=== PATIENT | male | born 1945 | race Caucasian/White ===

== ENCOUNTER 2017-11-09 19:10 | Inpatient (IN) | payer MEDICARE, OTHER ==
[~2017-11-09] VITALS: Ht 193 cm; Wt 82.5 kg
[~2017-11-09 19:10] MED LIST: AEC81 PO; ALEN5TAB PO; AMIO200T44 PO; APIX5TAB PO; ASCO500T9 PO; ATOR40TA71 PO; CALC-916 PO; FERR-82 PO; FEXO180T94 PO; METO100T14 PO; METO2.5T2 PO; METR500T PO; MONT10TA21 PO; MULT-1203 PO; ROPI0.255 PO; SERT100T12 PO; TIOT18CA3 IH
[2017-11-09 19:40] LABS: BASOPHILS % (AUTO) 0.7 % (0.0-5.0); EOSINOPHILS % (AUTO) 0.8 % (0.0-8.0); HEMATOCRIT 42.9 % (42-54); LYMPHOCYTES % (AUTO) 14.4 % (21.0-51.0); MEAN CORPUSCULAR HEMOGLOBIN 31.5 pg (27.0-33.0); MEAN CORPUSCULAR HGB CONC 33.6 g/dL (32.0-36.0); MEAN CORPUSCULAR VOLUME 93.6 fL (79-99); MONOCYTES % (AUTO) 9.4 % (3.0-13.0); NEUTROPHILS % (AUTO) 74.7 % (40.0-77.0); PLATELET COUNT (AUTO) 260 K/uL (130-400); RED BLOOD CELL COUNT(AUTO) 4.59 MIL/uL (4.50-6.20); RED CELL DISTRIBUTION WIDTH 14.8 % (11.0-15.5); WHITE BLOOD COUNT (AUTO) 9.9 K/uL (4.8-10.8)
[2017-11-09 19:55] LABS: CREATININE 1.5 mg/dL (0.5-1.5)
[2017-11-09 19:59] LABS: ALBUMIN 3.3 g/dL (3.5-5.0); BILIRUBIN,TOTAL 0.8 mg/dL (0.2-1.0); TOTAL PROTEIN, SERUM 7.5 g/dL (6.0-8.3)
[2017-11-09 20:05] LABS: APPEARANCE,URINE Cloudy (CLEAR); BILIRUBIN,URINE Negative (NEGATIVE); COLOR,URINE Yellow (YELLOW); GLUCOSE, URINE (UA) Negative (NEGATIVE); KETONES,URINE Negative (NEGATIVE); LEUKOCYTE ESTERASE ,URINE Trace (NEGATIVE); NITRATE,URINE Negative (NEGATIVE); OCCULT BLOOD,URINE Negative (NEGATIVE); PROTEIN,URINE Negative (NEGATIVE)
[2017-11-09 20:15] LABS: RBC,URINE None Seen /HPF (0-1)
[2017-11-09 20:16] LABS: AMORPHOUS SEDIMENT,UR Few /LPF (None Seen); BACTERIA,URINE Few /HPF (None Seen); MUCUS,URINE Few LPF (None Seen); SQUAMOUS EPITHELIAL CELL,UR None Seen /HPF (0-2); WBC,URINE 0-1 /HPF (0-1)
[2017-11-09 20:52] LABS: ABG BASE EXCESS 1.1 mmol/L (-2.0-3.0); ABG HCO3 24.5 mmol/L (21.0-28.0); ABG OXYGEN SATURATION 96.3 % (95.0-99.0); ABG PCO2 35 mmHg (35-48)
[2017-11-10] MEDS ORDERED: HYDRALAZINE HCL 20 MG/ML VIAL IV PRN
[2017-11-10 05:45] LABS: THYROID STIMULATING HORMONE 7.06 uIU/mL (0.36-3.74)
[2017-11-10] MEDS: FAMOTIDINE 20MG TAB 20 MG TAB PO SCH (09:00)
[2017-11-10] MEDS ORDERED: ENOXAPARIN SODIUM 30 MG/0.3 ML SQ SCH (09:00)
[2017-11-10] MEDS ORDERED: ENOXAPARIN SODIUM 30 MG/0.3 ML SQ ONE (11:33)
[2017-11-10] MEDS ORDERED: FAMOTIDINE 20MG TAB 20 MG TAB ONE (11:33)
[2017-11-10 22:05] VITALS: BP 146/70
[2017-11-10] MEDS ORDERED: SODIUM CHLORIDE 0.9% 1000ML 1,000 ML IV ONE (22:30)
[2017-11-10] MEDS ORDERED: SODIUM CHLORIDE 0.9% 1000ML 1,000 ML IV SCH (23:45)
[2017-11-10] MEDS ORDERED: HALOPERIDOL LACTATE 5 MG/ML VIAL IV SCH (23:45)
[2017-11-10] MEDS ORDERED: PHARMACY COMMUNICATION MISC SCH (23:45)
[2017-11-11 03:38] VITALS: BP 137/91
[2017-11-11 07:00] VITALS: BP_SYST 120; BP_SYST 131; BP_SYST 134; BP_DIAS 76; BP_DIAS 85; BP_DIAS 91
[2017-11-11] MEDS: SPIRIVA 18MCG IH SCH (09:00)
[2017-11-11] MEDS ORDERED: AMIODARONE HCL 200 MG TABLET PO SCH (09:00)
[2017-11-11] MEDS ORDERED: METOLAZONE 2.5 MG TABLET PO SCH (09:00)
[2017-11-11] MEDS: ASPIRIN 81 MG EC TAB PO SCH (10:56)
[2017-11-11] MEDS: APIXABAN 5 MG TABLET PO SCH ×2 (10:56→21:05)
[2017-11-11] MEDS: FAMOTIDINE 20MG TAB 20 MG TAB PO SCH (11:43)
[2017-11-11] MEDS ORDERED: PRAZ1CAP5 PO (13:30)
[2017-11-11] MEDS ORDERED: POTA20TA12 PO (13:30)
[2017-11-11] MEDS ORDERED: DULO60CA63 PO (13:30)
[2017-11-11] MEDS ORDERED: FURO40SO4 PO (13:30)
[2017-11-11 15:23] VITALS: BP 136/87
[2017-11-11 19:20] VITALS: BP 128/83
[2017-11-11] MEDS: PINDOLOL 5 MG TAB PO SCH (21:05)
[2017-11-11] MEDS: MONTELUKAST SODIUM 10 MG TAB PO SCH (21:05)
[2017-11-11] MEDS: ATORVASTATIN CALCIUM 40 MG TABLET PO SCH (21:06)
[2017-11-12] VITALS (7 sets, daily range): BP systolic 104–147; BP diastolic 66–88
[2017-11-12 04:42] LABS: BASOPHILS % (AUTO) 0.7 % (0.0-5.0); EOSINOPHILS % (AUTO) 0.8 % (0.0-8.0); HEMATOCRIT 42.5 % (42-54); LYMPHOCYTES % (AUTO) 18.4 % (21.0-51.0); MEAN CORPUSCULAR HEMOGLOBIN 31.9 pg (27.0-33.0); MEAN CORPUSCULAR HGB CONC 34.1 g/dL (32.0-36.0); MEAN CORPUSCULAR VOLUME 93.5 fL (79-99); MONOCYTES % (AUTO) 12.5 % (3.0-13.0); NEUTROPHILS % (AUTO) 67.6 % (40.0-77.0); NUCLEATED RED BLOOD CELLS 0.1 % (0.0-0.19); PLATELET COUNT (AUTO) 248 K/uL (130-400); RED BLOOD CELL COUNT(AUTO) 4.54 MIL/uL (4.50-6.20); RED CELL DISTRIBUTION WIDTH 14.4 % (11.0-15.5); WHITE BLOOD COUNT (AUTO) 10.6 K/uL (4.8-10.8)
[2017-11-12 04:52] LABS: CREATININE 1.3 mg/dL (0.5-1.5)
[2017-11-12] MEDS: ALENDRONATE SODIUM 5 MG PO SCH (07:00)
[2017-11-12] MEDS: MULTIVITAMIN TABLET PO SCH (09:00)
[2017-11-12] MEDS: FAMOTIDINE 20MG TAB 20 MG TAB PO SCH (09:00)
[2017-11-12] MEDS: ASCORBIC ACID 500 MG TAB PO SCH (09:00)
[2017-11-12] MEDS: APIXABAN 5 MG TABLET PO SCH ×2 (09:02→20:28)
[2017-11-12] MEDS: CALCIUM CARBONATE 500 MG TABLET PO SCH (09:02)
[2017-11-12] MEDS: PINDOLOL 5 MG TAB PO SCH ×2 (09:02→20:29)
[2017-11-12] MEDS: ASPIRIN 81 MG EC TAB PO SCH (09:02)
[2017-11-12] MEDS ORDERED: ALPRAZOLAM 0.5 MG TABLET PO ONE ×2 (14:00→16:30)
[2017-11-12] MEDS ORDERED: ACETAMINOPHEN 325 MG TAB PO PRN (15:45)
[2017-11-12] MEDS: MONTELUKAST SODIUM 10 MG TAB PO SCH (20:28)
[2017-11-12] MEDS: ALPRAZOLAM 0.5 MG TABLET PO SCH (20:28)
[2017-11-12] MEDS: ATORVASTATIN CALCIUM 40 MG TABLET PO SCH (20:28)
[2017-11-12] MEDS: SPIRIVA 18MCG IH SCH (20:30)
[2017-11-13 03:45] VITALS: BP 122/81
[2017-11-13 04:41] LABS: BASOPHILS % (AUTO) 0.6 % (0.0-5.0); EOSINOPHILS % (AUTO) 0.6 % (0.0-8.0); HEMATOCRIT 47.4 % (42-54); LYMPHOCYTES % (AUTO) 18.4 % (21.0-51.0); MEAN CORPUSCULAR HEMOGLOBIN 31.7 pg (27.0-33.0); MEAN CORPUSCULAR HGB CONC 33.9 g/dL (32.0-36.0); MEAN CORPUSCULAR VOLUME 93.4 fL (79-99); MONOCYTES % (AUTO) 12.9 % (3.0-13.0); NEUTROPHILS % (AUTO) 67.5 % (40.0-77.0); PLATELET COUNT (AUTO) 248 K/uL (130-400); RED BLOOD CELL COUNT(AUTO) 5.08 MIL/uL (4.50-6.20); RED CELL DISTRIBUTION WIDTH 14.7 % (11.0-15.5); WHITE BLOOD COUNT (AUTO) 11.4 K/uL (4.8-10.8)
[2017-11-13 04:54] LABS: CREATININE 1.6 mg/dL (0.5-1.5)
[2017-11-13] MEDS: ALENDRONATE SODIUM 5 MG PO SCH (07:00)
[2017-11-13 08:09] VITALS: BP 128/83
[2017-11-13] MEDS: ALPRAZOLAM 0.5 MG TABLET PO SCH (09:00)
[2017-11-13] MEDS: FAMOTIDINE 20MG TAB 20 MG TAB PO SCH (09:00)
[2017-11-13] MEDS: MULTIVITAMIN TABLET PO SCH (09:05)
[2017-11-13] MEDS: AMIODARONE HCL 200 MG TABLET PO SCH (09:06)
[2017-11-13] MEDS: APIXABAN 5 MG TABLET PO SCH ×2 (09:06→21:04)
[2017-11-13] MEDS: PINDOLOL 5 MG TAB PO SCH ×2 (09:06→21:04)
[2017-11-13] MEDS: ASPIRIN 81 MG EC TAB PO SCH (09:06)
[2017-11-13] MEDS: ASCORBIC ACID 500 MG TAB PO SCH (09:06)
[2017-11-13] MEDS: CALCIUM CARBONATE 500 MG TABLET PO SCH (09:07)
[2017-11-13] MEDS: SPIRIVA 18MCG IH SCH (09:19)
[2017-11-13 11:00] VITALS: BP 119/87
[2017-11-13] MEDS ORDERED: ONDANSETRON HCL 4 MG/2 ML VIAL IVP PRN (13:00)
[2017-11-13 18:29] VITALS: BP 110/75
[2017-11-13] MEDS: IPRATROPIUM/ALBUTEROL SULFATE 3 ML SOLUTION IH SCH ×2 (18:33→23:15)
[2017-11-13 19:50] VITALS: BP 105/76
[2017-11-13] MEDS: ATORVASTATIN CALCIUM 40 MG TABLET PO SCH (21:04)
[2017-11-13] MEDS: MONTELUKAST SODIUM 10 MG TAB PO SCH (21:04)
[2017-11-13 23:50] VITALS: BP 102/72
[2017-11-14 03:18] VITALS: BP 110/74
[2017-11-14 04:56] LABS: BASOPHILS % (AUTO) 0.3 % (0.0-5.0); EOSINOPHILS % (AUTO) 0.4 % (0.0-8.0); LYMPHOCYTES % (AUTO) 12.3 % (21.0-51.0); MEAN CORPUSCULAR HEMOGLOBIN 32.2 pg (27.0-33.0); MEAN CORPUSCULAR HGB CONC 34.4 g/dL (32.0-36.0); MEAN CORPUSCULAR VOLUME 93.6 fL (79-99); MONOCYTES % (AUTO) 8.9 % (3.0-13.0); NEUTROPHILS % (AUTO) 78.1 % (40.0-77.0); PLATELET COUNT (AUTO) 247 K/uL (130-400); RED BLOOD CELL COUNT(AUTO) 4.49 MIL/uL (4.50-6.20); RED CELL DISTRIBUTION WIDTH 14.8 % (11.0-15.5); WHITE BLOOD COUNT (AUTO) 13.5 K/uL (4.8-10.8)
[2017-11-14 05:08] LABS: CREATININE 1.7 mg/dL (0.5-1.5); POTASSIUM 3.6 mmol/L (3.5-5.1)
[2017-11-14] MEDS: IPRATROPIUM/ALBUTEROL SULFATE 3 ML SOLUTION IH SCH ×3 (06:09→18:32)
[2017-11-14] MEDS: ALENDRONATE SODIUM 5 MG PO SCH (07:00)
[2017-11-14 07:29] VITALS: BP 100/63
[2017-11-14] MEDS: SPIRIVA 18MCG IH SCH (09:00)
[2017-11-14] MEDS: PINDOLOL 5 MG TAB PO SCH ×2 (09:00→20:57)
[2017-11-14] MEDS: APIXABAN 5 MG TABLET PO SCH ×2 (09:18→20:57)
[2017-11-14] MEDS: AMIODARONE HCL 200 MG TABLET PO SCH (09:18)
[2017-11-14] MEDS: MULTIVITAMIN TABLET PO SCH (09:18)
[2017-11-14] MEDS: ASCORBIC ACID 500 MG TAB PO SCH (09:18)
[2017-11-14] MEDS: CALCIUM CARBONATE 500 MG TABLET PO SCH (09:18)
[2017-11-14] MEDS: MEMANTINE HCL 5 MG TABLET PO SCH (09:19)
[2017-11-14] MEDS: ASPIRIN 81 MG EC TAB PO SCH (09:19)
[2017-11-14] MEDS: FAMOTIDINE 20MG TAB 20 MG TAB PO SCH (09:20)
[2017-11-14 11:55] VITALS: BP 110/75
[2017-11-14 15:19] VITALS: BP 98/57
[2017-11-14 19:43] VITALS: BP 103/68
[2017-11-14] MEDS: ATORVASTATIN CALCIUM 40 MG TABLET PO SCH (20:57)
[2017-11-14] MEDS: MONTELUKAST SODIUM 10 MG TAB PO SCH (20:57)
[2017-11-14 22:52] LABS: APPEARANCE,URINE Clear (CLEAR); BILIRUBIN,URINE Negative (NEGATIVE); COLOR,URINE Yellow (YELLOW); GLUCOSE, URINE (UA) Negative (NEGATIVE); KETONES,URINE Negative (NEGATIVE); LEUKOCYTE ESTERASE ,URINE Negative (NEGATIVE); NITRATE,URINE Negative (NEGATIVE); OCCULT BLOOD,URINE Negative (NEGATIVE); PROTEIN,URINE Negative (NEGATIVE)
[2017-11-15] VITALS: BP 118/72
[2017-11-15] MEDS: IPRATROPIUM/ALBUTEROL SULFATE 3 ML SOLUTION IH SCH ×3 (00:47→11:44)
[2017-11-15 04:00] VITALS: BP 114/84
[2017-11-15 05:00] LABS: BASOPHILS % (AUTO) 0.3 % (0.0-5.0); EOSINOPHILS % (AUTO) 0.8 % (0.0-8.0); HEMATOCRIT 41.3 % (42-54); LYMPHOCYTES % (AUTO) 16.4 % (21.0-51.0); MEAN CORPUSCULAR HEMOGLOBIN 32.1 pg (27.0-33.0); MEAN CORPUSCULAR HGB CONC 34.3 g/dL (32.0-36.0); MEAN CORPUSCULAR VOLUME 93.7 fL (79-99); MONOCYTES % (AUTO) 11.9 % (3.0-13.0); NEUTROPHILS % (AUTO) 70.6 % (40.0-77.0); PLATELET COUNT (AUTO) 207 K/uL (130-400); RED BLOOD CELL COUNT(AUTO) 4.41 MIL/uL (4.50-6.20); RED CELL DISTRIBUTION WIDTH 14.4 % (11.0-15.5); WHITE BLOOD COUNT (AUTO) 9.3 K/uL (4.8-10.8)
[2017-11-15 05:20] LABS: ALBUMIN 3.2 g/dL (3.5-5.0); BILIRUBIN,TOTAL 0.9 mg/dL (0.2-1.0); CREATININE 1.6 mg/dL (0.5-1.5); MAGNESIUM 2.1 mg/dL (1.80-2.40); PHOSPHORUS 3.5 mg/dL (2.5-4.9); POTASSIUM 3.7 mmol/L (3.5-5.1); TOTAL PROTEIN, SERUM 7.1 g/dL (6.0-8.3); URIC ACID 5.4 mg/dL (2.6-7.2)
[2017-11-15] MEDS: ALENDRONATE SODIUM 5 MG PO SCH (07:00)
[2017-11-15 08:00] VITALS: BP 108/69
[2017-11-15] MEDS: CALCIUM CARBONATE 500 MG TABLET PO SCH (08:25)
[2017-11-15] MEDS: ASPIRIN 81 MG EC TAB PO SCH (08:25)
[2017-11-15] MEDS: ASCORBIC ACID 500 MG TAB PO SCH (08:25)
[2017-11-15] MEDS: PINDOLOL 5 MG TAB PO SCH (08:25)
[2017-11-15] MEDS: MEMANTINE HCL 5 MG TABLET PO SCH (08:25)
[2017-11-15] MEDS: AMIODARONE HCL 200 MG TABLET PO SCH (08:25)
[2017-11-15] MEDS: APIXABAN 5 MG TABLET PO SCH (08:25)
[2017-11-15] MEDS: MULTIVITAMIN TABLET PO SCH (08:25)
[2017-11-15] MEDS: SPIRIVA 18MCG IH SCH (08:27)
[2017-11-15] MEDS ORDERED: FOLIC ACID/VITAMIN B COMP W-C 1 MG CAPSULE PO SCH (09:00)
[2017-11-15 11:53] VITALS: BP 124/81
== END 2017-11-15 17:30 | DRG 683 ==
LOC: EDH 19:10 → EDHIP 22:31 → OBSVTOIN 22:31 → 3CH 11-10 21:35
PROVIDERS: ADMIT Internal Medicine Nephrology; ATTEND Internal Medicine Nephrology
PROC: 5A09357 Assistance with Respiratory Ventilation, Less than 24 Consecutive Hours, Continuous Positive Airway Pressure (ICD-10-PCS; principal; 2017-11-13)
DX: N17.9 Acute kidney failure, unspecified (principal); F05 Delirium due to known physiological condition; E11.22 Type 2 diabetes mellitus with diabetic chronic kidney disease; I42.0 Dilated cardiomyopathy; I95.1 Orthostatic hypotension; I48.91 Unspecified atrial fibrillation; J84.10 Pulmonary fibrosis, unspecified; N28.1 Cyst of kidney, acquired; D64.9 Anemia, unspecified; J44.9 Chronic obstructive pulmonary disease, unspecified; E66.9 Obesity, unspecified; E78.5 Hyperlipidemia, unspecified; F03.90 Unspecified dementia, unspecified severity, without behavioral disturbance, psychotic disturbance, mood disturbance, and anxiety; F41.9 Anxiety disorder, unspecified; G47.33 Obstructive sleep apnea (adult) (pediatric); I12.9 Hypertensive chronic kidney disease with stage 1 through stage 4 chronic kidney disease, or unspecified chronic kidney disease; N18.9 Chronic kidney disease, unspecified; I25.10 Atherosclerotic heart disease of native coronary artery without angina pectoris; L92.9 Granulomatous disorder of the skin and subcutaneous tissue, unspecified; M19.90 Unspecified osteoarthritis, unspecified site; R79.1 Abnormal coagulation profile; Z79.01 Long term (current) use of anticoagulants; Z86.73 Personal history of transient ischemic attack (TIA), and cerebral infarction without residual deficits; Z86.79 Personal history of other diseases of the circulatory system; Z95.0 Presence of cardiac pacemaker; Z68.22 Body mass index [BMI] 22.0-22.9, adult
CPT/HCPCS: 36415; 36600; 70450; 71045; 71250; 76770; 80048; 80053; 80061; 81001; 81003; 82150; 82803; 83605; 83690; 83735; 83880; 83935; 84100; 84300; 84443; 84484; 84550; 85025; 85378; 87804; 93005; 94640; 94664; 97039; 99291; J0360; J1630; J1650; J7030

== ENCOUNTER 2018-07-04 22:25 | Observation (INO) | payer OTHER ==
[~2018-07-04] VITALS: Ht 180.3 cm; Wt 95.5 kg
[~2018-07-04 22:25] MED LIST changes: -AMIO200T44 PO; +DULO60CA63 PO; -FERR-82 PO; +FURO40SO4 PO; -METO100T14 PO; -METO2.5T2 PO; +POTA20TA12 PO; +PRAZ1CAP5 PO; -ROPI0.255 PO; -SERT100T12 PO
[2018-07-04 22:53] LABS: BASOPHILS % (AUTO) 0.7 % (0.0-5.0); HEMATOCRIT 40.1 % (42-54); LYMPHOCYTES % (AUTO) 12.2 % (21.0-51.0); MEAN CORPUSCULAR HEMOGLOBIN 29.8 pg (27.0-33.0); MEAN CORPUSCULAR HGB CONC 32.9 g/dL (32.0-36.0); MEAN CORPUSCULAR VOLUME 90.4 fL (79-99); MONOCYTES % (AUTO) 10.3 % (3.0-13.0); NEUTROPHILS % (AUTO) 75.8 % (40.0-77.0); PLATELET COUNT (AUTO) 174 K/uL (130-400); RED BLOOD CELL COUNT(AUTO) 4.43 MIL/uL (4.50-6.20); RED CELL DISTRIBUTION WIDTH 15.3 % (11.0-15.5); WHITE BLOOD COUNT (AUTO) 9.5 K/uL (4.8-10.8)
[2018-07-04 23:12] LABS: CREATININE 1.9 mg/dL (0.5-1.5); POTASSIUM 4.1 mmol/L (3.5-5.1)
[2018-07-04 23:17] LABS: ALBUMIN 3.4 g/dL (3.5-5.0); BILIRUBIN,TOTAL 0.5 mg/dL (0.2-1.0); TOTAL PROTEIN, SERUM 7.4 g/dL (6.0-8.3)
[2018-07-04 23:30] LABS: APPEARANCE,URINE CLEAR (CLEAR); BILIRUBIN,URINE Negative (NEGATIVE); COLOR,URINE Yellow (YELLOW); GLUCOSE, URINE (UA) Negative (NEGATIVE); KETONES,URINE Trace mg/dL (NEGATIVE); LEUKOCYTE ESTERASE ,URINE Negative (NEGATIVE); NITRATE,URINE Negative (NEGATIVE); OCCULT BLOOD,URINE Negative (NEGATIVE); PROTEIN,URINE Negative (NEGATIVE)
[2018-07-05] MEDS ORDERED: MORPHINE SULFATE 5 MG/ML VIAL IV PRN (01:45)
[2018-07-05] MEDS ORDERED: ONDANSETRON HCL 4 MG/2 ML VIAL IVP PRN (01:45)
--- NOTE | 2018-07-05 02:31 | NUR ---
REPORT RECEIVED FROM FADI HERBERT
--- NOTE | 2018-07-05 03:00 | NUR ---
PT ARRIVED TO UNIT. NO DISTRESS NOTED. STABLE.
[2018-07-05 04:00] VITALS: BP 149/105
--- NOTE | 2018-07-05 04:00 | NUR ---
PT ASSESSMENT- AAOX3. AT TIMES FORGETFUL ACCORDING TO REPORT. PERRLA. DISCOLORATION NOTED TO LEFT UPPER EYE, AND RIGHT LOWER EYE AREA. STATES OCCURRED POST FALL. HAS BROKEN FRONT TOOTH FROM PREVIOUS FALL. DISCOLORATIONS TO UPPER EXTREMITIES, SKIN TEAR TO LEFT ELBOW DUE TO FALL. ACTIVE BOWEL SOUNDS. LAST BM 07/04. STATES OCCASIONAL CONSTIPATION. LUNG SOUNDS. CLEAR TO UPPER LOBES. NO PAIN STATES AT THIS TIME. NO SOB. ROOM AIR. ABLE TO AMBULATE WITH MINIMAL ASSIST. NO EDEMA NOTED. HARD OF HEARING TO RIGHT EAR. MEDICATION LIST GIVEN TO NURSE. MEDICATIONS AT HOME.
[2018-07-05] MEDS ORDERED: LISI40TA4 PO (04:38)
[2018-07-05] MEDS ORDERED: AMIO200T5 PO (04:38)
[2018-07-05] MEDS ORDERED: LEVO25TA4 PO (04:38)
[2018-07-05] MEDS ORDERED: LEVO50TA6 PO (04:38)
[2018-07-05] MEDS ORDERED: MONT10TA21 PO (04:38)
[2018-07-05] MEDS ORDERED: MELA5TAB14 PO (04:38)
[2018-07-05] MEDS ORDERED: PIND10TA2 PO ×2 (04:38→11:38)
[2018-07-05] MEDS ORDERED: TORS5TAB12 PO (04:38)
[2018-07-05] MEDS ORDERED: PHARMACY COMMUNICATION MISC SCH (05:45)
[2018-07-05 07:38] VITALS: BP 135/76
[2018-07-05] MEDS ORDERED: AMIODARONE HCL 200 MG TABLET PO SCH (09:00)
[2018-07-05] MEDS ORDERED: PANTOPRAZOLE SODIUM 40 MG TABLET.DR PO SCH (09:00)
[2018-07-05] MEDS ORDERED: TORSEMIDE 20 MG TAB PO SCH (09:00)
[2018-07-05] MEDS ORDERED: PINDOLOL 5 MG TAB PO SCH (09:00)
[2018-07-05] MEDS ORDERED: KETOROLAC TROMETHAMINE 30MG/ML IV SCH (09:30)
[2018-07-05 09:54] LABS: CREATINE KINASE, TOTAL 132 U/L (21-232); MYOGLOBIN 128 ng/mL (10-92); TROPONIN I < 0.04 ng/mL (0.00-0.06)
[2018-07-05] MEDS ORDERED: PRAZ1CAP5 PO (11:38)
[2018-07-05] MEDS ORDERED: LEVO25TA54 PO (11:38)
[2018-07-05] MEDS ORDERED: ATOR40TA69 PO (11:38)
[2018-07-05] MEDS ORDERED: ASCO500C18 PO (11:38)
[2018-07-05] MEDS ORDERED: LEVO50 PO (11:38)
[2018-07-05] MEDS ORDERED: MIDO5TAB PO (11:38)
[2018-07-05] MEDS ORDERED: BUDE10.22 IH (11:38)
[2018-07-05 11:57] VITALS: BP 143/77
[2018-07-05] MEDS ORDERED: MONTELUKAST SODIUM 10 MG TAB PO SCH (21:00)
[2018-07-05] MEDS ORDERED: LISINOPRIL 40 MG TABLET PO SCH (21:00)
[2018-07-05] MEDS ORDERED: **HM** MELATONIN 10MG PO SCH (21:00)
[2018-07-06] MEDS ORDERED: LEVOTHYROXINE 50 MCG TABLET PO SCH (09:00)
[2018-07-07] MEDS ORDERED: LEVOTHYROXINE 25 MCG TABLET PO SCH (09:00)
== END 2018-07-05 12:38 | disposition home or self-care (01) ==
LOC: EDH 22:25 → INTOOBSV 07-05 01:21 → EDHIP 07-05 01:21 → 2AH 07-05 02:31
PROVIDERS: ADMIT Hospitalist; ATTEND Hospitalist
DX: R07.89 Other chest pain (principal); I11.0 Hypertensive heart disease with heart failure; I50.9 Heart failure, unspecified; E78.5 Hyperlipidemia, unspecified; G47.33 Obstructive sleep apnea (adult) (pediatric); I42.9 Cardiomyopathy, unspecified; I48.91 Unspecified atrial fibrillation; I95.1 Orthostatic hypotension; J44.9 Chronic obstructive pulmonary disease, unspecified; Z82.0 Family history of epilepsy and other diseases of the nervous system; Z82.49 Family history of ischemic heart disease and other diseases of the circulatory system; Z82.5 Family history of asthma and other chronic lower respiratory diseases; Z83.3 Family history of diabetes mellitus; Z86.73 Personal history of transient ischemic attack (TIA), and cerebral infarction without residual deficits; Z86.79 Personal history of other diseases of the circulatory system; Z91.81 History of falling; Z95.0 Presence of cardiac pacemaker; Z79.01 Long term (current) use of anticoagulants
CPT/HCPCS: 36415 ×2; 70450; 71046; 80053; 81003; 82550 ×2; 83874; 83880; 84484 ×2; 85025; 93005; 96374; 99284; G0378 ×11; J1885

== ENCOUNTER 2018-07-15 09:30 | Outpatient (CLI) | payer MEDICARE ==
[~2018-07-15 09:30] MED LIST changes: -ALEN5TAB PO; +AMIO200T5 PO; +ASCO500C18 PO; -ASCO500T9 PO; +ATOR40TA69 PO; -ATOR40TA71 PO; +BUDE10.22 IH; -FURO40SO4 PO; +LEVO25TA54 PO; +LEVO50 PO; +MELA5TAB14 PO; -METR500T PO; +MIDO5TAB PO; +TORS5TAB12 PO
[2018-07-15 13:08] VITALS: BP 110/72
== END 2018-08-26 14:14 | disposition home or self-care (01) ==
LOC: WHH 09:30
PROVIDERS: ATTEND Podiatrist Foot & Ankle Surgery
DX: L89.892 Pressure ulcer of other site, stage 2 (principal); I73.9 Peripheral vascular disease, unspecified; B35.1 Tinea unguium; J44.9 Chronic obstructive pulmonary disease, unspecified; I10 Essential (primary) hypertension; E78.5 Hyperlipidemia, unspecified; I48.91 Unspecified atrial fibrillation; G47.33 Obstructive sleep apnea (adult) (pediatric); G62.9 Polyneuropathy, unspecified; Z95.0 Presence of cardiac pacemaker; Z86.73 Personal history of transient ischemic attack (TIA), and cerebral infarction without residual deficits
CPT/HCPCS: 11042; 11721; A4450; A6207

== ENCOUNTER → 2018-07-29 | Outpatient (CLI) | payer MEDICARE ==
[2018-07-29 15:22] VITALS: BP 129/82
== END | disposition home or self-care (01) ==
LOC: WHH 09:15
PROVIDERS: ATTEND Podiatrist Foot & Ankle Surgery
DX: L89.892 Pressure ulcer of other site, stage 2 (principal); I11.0 Hypertensive heart disease with heart failure; I50.9 Heart failure, unspecified; I48.91 Unspecified atrial fibrillation; I73.9 Peripheral vascular disease, unspecified; G62.9 Polyneuropathy, unspecified; G47.30 Sleep apnea, unspecified; E78.5 Hyperlipidemia, unspecified; J44.9 Chronic obstructive pulmonary disease, unspecified; Z86.79 Personal history of other diseases of the circulatory system; Z79.01 Long term (current) use of anticoagulants; Z95.0 Presence of cardiac pacemaker
CPT/HCPCS: 97597; A6207

== ENCOUNTER → 2018-08-12 | Outpatient (CLI) | payer MEDICARE ==
[2018-08-12 13:18] VITALS: BP 127/82
== END | disposition home or self-care (01) ==
LOC: WHH 09:30
PROVIDERS: ATTEND Podiatrist Foot & Ankle Surgery
DX: L89.892 Pressure ulcer of other site, stage 2 (principal); I11.0 Hypertensive heart disease with heart failure; I50.9 Heart failure, unspecified; I48.91 Unspecified atrial fibrillation; I73.9 Peripheral vascular disease, unspecified; J44.9 Chronic obstructive pulmonary disease, unspecified; E78.5 Hyperlipidemia, unspecified; G47.33 Obstructive sleep apnea (adult) (pediatric); G62.9 Polyneuropathy, unspecified; Z95.0 Presence of cardiac pacemaker; Z79.01 Long term (current) use of anticoagulants; Z86.73 Personal history of transient ischemic attack (TIA), and cerebral infarction without residual deficits
CPT/HCPCS: G0463

== ENCOUNTER → 2018-08-26 | Outpatient (CLI) | payer MEDICARE ==
[2018-08-26 13:06] VITALS: BP 124/81
== END | disposition home or self-care (01) ==
LOC: WHH 09:15
PROVIDERS: ATTEND Podiatrist Foot & Ankle Surgery
DX: L89.892 Pressure ulcer of other site, stage 2 (principal); I11.0 Hypertensive heart disease with heart failure; I50.9 Heart failure, unspecified; I48.91 Unspecified atrial fibrillation; I73.9 Peripheral vascular disease, unspecified; J44.9 Chronic obstructive pulmonary disease, unspecified; E78.5 Hyperlipidemia, unspecified; G62.9 Polyneuropathy, unspecified; G47.33 Obstructive sleep apnea (adult) (pediatric); Z99.2 Dependence on renal dialysis; Z79.01 Long term (current) use of anticoagulants; Z86.73 Personal history of transient ischemic attack (TIA), and cerebral infarction without residual deficits
CPT/HCPCS: 97597

== ENCOUNTER 2019-03-09 16:57 | Emergency (ER) | payer MEDICARE ==
[~2019-03-09 16:57] MED LIST changes: -DULO60CA63 PO; +DULO60CA64 PO
[2019-03-09 17:18] LABS: BASOPHILS % (AUTO) 0.7 % (0.0-5.0); EOSINOPHILS % (AUTO) 0.9 % (0.0-8.0); HEMATOCRIT 42.5 % (42-54); LYMPHOCYTES % (AUTO) 13.7 % (21.0-51.0); MEAN CORPUSCULAR HEMOGLOBIN 30.5 pg (27.0-33.0); MEAN CORPUSCULAR HGB CONC 33.8 g/dL (32.0-36.0); MEAN CORPUSCULAR VOLUME 90.2 fL (79-99); MONOCYTES % (AUTO) 13.2 % (3.0-13.0); NEUTROPHILS % (AUTO) 71.5 % (40.0-77.0); NUCLEATED RED BLOOD CELLS 0.1 % (0.0-0.19); PLATELET COUNT (AUTO) 178 K/uL (130-400); RED BLOOD CELL COUNT(AUTO) 4.71 MIL/uL (4.50-6.20); RED CELL DISTRIBUTION WIDTH 15.6 % (11.0-15.5)
[2019-03-09 17:35] LABS: PARTIAL THROMBOPLASTIN TIME 30.2 SEC (26.3-35.5)
[2019-03-09 17:45] LABS: INR 1.09 (0.85-1.15); PROTHROMBIN TIME 11.4 SEC (9.6-11.6)
== END 2019-03-09 18:32 | disposition home or self-care (01) ==
LOC: EDH 16:57
DX: S51.012A Laceration without foreign body of left elbow, initial encounter (principal); S00.12XA Contusion of left eyelid and periocular area, initial encounter; J45.909 Unspecified asthma, uncomplicated; E78.5 Hyperlipidemia, unspecified; I11.0 Hypertensive heart disease with heart failure; I50.9 Heart failure, unspecified; Z95.810 Presence of automatic (implantable) cardiac defibrillator; W18.39XA Other fall on same level, initial encounter; Y93.01 Activity, walking, marching and hiking; Y92.89 Other specified places as the place of occurrence of the external cause; Y99.8 Other external cause status
CPT/HCPCS: 36415; 70450; 72125; 85025; 85610; 85730; 99291

== ENCOUNTER → 2019-03-16 | Outpatient (CLI) | payer MEDICARE ==
[~2019-03-16] MED LIST changes: -MIDO5TAB PO; +MIDO5TAB4 PO
== END | disposition home or self-care (01) ==
LOC: SHCH 14:32
PROVIDERS: ATTEND Internal Medicine Cardiovascular Disease
DX: I08.3 Combined rheumatic disorders of mitral, aortic and tricuspid valves (principal)
CPT/HCPCS: 93306

== ENCOUNTER → 2022-03-21 | Outpatient (CLI) | payer MEDICARE ==
[~2022-03-21] MED LIST changes: -AMIO200T5 PO; +AMIO200T68 PO; +POTA-192 PO; -POTA20TA12 PO
[2022-03-21 12:26] LABS: BASOPHILS % (AUTO) 0.7 % (0.0-5.0); EOSINOPHILS % (AUTO) 1.7 % (0.0-8.0); HEMATOCRIT 42.7 % (42-54); LYMPHOCYTES % (AUTO) 19.2 % (21.0-51.0); MEAN CORPUSCULAR HEMOGLOBIN 29.8 pg (27.0-33.0); MEAN CORPUSCULAR HGB CONC 32.1 g/dL (32.0-36.0); MONOCYTES % (AUTO) 12.6 % (3.0-13.0); NEUTROPHILS % (AUTO) 65.6 % (40.0-77.0); PLATELET COUNT (AUTO) 181 K/uL (130-400); RED BLOOD CELL COUNT(AUTO) 4.59 MIL/uL (4.50-6.20); RED CELL DISTRIBUTION WIDTH 14.9 % (11.0-15.5); WHITE BLOOD COUNT (AUTO) 5.7 K/uL (4.8-10.8)
[2022-03-21 13:01] LABS: B-TYPE NATRIURETIC PEPTIDE 76 pg/mL (0-100)
[2022-03-21 13:15] LABS: ALBUMIN 3.5 g/dL (3.5-5.0); CREATININE 1.3 mg/dL (0.5-1.5); MAGNESIUM 2.2 mg/dL (1.80-2.40); POTASSIUM 4.6 mmol/L (3.5-5.1); THYROID STIMULATING HORMONE 2.82 uIU/mL (0.36-3.74)
== END | disposition home or self-care (01) ==
LOC: LAB 11:32
PROVIDERS: ATTEND Internal Medicine Cardiovascular Disease
DX: I42.0 Dilated cardiomyopathy (principal); I47.2 Ventricular tachycardia; I10 Essential (primary) hypertension; E78.5 Hyperlipidemia, unspecified
CPT/HCPCS: 36415; 80053; 83735; 83880; 84436; 84443; 84479; 85025

== ENCOUNTER 2022-04-15 14:14 | Emergency (ER) | payer MEDICARE, OTHER ==
[~2022-04-15] VITALS: Ht 180.3 cm; Wt 117.9 kg
[2022-04-15 14:39] LABS: BASOPHILS % (AUTO) 0.4 % (0.0-5.0); EOSINOPHILS % (AUTO) 0.8 % (0.0-8.0); HEMATOCRIT 41.3 % (42-54); LYMPHOCYTES % (AUTO) 9.6 % (21.0-51.0); MEAN CORPUSCULAR HEMOGLOBIN 30.3 pg (27.0-33.0); MEAN CORPUSCULAR HGB CONC 32.7 g/dL (32.0-36.0); MEAN CORPUSCULAR VOLUME 92.6 fL (79-99); MONOCYTES % (AUTO) 7.6 % (3.0-13.0); NEUTROPHILS % (AUTO) 80.9 % (40.0-77.0); PLATELET COUNT (AUTO) 176 K/uL (130-400); RED BLOOD CELL COUNT(AUTO) 4.46 MIL/uL (4.50-6.20); WHITE BLOOD COUNT (AUTO) 9.4 K/uL (4.8-10.8)
[2022-04-15 14:49] LABS: CREATININE 1.2 mg/dL (0.5-1.5); POTASSIUM 4.4 mmol/L (3.5-5.1)
[2022-04-15 14:50] LABS: INR 1.07 (0.85-1.15); PROTHROMBIN TIME 11.6 SEC (9.6-11.6)
[2022-04-15 14:51] LABS: PARTIAL THROMBOPLASTIN TIME 29.6 SEC (26.3-35.5)
[2022-04-15 14:56] LABS: ALBUMIN 3.4 g/dL (3.5-5.0)
[2022-04-15 15:24] LABS: APPEARANCE,URINE CLEAR (CLEAR); BILIRUBIN,URINE NEGATIVE (NEGATIVE); COLOR,URINE LIGHT-YELLOW (YELLOW); GLUCOSE, URINE (UA) NEGATIVE (NEGATIVE); KETONES,URINE NEGATIVE (NEGATIVE); LEUKOCYTE ESTERASE ,URINE NEGATIVE Leu/uL (NEGATIVE); NITRATE,URINE NEGATIVE (NEGATIVE); OCCULT BLOOD,URINE NEGATIVE (NEGATIVE); PROTEIN,URINE NEGATIVE (NEGATIVE); UROBILINOGEN,URINE 0.2 mg/dL (0.2-1.0)
[2022-04-15 15:31] LABS: BACTERIA,URINE RARE /HPF (None Seen); HYALINE CASTS, URINE 0-1 /LPF (0-1 /LPF); RBC,URINE 0-1 /HPF (0-1)
[2022-04-15] MEDS ORDERED: CYCL5TAB PO (17:44)
[2022-04-15 17:48] VITALS: BP 149/94
== END 2022-04-15 17:53 | disposition home or self-care (01) ==
LOC: EDH 14:14
DX: M54.6 Pain in thoracic spine (principal); I11.0 Hypertensive heart disease with heart failure; I50.9 Heart failure, unspecified; Z79.01 Long term (current) use of anticoagulants; Z79.51 Long term (current) use of inhaled steroids; Z79.82 Long term (current) use of aspirin; Z95.810 Presence of automatic (implantable) cardiac defibrillator; W01.0XXA Fall on same level from slipping, tripping and stumbling without subsequent striking against object, initial encounter; Y93.89 Activity, other specified; Y92.89 Other specified places as the place of occurrence of the external cause; Y99.8 Other external cause status
CPT/HCPCS: 36415; 70450; 71250; 72125; 74176; 80053; 81001; 83880; 84484; 85025; 85610; 85730; 93005

== ENCOUNTER 2022-04-26 11:25 | Emergency (ER) | payer OTHER ==
[~2022-04-26] VITALS: Ht 182.9 cm; Wt 103.4 kg
[~2022-04-26 11:25] MED LIST changes: +CYCL5TAB PO
[2022-04-26 11:57] VITALS: BP 146/87
[2022-04-26 12:15] LABS: BASOPHILS % (AUTO) 0.5 % (0.0-5.0); EOSINOPHILS % (AUTO) 0.9 % (0.0-8.0); HEMATOCRIT 42.3 % (42-54); MEAN CORPUSCULAR HEMOGLOBIN 29.7 pg (27.0-33.0); MEAN CORPUSCULAR HGB CONC 32.6 g/dL (32.0-36.0); MONOCYTES % (AUTO) 7.6 % (3.0-13.0); NEUTROPHILS % (AUTO) 77.4 % (40.0-77.0); PLATELET COUNT (AUTO) 189 K/uL (130-400); RED BLOOD CELL COUNT(AUTO) 4.65 MIL/uL (4.50-6.20); RED CELL DISTRIBUTION WIDTH 14.5 % (11.0-15.5); WHITE BLOOD COUNT (AUTO) 9.6 K/uL (4.8-10.8)
[2022-04-26 12:36] LABS: CREATININE 1.2 mg/dL (0.5-1.5); POTASSIUM 4.1 mmol/L (3.5-5.1)
[2022-04-26 12:45] LABS: ALBUMIN 3.3 g/dL (3.5-5.0); TOTAL PROTEIN, SERUM 7.1 g/dL (6.0-8.3)
[2022-04-26 13:08] LABS: APPEARANCE,URINE SL CLOUDY (CLEAR); BILIRUBIN,URINE NEGATIVE (NEGATIVE); COLOR,URINE YELLOW (YELLOW); GLUCOSE, URINE (UA) NEGATIVE (NEGATIVE); KETONES,URINE NEGATIVE (NEGATIVE); LEUKOCYTE ESTERASE ,URINE LARGE Leu/uL (NEGATIVE); NITRATE,URINE NEGATIVE (NEGATIVE); OCCULT BLOOD,URINE TRACE-INTACT (NEGATIVE); PROTEIN,URINE NEGATIVE (NEGATIVE); UROBILINOGEN,URINE 0.2 mg/dL (0.2-1.0)
[2022-04-26 13:41] LABS: BACTERIA,URINE Moderate /HPF (None Seen); RBC,URINE 0-1 /HPF (0-1)
[2022-04-26 13:42] LABS: SQUAMOUS EPITHELIAL CELL,UR 0-2 /HPF (0-2)
[2022-04-26] MEDS ORDERED: CEPH500B PO (14:35)
== END 2022-04-26 14:52 | disposition home or self-care (01) ==
LOC: EDH 11:25
DX: N39.0 Urinary tract infection, site not specified (principal); I11.0 Hypertensive heart disease with heart failure; I50.9 Heart failure, unspecified; Z98.890 Other specified postprocedural states; Z79.899 Other long term (current) drug therapy; Z79.01 Long term (current) use of anticoagulants; Z79.82 Long term (current) use of aspirin
CPT/HCPCS: 36415; 74176; 80053; 81001; 83690; 84484; 85025; 87088; 93005

== ENCOUNTER 2022-07-17 16:42 | Inpatient (IN) | payer OTHER ==
[~2022-07-17] VITALS: Ht 182.9 cm; Wt 99.3 kg
[~2022-07-17 16:42] MED LIST changes: +CARV3.12 PO; +CETI10TA57 PO; +PANT40TA54 PO
[2022-07-17 17:20] LABS: BASOPHILS % (AUTO) 0.3 % (0.0-5.0); EOSINOPHILS % (AUTO) 1.6 % (0.0-8.0); LYMPHOCYTES % (AUTO) 10.6 % (21.0-51.0); MEAN CORPUSCULAR HEMOGLOBIN 30.2 pg (27.0-33.0); MEAN CORPUSCULAR HGB CONC 32.4 g/dL (32.0-36.0); MEAN CORPUSCULAR VOLUME 93.2 fL (79-99); MONOCYTES % (AUTO) 7.5 % (3.0-13.0); NEUTROPHILS % (AUTO) 79.5 % (40.0-77.0); PLATELET COUNT (AUTO) 168 K/uL (130-400); RED CELL DISTRIBUTION WIDTH 14.9 % (11.0-15.5); WHITE BLOOD COUNT (AUTO) 8.7 K/uL (4.8-10.8)
[2022-07-17 17:28] LABS: CREATININE 1.3 mg/dL (0.5-1.5); POTASSIUM 3.7 mmol/L (3.5-5.1)
[2022-07-17 17:30] LABS: INR 1.07 (0.85-1.15); PROTHROMBIN TIME 11.6 SEC (9.6-11.6)
[2022-07-17 17:32] LABS: ALBUMIN 3.2 g/dL (3.5-5.0); PARTIAL THROMBOPLASTIN TIME 27.6 SEC (26.3-35.5); TOTAL PROTEIN, SERUM 6.7 g/dL (6.0-8.3)
[2022-07-17] MEDS ORDERED: LUBI24CA9 PO (18:44)
[2022-07-17] MEDS ORDERED: DOCU100C33 PO (18:44)
[2022-07-17] MEDS ORDERED: MAGN400T53 PO (18:44)
[2022-07-17] MEDS ORDERED: DIPH25CA53 PO (18:44)
[2022-07-17] MEDS ORDERED: TEST75GE TD (18:44)
[2022-07-17] MEDS ORDERED: ACET-66 PO (18:44)
[2022-07-17] MEDS ORDERED: SENN8.6T32 PO (18:44)
[2022-07-17] MEDS ORDERED: MORPHINE 2 MG SYG IVP ONE (20:00)
[2022-07-17] MEDS ORDERED: ACETAMINOPHEN 325 MG TAB PO PRN ×2 (21:00)
[2022-07-17] MEDS ORDERED: MORPHINE 2 MG SYG IV PRN (21:00)
[2022-07-17] MEDS ORDERED: ONDANSETRON 4MG INJ IV PRN (21:00)
[2022-07-17] MEDS: HYDROMORPHONE 0.5 MG SYG (0.5MG/0.5ML) IV PRN (21:22)
[2022-07-17] MEDS: LACTATED RINGERS 1000ML 1,000 ML IV SCH (21:22)
[2022-07-17] MEDS ORDERED: POTASSIUM CHLORIDE 10% ELIXIR 20 MEQ/15 ML UDCUP PO PRN (22:30)
[2022-07-17] MEDS ORDERED: POTASSIUM CHLORIDE 20MEQ/100ML 100 ML IV PRN (22:30)
[2022-07-17] MEDS ORDERED: MAGNESIUM 2GM PREMIX 50ML 50 ML IV PRN (22:30)
[2022-07-17] MEDS ORDERED: LIDOCAINE HCL-MPF 1% 2ML VIAL IV PRN (22:30)
[2022-07-17] MEDS ORDERED: KCL 20 MEQ ERTAB PO PRN (22:30)
[2022-07-18] VITALS (7 sets, daily range): BP systolic 137–182; BP diastolic 70–92
[2022-07-18 04:37] LABS: BASOPHILS % (AUTO) 0.3 % (0.0-5.0); EOSINOPHILS % (AUTO) 0.3 % (0.0-8.0); HEMATOCRIT 37.6 % (42-54); LYMPHOCYTES % (AUTO) 8.2 % (21.0-51.0); MEAN CORPUSCULAR HEMOGLOBIN 30.5 pg (27.0-33.0); MEAN CORPUSCULAR HGB CONC 32.2 g/dL (32.0-36.0); MEAN CORPUSCULAR VOLUME 94.7 fL (79-99); MONOCYTES % (AUTO) 11.4 % (3.0-13.0); NEUTROPHILS % (AUTO) 79.5 % (40.0-77.0); PLATELET COUNT (AUTO) 149 K/uL (130-400); RED BLOOD CELL COUNT(AUTO) 3.97 MIL/uL (4.50-6.20); WHITE BLOOD COUNT (AUTO) 9.2 K/uL (4.8-10.8)
[2022-07-18 04:59] LABS: B-TYPE NATRIURETIC PEPTIDE 94 pg/mL (0-100)
[2022-07-18 05:13] LABS: CREATININE 1.1 mg/dL (0.5-1.5); PHOSPHORUS 3.8 mg/dL (2.5-4.9); POTASSIUM 3.7 mmol/L (3.5-5.1); THYROID STIMULATING HORMONE 1.76 uIU/mL (0.36-3.74)
[2022-07-18] MEDS: FAMOTIDINE 20MG VIAL IV SCH (08:07)
[2022-07-18] MEDS: HYDROMORPHONE 0.5 MG SYG (0.5MG/0.5ML) IV PRN ×2 (08:07→17:12)
[2022-07-18] MEDS ORDERED: ENOXAPARIN SODIUM 40 MG/0.4 ML SYRINGE SQ SCH (09:00)
[2022-07-18] MEDS ORDERED: CA 600MG+VIT D 400 UNIT TAB 1 TAB TABLET PO SCH (12:45)
[2022-07-18] MEDS ORDERED: CETIRIZINE HCL 5 MG TABLET PO PRN (13:00)
[2022-07-18] MEDS: DULOXETINE HCL 30 MG CAP PO SCH (13:43)
[2022-07-18] MEDS: MULTIVITAMIN TABLET PO SCH (13:43)
[2022-07-18] MEDS: LACTATED RINGERS 1000ML 1,000 ML IV SCH (17:00)
[2022-07-18] MEDS: MONTELUKAST SODIUM 10 MG TAB PO SCH (20:24)
[2022-07-18] MEDS: ATORVASTATIN 40 MG TABLET PO SCH (20:24)
[2022-07-18] MEDS: DOCUSATE SODIUM 100 MG CAP PO SCH (20:24)
[2022-07-18] MEDS: CARVEDILOL 3.125 MG TABLET PO SCH (20:25)
[2022-07-18] MEDS: PRAZOSIN HCL 2 MG PO SCH (20:26)
[2022-07-19] VITALS (24 sets, daily range): BP systolic 114–150; BP diastolic 64–88
[2022-07-19] MEDS: HYDROMORPHONE 0.5 MG SYG (0.5MG/0.5ML) IV PRN ×2 (01:29→10:52)
[2022-07-19 01:50] LABS: APPEARANCE,URINE CLOUDY (CLEAR); BILIRUBIN,URINE NEGATIVE (NEGATIVE); COLOR,URINE YELLOW (YELLOW); GLUCOSE, URINE (UA) NEGATIVE (NEGATIVE); KETONES,URINE NEGATIVE (NEGATIVE); LEUKOCYTE ESTERASE ,URINE NEGATIVE Leu/uL (NEGATIVE); NITRATE,URINE NEGATIVE (NEGATIVE); OCCULT BLOOD,URINE NEGATIVE (NEGATIVE); PROTEIN,URINE 20 mg/dL (NEGATIVE)
[2022-07-19 02:11] LABS: MUCUS,URINE RARE LPF (None Seen); SQUAMOUS EPITHELIAL CELL,UR RARE /HPF (0-2); WBC,URINE 0-1 /HPF (0-1)
[2022-07-19] MEDS ORDERED: LEVOTHYROXINE 50 MCG TABLET ONE (05:25)
[2022-07-19 05:43] LABS: HEMATOCRIT 38.1 % (42-54); MEAN CORPUSCULAR HEMOGLOBIN 29.9 pg (27.0-33.0); MEAN CORPUSCULAR VOLUME 93.4 fL (79-99); RED BLOOD CELL COUNT(AUTO) 4.08 MIL/uL (4.50-6.20); RED CELL DISTRIBUTION WIDTH 15.1 % (11.0-15.5); WHITE BLOOD COUNT (AUTO) 11.2 K/uL (4.8-10.8)
[2022-07-19 06:02] LABS: POTASSIUM 3.6 mmol/L (3.5-5.1)
[2022-07-19] MEDS: LEVOTHYROXINE 50 MCG TABLET PO SCH (06:15)
[2022-07-19] MEDS: DOCUSATE SODIUM 100 MG CAP PO SCH ×2 (08:20→21:00)
[2022-07-19] MEDS: FAMOTIDINE 20MG VIAL IV SCH (10:01)
[2022-07-19] MEDS: DULOXETINE HCL 30 MG CAP PO SCH (10:02)
[2022-07-19] MEDS: AMIODARONE 200 MG TABLET PO SCH (10:02)
[2022-07-19] MEDS: TORSEMIDE 20 MG TAB PO SCH (10:02)
[2022-07-19] MEDS: MULTIVITAMIN TABLET PO SCH (10:02)
[2022-07-19] MEDS: CA 600MG+VIT D 400 UNIT TAB 1 TAB TABLET PO SCH (10:02)
[2022-07-19] MEDS: CARVEDILOL 3.125 MG TABLET PO SCH ×2 (10:03→21:00)
[2022-07-19] MEDS ORDERED: LIDOCAINE PF 100MG/5ML (2%) SYRINGE 5ML ONE (15:50)
[2022-07-19] MEDS ORDERED: ROCURONIUM 10MG/1ML SYR 10 MG/ML ML ONE ×2 (15:51→17:12)
[2022-07-19] MEDS ORDERED: PROPOFOL 10 MG/ML 20ML VIAL IV ONE (15:51)
[2022-07-19] MEDS ORDERED: FENTANYL CITRATE PF 50 MCG/1 ML 2ML VIAL ONE ×2 (15:52→17:02)
[2022-07-19] MEDS ORDERED: CEFAZOLIN SODIUM 2 GM VIAL IVPB ONE (16:20)
[2022-07-19] MEDS ORDERED: CEFAZOLIN SODIUM 1 GM VIAL ONE (16:40)
[2022-07-19] MEDS ORDERED: DEXAMETHASONE SOD PHOSPHATE 4 MG/ML 1ML VIAL ONE (16:54)
[2022-07-19] MEDS ORDERED: ONDANSETRON 4MG INJ ONE (16:54)
[2022-07-19] MEDS ORDERED: ROPIVACAINE 0.5% 5MG/ML 30ML IJ ONE (18:16)
[2022-07-19] MEDS ORDERED: GLYCOPYRROLATE 1 MG/5 ML SYRINGE ONE (18:18)
[2022-07-19] MEDS ORDERED: NEOSTIGMINE 5MG/5ML SYR IV ONE (18:18)
[2022-07-19] MEDS ORDERED: IPRATROPIUM/ALBUTEROL SULFATE 3 ML SOLUTION IH ONE (20:00)
[2022-07-19] MEDS: PRAZOSIN HCL 2 MG PO SCH (21:00)
[2022-07-19] MEDS: ATORVASTATIN 40 MG TABLET PO SCH (21:00)
[2022-07-19] MEDS: MONTELUKAST SODIUM 10 MG TAB PO SCH (21:00)
[2022-07-19] MEDS ORDERED: MORPHINE 4 MG SYG IVP PRN (22:30)
[2022-07-19] MEDS ORDERED: HYDROCODONE/ACETAMINOPHEN 5/325 MG TAB PO PRN (22:30)
[2022-07-19] MEDS: ALBUTEROL 0.083% 2.5 MG/3 ML INH IH SCH (23:40)
[2022-07-19] MEDS: IPRATROPIUM 0.5 MG/2.5 ML INH IH SCH (23:40)
[2022-07-20] VITALS (7 sets, daily range): BP systolic 121–146; BP diastolic 70–79
[2022-07-20 05:29] LABS: HEMATOCRIT 34.1 % (42-54); MEAN CORPUSCULAR HEMOGLOBIN 30.5 pg (27.0-33.0); MEAN CORPUSCULAR VOLUME 95.5 fL (79-99); RED BLOOD CELL COUNT(AUTO) 3.57 MIL/uL (4.50-6.20); RED CELL DISTRIBUTION WIDTH 14.8 % (11.0-15.5); WHITE BLOOD COUNT (AUTO) 13.4 K/uL (4.8-10.8)
[2022-07-20 05:40] LABS: CREATININE 1.1 mg/dL (0.5-1.5); POTASSIUM 4.2 mmol/L (3.5-5.1)
[2022-07-20] MEDS: LEVOTHYROXINE 50 MCG TABLET PO SCH (05:46)
[2022-07-20] MEDS: ALBUTEROL 0.083% 2.5 MG/3 ML INH IH SCH ×3 (06:28→23:03)
[2022-07-20] MEDS: IPRATROPIUM 0.5 MG/2.5 ML INH IH SCH ×4 (06:28→23:03)
[2022-07-20] MEDS: FAMOTIDINE 20MG VIAL IV SCH (08:50)
[2022-07-20] MEDS: AMIODARONE 200 MG TABLET PO SCH (08:50)
[2022-07-20] MEDS: CA 600MG+VIT D 400 UNIT TAB 1 TAB TABLET PO SCH (08:50)
[2022-07-20] MEDS: DOCUSATE SODIUM 100 MG CAP PO SCH ×2 (08:51→20:11)
[2022-07-20] MEDS: TORSEMIDE 20 MG TAB PO SCH (08:51)
[2022-07-20] MEDS: MULTIVITAMIN TABLET PO SCH (08:51)
[2022-07-20] MEDS: DULOXETINE HCL 30 MG CAP PO SCH (08:51)
[2022-07-20] MEDS: CARVEDILOL 3.125 MG TABLET PO SCH ×2 (08:51→20:09)
[2022-07-20] MEDS: PRAZOSIN HCL 2 MG PO SCH (20:02)
[2022-07-20] MEDS: ATORVASTATIN 40 MG TABLET PO SCH (20:09)
[2022-07-20] MEDS: APIXABAN 5 MG TABLET PO SCH (20:09)
[2022-07-20] MEDS: MONTELUKAST SODIUM 10 MG TAB PO SCH (20:10)
[2022-07-21] VITALS: BP 142/71
[2022-07-21 04:00] VITALS: BP 138/72
[2022-07-21 05:07] LABS: HEMATOCRIT 31.3 % (42-54); MEAN CORPUSCULAR HEMOGLOBIN 30.2 pg (27.0-33.0); MEAN CORPUSCULAR HGB CONC 32.6 g/dL (32.0-36.0); MEAN CORPUSCULAR VOLUME 92.6 fL (79-99); RED BLOOD CELL COUNT(AUTO) 3.38 MIL/uL (4.50-6.20); RED CELL DISTRIBUTION WIDTH 15.2 % (11.0-15.5); WHITE BLOOD COUNT (AUTO) 11.4 K/uL (4.8-10.8)
[2022-07-21 05:20] LABS: CREATININE 1.2 mg/dL (0.5-1.5); POTASSIUM 3.7 mmol/L (3.5-5.1)
[2022-07-21] MEDS: IPRATROPIUM 0.5 MG/2.5 ML INH IH SCH ×4 (06:29→23:26)
[2022-07-21] MEDS: ALBUTEROL 0.083% 2.5 MG/3 ML INH IH SCH ×4 (06:29→23:26)
[2022-07-21] MEDS: LEVOTHYROXINE 50 MCG TABLET PO SCH (07:56)
[2022-07-21 08:00] VITALS: BP 140/78
[2022-07-21] MEDS: AMIODARONE 200 MG TABLET PO SCH (08:40)
[2022-07-21] MEDS: FAMOTIDINE 20MG VIAL IV SCH (08:40)
[2022-07-21] MEDS: DOCUSATE SODIUM 100 MG CAP PO SCH ×3 (08:40→20:02)
[2022-07-21] MEDS: CARVEDILOL 3.125 MG TABLET PO SCH ×2 (08:40→19:58)
[2022-07-21] MEDS: APIXABAN 5 MG TABLET PO SCH ×2 (08:40→19:57)
[2022-07-21] MEDS: TORSEMIDE 20 MG TAB PO SCH (08:40)
[2022-07-21] MEDS: MULTIVITAMIN TABLET PO SCH (08:40)
[2022-07-21] MEDS: DULOXETINE HCL 30 MG CAP PO SCH (08:40)
[2022-07-21] MEDS: CA 600MG+VIT D 400 UNIT TAB 1 TAB TABLET PO SCH (08:41)
[2022-07-21 11:33] VITALS: BP 125/72
[2022-07-21 16:00] VITALS: BP 124/57
[2022-07-21] MEDS: PRAZOSIN HCL 2 MG PO SCH (19:45)
[2022-07-21] MEDS: ATORVASTATIN 40 MG TABLET PO SCH (19:57)
[2022-07-21] MEDS: MONTELUKAST SODIUM 10 MG TAB PO SCH (19:57)
[2022-07-21 20:00] VITALS: BP 129/64
[2022-07-22] VITALS: BP 124/67
[2022-07-22 04:00] VITALS: BP 120/58
[2022-07-22 05:13] LABS: HEMATOCRIT 29.1 % (42-54); MEAN CORPUSCULAR HEMOGLOBIN 30.2 pg (27.0-33.0); MEAN CORPUSCULAR VOLUME 94.5 fL (79-99); RED BLOOD CELL COUNT(AUTO) 3.08 MIL/uL (4.50-6.20); RED CELL DISTRIBUTION WIDTH 14.9 % (11.0-15.5); WHITE BLOOD COUNT (AUTO) 9.2 K/uL (4.8-10.8)
[2022-07-22 05:23] LABS: CREATININE 1.2 mg/dL (0.5-1.5); POTASSIUM 3.2 mmol/L (3.5-5.1)
[2022-07-22] MEDS: ALBUTEROL 0.083% 2.5 MG/3 ML INH IH SCH ×3 (06:46→17:36)
[2022-07-22] MEDS: IPRATROPIUM 0.5 MG/2.5 ML INH IH SCH ×3 (06:46→17:36)
[2022-07-22] MEDS: LEVOTHYROXINE 50 MCG TABLET PO SCH (07:45)
[2022-07-22 08:00] VITALS: BP 121/66
[2022-07-22] MEDS: TORSEMIDE 20 MG TAB PO SCH (09:00)
[2022-07-22] MEDS: DULOXETINE HCL 30 MG CAP PO SCH (09:00)
[2022-07-22] MEDS: APIXABAN 5 MG TABLET PO SCH ×2 (09:01→20:18)
[2022-07-22] MEDS: AMIODARONE 200 MG TABLET PO SCH (09:01)
[2022-07-22] MEDS: DOCUSATE SODIUM 100 MG CAP PO SCH ×2 (09:01→21:00)
[2022-07-22] MEDS: MULTIVITAMIN TABLET PO SCH (09:01)
[2022-07-22] MEDS: CA 600MG+VIT D 400 UNIT TAB 1 TAB TABLET PO SCH (09:02)
[2022-07-22] MEDS: CARVEDILOL 3.125 MG TABLET PO SCH ×2 (09:02→20:18)
[2022-07-22] MEDS: FAMOTIDINE 20MG VIAL IV SCH (09:02)
[2022-07-22 11:37] VITALS: BP 107/62
[2022-07-22 16:00] VITALS: BP 100/57
[2022-07-22] MEDS: MONTELUKAST SODIUM 10 MG TAB PO SCH (20:18)
[2022-07-22] MEDS: PRAZOSIN HCL 2 MG PO SCH (20:19)
[2022-07-22] MEDS: ATORVASTATIN 40 MG TABLET PO SCH (20:19)
[2022-07-22 20:34] VITALS: BP 110/60
[2022-07-23] VITALS (7 sets, daily range): BP systolic 112–139; BP diastolic 63–80
[2022-07-23] MEDS: IPRATROPIUM 0.5 MG/2.5 ML INH IH SCH ×4 (03:20→19:24)
[2022-07-23] MEDS: ALBUTEROL 0.083% 2.5 MG/3 ML INH IH SCH ×4 (03:20→19:24)
[2022-07-23] MEDS: LEVOTHYROXINE 50 MCG TABLET PO SCH (06:34)
[2022-07-23] MEDS: DULOXETINE HCL 30 MG CAP PO SCH (08:53)
[2022-07-23] MEDS: TORSEMIDE 20 MG TAB PO SCH (08:54)
[2022-07-23] MEDS: APIXABAN 5 MG TABLET PO SCH ×2 (08:54→20:48)
[2022-07-23] MEDS: MULTIVITAMIN TABLET PO SCH (08:54)
[2022-07-23] MEDS: AMIODARONE 200 MG TABLET PO SCH (08:54)
[2022-07-23] MEDS: DOCUSATE SODIUM 100 MG CAP PO SCH ×2 (08:54→20:51)
[2022-07-23] MEDS: CARVEDILOL 3.125 MG TABLET PO SCH ×2 (08:55→20:47)
[2022-07-23] MEDS: CA 600MG+VIT D 400 UNIT TAB 1 TAB TABLET PO SCH (08:56)
[2022-07-23] MEDS: FAMOTIDINE 20MG VIAL IV SCH (08:56)
[2022-07-23] MEDS: ATORVASTATIN 40 MG TABLET PO SCH (20:48)
[2022-07-23] MEDS: MONTELUKAST SODIUM 10 MG TAB PO SCH (20:48)
[2022-07-23] MEDS: PRAZOSIN HCL 2 MG PO SCH (20:49)
[2022-07-24] MEDS: IPRATROPIUM 0.5 MG/2.5 ML INH IH SCH ×3 (00:13→12:20)
[2022-07-24] MEDS: ALBUTEROL 0.083% 2.5 MG/3 ML INH IH SCH ×3 (00:13→12:20)
[2022-07-24 04:48] VITALS: BP 124/79
[2022-07-24 08:06] VITALS: BP 138/76
[2022-07-24] MEDS: TORSEMIDE 20 MG TAB PO SCH (08:32)
[2022-07-24] MEDS: DULOXETINE HCL 30 MG CAP PO SCH (08:32)
[2022-07-24] MEDS: AMIODARONE 200 MG TABLET PO SCH (08:32)
[2022-07-24] MEDS: CARVEDILOL 3.125 MG TABLET PO SCH (08:32)
[2022-07-24] MEDS: APIXABAN 5 MG TABLET PO SCH (08:33)
[2022-07-24] MEDS: DOCUSATE SODIUM 100 MG CAP PO SCH (08:33)
[2022-07-24] MEDS: FAMOTIDINE 20MG VIAL IV SCH (08:33)
[2022-07-24] MEDS: MULTIVITAMIN TABLET PO SCH (08:34)
[2022-07-24] MEDS: CA 600MG+VIT D 400 UNIT TAB 1 TAB TABLET PO SCH (08:34)
[2022-07-24 11:49] VITALS: BP 118/68
[2022-07-24 12:42] LABS: HEMATOCRIT 31.4 % (42-54); MEAN CORPUSCULAR HEMOGLOBIN 30.1 pg (27.0-33.0); MEAN CORPUSCULAR HGB CONC 32.5 g/dL (32.0-36.0); MEAN CORPUSCULAR VOLUME 92.6 fL (79-99); RED BLOOD CELL COUNT(AUTO) 3.39 MIL/uL (4.50-6.20); RED CELL DISTRIBUTION WIDTH 14.6 % (11.0-15.5); WHITE BLOOD COUNT (AUTO) 8.6 K/uL (4.8-10.8)
[2022-07-24 12:53] LABS: CREATININE 1.1 mg/dL (0.5-1.5); MAGNESIUM 2.1 mg/dL (1.80-2.40); POTASSIUM 3.5 mmol/L (3.5-5.1)
[2022-07-24 16:00] VITALS: BP 132/79
[2022-07-25] MEDS ORDERED: LEVOTHYROXINE 50 MCG TABLET PO SCH (06:30)
== END 2022-07-24 18:15 | DRG 522 ==
LOC: EDH 16:42 → EDHIP 18:21 → 4AH 23:22
PROVIDERS: ADMIT Hospitalist; ATTEND Hospitalist
PROC: 0SRR0JA Replacement of Right Hip Joint, Femoral Surface with Synthetic Substitute, Uncemented, Open Approach (ICD-10-PCS; principal; 2022-07-20)
DX: S72.001A Fracture of unspecified part of neck of right femur, initial encounter for closed fracture (principal); I42.9 Cardiomyopathy, unspecified; I50.22 Chronic systolic (congestive) heart failure; D68.69 Other thrombophilia; I48.0 Paroxysmal atrial fibrillation; J44.9 Chronic obstructive pulmonary disease, unspecified; I11.0 Hypertensive heart disease with heart failure; I25.10 Atherosclerotic heart disease of native coronary artery without angina pectoris; K59.00 Constipation, unspecified; E03.9 Hypothyroidism, unspecified; E78.00 Pure hypercholesterolemia, unspecified; W01.0XXA Fall on same level from slipping, tripping and stumbling without subsequent striking against object, initial encounter; Z20.822 Contact with and (suspected) exposure to COVID-19; Z51.5 Encounter for palliative care; Z79.51 Long term (current) use of inhaled steroids; Z79.82 Long term (current) use of aspirin; Z82.0 Family history of epilepsy and other diseases of the nervous system; Z82.3 Family history of stroke; Z79.01 Long term (current) use of anticoagulants; Z86.73 Personal history of transient ischemic attack (TIA), and cerebral infarction without residual deficits; Z82.49 Family history of ischemic heart disease and other diseases of the circulatory system; Z82.5 Family history of asthma and other chronic lower respiratory diseases; Z83.3 Family history of diabetes mellitus; Z86.74 Personal history of sudden cardiac arrest; Z87.19 Personal history of other diseases of the digestive system; Y93.89 Activity, other specified; Y92.89 Other specified places as the place of occurrence of the external cause
CPT/HCPCS: 36415; 71045; 72170; 73501; 73502; 80048; 80053; 81001; 83735; 83880; 84100; 84443; 85025; 85027; 85610; 85730; 86850; 86900; 86901; 87040; 87635; 94640; 94664; 96374; 96375; 97039; G0378; J0690; J1100; J1170; J2001; J2405; J2704; J2710; J2795; J3010; J3490; J7120

== ENCOUNTER → 2022-11-08 | Outpatient (CLI) | payer MEDICARE ==
[~2022-11-08] MED LIST changes: +ACET-66 PO; -AEC81 PO; -ASCO500C18 PO; -BUDE10.22 IH; -CYCL5TAB PO; +DOCU100C33 PO; -FEXO180T94 PO; -LEVO25TA54 PO; -MELA5TAB14 PO; -MIDO5TAB4 PO; +MONT-47 PO; -MONT10TA21 PO; -PANT40TA54 PO; -POTA-192 PO; -TIOT18CA3 IH
[2022-11-08 12:50] LABS: ALBUMIN 3.5 g/dL (3.5-5.0); CREATININE 1.2 mg/dL (0.5-1.5); MAGNESIUM 2.2 mg/dL (1.80-2.40); POTASSIUM 4.1 mmol/L (3.5-5.1); TOTAL PROTEIN, SERUM 7.3 g/dL (6.0-8.3)
== END | disposition home or self-care (01) ==
LOC: LAB 11:06
PROVIDERS: ATTEND Physician Assistant
DX: I10 Essential (primary) hypertension (principal)
CPT/HCPCS: 36415; 80053; 83735; 83880

== ENCOUNTER → 2022-11-26 | Outpatient (CLI) | payer OTHER ==
[~2022-11-26] MED LIST changes: +REGADENOSON 0.4 MG/5 ML PF SYG IVP ONE
== END | disposition home or self-care (01) ==
LOC: SHCH 08:12
PROVIDERS: ATTEND Internal Medicine Cardiovascular Disease
DX: I11.9 Hypertensive heart disease without heart failure (principal); I48.91 Unspecified atrial fibrillation; R06.02 Shortness of breath; I25.10 Atherosclerotic heart disease of native coronary artery without angina pectoris; Z79.01 Long term (current) use of anticoagulants; Z79.899 Other long term (current) drug therapy; Z95.810 Presence of automatic (implantable) cardiac defibrillator
CPT/HCPCS: 78452; 96374; 93017; J2785; A9500 ×2

== ENCOUNTER 2023-01-23 10:27 | Emergency (ER) | payer MEDICARE, OTHER ==
[~2023-01-23] VITALS: Ht 182.9 cm; Wt 98.9 kg
[~2023-01-23 10:27] MED LIST changes: -REGADENOSON 0.4 MG/5 ML PF SYG IVP ONE
[2023-01-23 11:28] VITALS: BP 129/63; PULSE 72; RESP 16
== END 2023-01-23 13:14 | disposition home or self-care (01) ==
LOC: EDH 10:27
DX: G89.29 Other chronic pain (principal); R51.9 Headache, unspecified; K02.9 Dental caries, unspecified; I50.9 Heart failure, unspecified; Z79.01 Long term (current) use of anticoagulants; Z79.890 Hormone replacement therapy
CPT/HCPCS: 99281

== ENCOUNTER → 2023-02-07 | Outpatient (CLI) | payer MEDICARE, OTHER ==
[2023-02-07 15:26] LABS: BASOPHILS # (AUTO) 0.04 K/uL (0.00-0.20); BASOPHILS % (AUTO) 0.6 % (0.0-5.0); EOSINOPHILS # (AUTO) 0.14 K/uL (0.00-0.70); EOSINOPHILS % (AUTO) 2.1 % (0.0-8.0); HEMATOCRIT 44.3 % (42-54); IMMATURE GRANULOCYTE ABSOLUTE 0.02 K/uL (0-1); LYMPHOCYTES # (AUTO) 1.1 K/uL (1.0-4.8); LYMPHOCYTES % (AUTO) 16.1 % (21.0-51.0); MEAN CORPUSCULAR HEMOGLOBIN 29.5 pg (27.0-33.0); MEAN CORPUSCULAR HGB CONC 31.2 g/dL (32.0-36.0); MEAN CORPUSCULAR VOLUME 94.7 fL (79-99); MONOCYTES # (AUTO) 0.9 K/uL (0.1-1.0); MONOCYTES % (AUTO) 12.8 % (3.0-13.0); NEUTROPHILS # (AUTO) 4.6 K/uL (1.8-7.7); NEUTROPHILS % (AUTO) 68.1 % (40.0-77.0); PLATELET COUNT (AUTO) 155 K/uL (130-400); RED BLOOD CELL COUNT(AUTO) 4.68 MIL/uL (4.50-6.20); RED CELL DISTRIBUTION WIDTH 16.6 % (11.0-15.5); WHITE BLOOD COUNT (AUTO) 6.8 K/uL (4.8-10.8)
[2023-02-07 15:49] LABS: CREATININE 1.3 mg/dL (0.5-1.5); MAGNESIUM 2.1 mg/dL (1.80-2.40); POTASSIUM 4.6 mmol/L (3.5-5.1); THYROID STIMULATING HORMONE 4.1 uIU/mL (0.36-3.74)
== END | disposition home or self-care (01) ==
LOC: LAB 13:25
PROVIDERS: ATTEND Internal Medicine Cardiovascular Disease
DX: I49.01 Ventricular fibrillation (principal); E78.5 Hyperlipidemia, unspecified; I10 Essential (primary) hypertension; I48.0 Paroxysmal atrial fibrillation; Z95.810 Presence of automatic (implantable) cardiac defibrillator; Z79.899 Other long term (current) drug therapy; Z79.82 Long term (current) use of aspirin; Z79.01 Long term (current) use of anticoagulants
CPT/HCPCS: 36415; 80048; 83735; 84443; 85025

== ENCOUNTER 2023-04-16 15:54 | Emergency (ER) | payer MEDICARE, OTHER ==
[~2023-04-16] VITALS: Ht 182.9 cm; Wt 93.4 kg
[~2023-04-16 15:54] MED LIST changes: +AMOX-426 PO; +ASPI-1443 PO; +FEXO-263 PO; +MAGN400T25 PO; +PANT40TA54 PO; +POTA-202 PO; +PRED20TA3 PO
[2023-04-16 16:35] VITALS: BP 112/73; PULSE 70; RESP 18; O2SAT 92
[2023-04-16 17:20] LABS: HEMATOCRIT 42.9 % (42-54); MEAN CORPUSCULAR HGB CONC 32.4 g/dL (32.0-36.0); MEAN CORPUSCULAR VOLUME 92.5 fL (79-99); RED BLOOD CELL COUNT(AUTO) 4.64 MIL/uL (4.50-6.20); RED CELL DISTRIBUTION WIDTH 15.9 % (11.0-15.5); WHITE BLOOD COUNT (AUTO) 12.7 K/uL (4.8-10.8)
[2023-04-16 17:34] LABS: CARBON DIOXIDE 29 mmol/L (21-32); CHLORIDE 103 mmol/L (101-111); CREATININE 1.5 mg/dL (0.5-1.5); GLOMERULAR FILTR. RATE CALC 47 mL/min (>90); GLUCOSE,RANDOM 116 mg/dL (70-105); POTASSIUM 4.2 mmol/L (3.5-5.1); SODIUM SERUM 136 mmol/L (136-145); UREA NITROGEN, BLOOD 36 mg/dL (7-18)
[2023-04-16 17:47] LABS: ALCOHOL, BLOOD < 3 mg/dL (0-10); THYROID STIMULATING HORMONE 2.24 uIU/mL (0.36-3.74)
[2023-04-16] MEDS ORDERED: CEFTRIAXONE 2GM VIAL IVPB ONE (18:00)
[2023-04-16] MEDS ORDERED: AMOX-427 PO (18:03)
[2023-04-16] MEDS ORDERED: FLUT16H NASAL (18:03)
[2023-04-17] MEDS ORDERED: FLUT16H NASAL (08:46)
[2023-04-17] MEDS ORDERED: AMOX-427 PO (08:46)
== END 2023-04-16 19:05 | disposition home or self-care (01) ==
LOC: EDH 15:54
DX: E86.0 Dehydration (principal); E83.51 Hypocalcemia; J32.9 Chronic sinusitis, unspecified; I25.10 Atherosclerotic heart disease of native coronary artery without angina pectoris; Z79.01 Long term (current) use of anticoagulants; Z79.52 Long term (current) use of systemic steroids; Z79.82 Long term (current) use of aspirin; Z79.890 Hormone replacement therapy; Z79.899 Other long term (current) drug therapy; W18.39XA Other fall on same level, initial encounter; Y93.89 Activity, other specified; Y92.89 Other specified places as the place of occurrence of the external cause; Y99.8 Other external cause status
CPT/HCPCS: 99285; 70450; 96365; 71045; 84443; 83735; 84484; 80048; 85027; 36415; 72170; 72125; 70486; 93005; J0696

== ENCOUNTER 2024-06-02 08:38 | Inpatient (IN) | payer OTHER, MEDICARE ==
[~2024-06-02] VITALS: Ht 182.9 cm; Wt 91.9 kg
[~2024-06-02 08:38] MED LIST changes: -AMOX-426 PO; +ATOR20TA65 PO; -CARV3.12 PO; -CETI10TA57 PO; +CILO100T3 PO; -DOCU100C33 PO; +DULO30CA52 PO; -DULO60CA64 PO; +DUONEB IH; +EMPAGLIFLOZIN PO; +LEVO50TA4 PO; +METO-408 PO; +MONT-39 PO; -POTA-202 PO; -PRED20TA3 PO; +SPIR25TA6 PO; +TEST1.25 TD; -TORS5TAB12 PO; +[UNRECOGNIZED DRUG - CODE] MC
[2024-06-02 09:00] LABS: BASOPHILS # (AUTO) 0.02 K/uL (0.00-0.20); BASOPHILS % (AUTO) 0.2 % (0.0-5.0); IMMATURE GRANULOCYTE ABSOLUTE 0.05 K/uL (0-1); LYMPHOCYTES # (AUTO) 1.1 K/uL (1.0-4.8); LYMPHOCYTES % (AUTO) 8.7 % (21.0-51.0); MEAN CORPUSCULAR HEMOGLOBIN 31.2 pg (27.0-33.0); MEAN CORPUSCULAR HGB CONC 32.4 g/dL (32.0-36.0); MEAN CORPUSCULAR VOLUME 96.3 fL (79-99); MONOCYTES # (AUTO) 1.1 K/uL (0.1-1.0); MONOCYTES % (AUTO) 9.1 % (3.0-13.0); NEUTROPHILS # (AUTO) 10.1 K/uL (1.8-7.7); NEUTROPHILS % (AUTO) 81.6 % (40.0-77.0); PLATELET COUNT (AUTO) 149 K/uL (130-400); RED BLOOD CELL COUNT(AUTO) 4.36 MIL/uL (4.50-6.20); RED CELL DISTRIBUTION WIDTH 14.4 % (11.0-15.5); WHITE BLOOD COUNT (AUTO) 12.4 K/uL (4.8-10.8)
[2024-06-02] MEDS ORDERED: VANCOMYCIN KIT 1 GM/250 ML IV.KIT IV ONE (09:00)
--- NOTE | 2024-06-02 09:18 | ERN ---
General Chief Complaint: Mechanical Fall Stated Complaint: WOUND TO LEFT FOOT, FALL Time Seen by MD: 08:44 Source: patient, family History of Present Illness Initial Comments PATIENT IS A AN 78-YEAR-OLD MALE COMING IN TO BE EVALUATED FOR RIGHT GREAT TOE PAIN. PER PATIENT HE NOTICED THE LESION IN HIS RIGHT GREAT TOE WHICH STARTED EXTENDING UP THE FOOT. HE ALSO NOTICED STREAKING ON A RIGHT LOWER EXTREMITY WHICH HAS A REASON WHY HE CAME IN TO BE EVALUATED. HE DOES HAVE A HISTORY OF NEUROPATHY UNKNOWN REASON. HE WAS NOT A DIABETIC. Allergies: Coded Allergies: No Known Drug Allergies (Unverified Allergy, Unknown, 01/14/14) Home Meds Active Scripts Levothyroxine Sodium (Synthroid 50 Mcg Tab) 50 Mcg Tablet, 50 MCG PO SYN for 30 Days, #30 TAB Prov:WILLIAM CESAR NP 05/03/24 Cilostazol (Cilostazol) 100 Mg Tablet, 100 MG PO DAILY for 30 Days, #30 TAB Prov:WILLIAM CESAR NP 05/03/24 Reported Medications Povidone-Iodine (Povidone Iodine) 100 % Powder, 1 GM MC AD, APPL 04/25/24 [Duoneb] No Conflict Check, 1 UNIT IH Q6HPRN 04/25/24 Spironolactone (Spironolactone) 25 Mg Tablet, 1 TAB PO DAILY for 30 Days, #30 TAB 0 Refills 04/25/24 Metoprolol Succinate (Metoprolol Succinate) 25 Mg Tab.er.24h, 1 TAB PO DAILY for 30 Days, #30 TAB 0 Refills 04/25/24 Montelukast Sodium (Montelukast Sodium) 10 Mg Tablet, 1 TAB PO HS for 30 Days, #30 TAB 0 Refills 04/25/24 Atorvastatin Calcium (Atorvastatin Calcium) 20 Mg Tablet, 1 TAB PO HS for 30 Days, #30 TAB 0 Refills 04/25/24 Duloxetine HCl (Duloxetine HCl) 30 Mg Capsule.dr, 1 CAP PO DAILY for 30 Days, #3 0 CAP 0 Refills 04/25/24 Testosterone (Androgel) 20.25 Mg/1.25 Gram (1.62 %) Gel.packet, 1.25 GM TD AD 04/25/24 [Empaglifozin] No Conflict Check, 12.5 MG PO DAILY 04/25/24 Amiodarone HCl (Amiodarone HCl) 200 Mg Tablet, 1 TAB PO DAILY for 30 Days, #30 TAB 0 Refills 04/25/24 Aspirin (Aspirin EC) 81 Mg Tablet.dr, 81 MG PO DAILY, TAB 04/06/23 Pantoprazole Sodium (Pantoprazole Sodium) 40 Mg Tablet.dr, 40 MG PO DAILY, TAB 04/06/23 Fexofenadine HCl (Fexofenadine HCl) 180 Mg Tablet, 180 MG PO DAILY, TAB 04/06/23 Magnesium Oxide (Mag-Oxide) 400 Mg (241.3 Mg Magnesium) Tablet, 400 MG PO DAILY, TAB 04/06/23 Acetaminophen (Tylenol) 500 Mg Tab, 500 MG PO Q6HPRN PRN for PAIN LEVEL 1 TO 5, TAB 07/17/22 Levothyroxine Sodium (Levothroid/Synthroid) 50 Mcg Tab, 50 MCG PO DAILY, TAB 07/05/18 Prazosin HCl (Prazosin HCl) 1 Mg Capsule, 2 MG PO HS, CAP 07/05/18 Atorvastatin Calcium (LIPITOR) 40 Mg Tablet, 20 MG PO HS, TAB 07/05/18 Montelukast Sodium (Singulair) 10 Mg Tablet, 10 MG PO HS, TAB 07/05/18 Multivitamin (Multi Vitamin Daily) 1 Each Tablet, 1 EACH PO DAILY, TAB 07/03/16 Calcium Carbonate (Calcium Carbonate 600 mg Tab) 600 Mg/Tab Tablet, 600 MG PO DAILY, TAB 03/12/16 Apixaban (Eliquis) 5 Mg Tablet, 5 MG PO BID, TAB 04/18/15 Past Medical History Past Medical History: CAD, Heart Disease, Other Medical History Other: DEFIB, ABLATION Past Surgical History: Other Surgical History Other: RT HIP, SINUS, RT SHOULDER, Family History Family History: Negative Social History Social History: Negative, Lives with family ROS Dictation CONSTITUTIONAL: NO CHILLS, NO FEVER, NO WEAKNESS, NO DIAPHORESIS, NO MALAISE. HEAD/FACE: NO SIGNS OF TRAUMA. EENT: NO EYE PAIN, NO BLURRED VISION, NO TEARING, NO DOUBLE VISION, NO EAR PAIN, NO EAR DISCHARGE, NO NOSE PAIN, NO NASAL CONGESTION, NO THROAT PAIN, NO THROAT SWELLING, NO MOUTH PAIN. RESPIRATORY: NO COUGH, NO ORTHOPNEA, NO SOB, NO STRIDOR, NO WHEEZING. CARDIOVASCULAR: NO CHEST PAIN, NO EDEMA, NO PALPITATIONS, NO SYNCOPE. GASTROINTESTINAL/ABDOMINAL: NO ABDOMINAL PAIN, NO CONSTIPATION, NO DIARRHEA, NO NAUSEA, NO VOMITING. GENITOURINARY: NO ABNORMAL DISCHARGE, NO DYSURIA, NO FREQUENT URINATION, NO HEMATURIA. NO COMPLAINTS OF PAIN IN THE GENITALS. MUSCULOSKELETAL: NO BACK PAIN, NO GOUT, NO JOINT PAIN, NO JOINT SWELLING, NO MUSCLE PAIN, NO MUSCLE STIFFNESS, NO NECK PAIN. INTEGUMENTARY: CHANGE IN COLOR, CHANGE IN HAIR/NAILS, NO DRYNESS, NO LESION, NO LUMPS, NO RASH. NEUROLOGICAL/PSYCH: NO ANXIETY, NOT DEPRESSED, NO EMOTIONAL PROBLEM, NO HEADACHE, NO NUMBNESS, NO PRE-EXISTING DEFICIT, NO HISTORY OF SEIZURES, NO TREMORS, NO WEAKNESS. HEMATOLOGIC/LYMPHATIC: NOT ANEMIC, NO HISTORY OF BLOOD CLOTS, NO APPARENT BLEEDING, NO BRUISING, GLANDS NOT SWOLLEN. ALL SYSTEMS NEGATIVE, EXCEPT NOTED. Physical Exam Physical Exam Dictation VITAL SIGNS: REVIEWED. GENERAL APPEARANCE: ALERT, ORIENTED X3, NO ACUTE DISTRESS, OBESE. HEAD AND FACE: NON-TRAUMATIC. EYES: PERRL, PINK CONJUNCTIVAS, EYELID NO TRAUMA, ANTERIOR CHAMBER CLEAR. EARS: PINNAS INTACT AND NO SIGNS OF TRAUMA OR ERYTHEMA. EAR CANALS CLEAR AND NO DISCHARGE. TMS NO ERYTHEMA. NOSE: NO DISCHARGE, NO BLEEDING. OROPHARYNX: MOUTH NORMAL, TEETH NO CARIES, TONGUE PINK. PHARYNX CLEAR, NO ERYTHEMA. TONSILS NO EXUDATES, NO ABSCESSES NOTED. MUCOUS MEMBRANE MOIST. NECK: SUPPLE, NON-TENDER, NO THYROMEGALY, NO MASSES, NO JVD, NO BRUITS. BREAST: DEFERRED. CHEST: NO TENDERNESS, NO CREPITUS, NO PARADOXICAL MOVEMENT, NO RETRACTIONS. LUNGS: CLEAR, WELL-VENTILATED, SYMMETRIC, NO RALES, NO WHEEZING, NO RHONCHI, NO STRIDOR, GOOD BREATH SOUNDS BILATERALLY. HEART: REGULAR RATE, REGULAR RHYTHM, NO MURMUR, NO GALLOPS. VASCULAR: NO PERIPHERAL EDEMA. ABDOMEN: SOFT, POSITIVE BOWEL SOUNDS, NONDISTENDED, NO GUARDING, NONTENDER, NO REBOUND, NO MASSES NO HEPATOMEGALY, NO SPLENOMEGALY, NO IQBAL'S SIGN, NO HERNIAS. RECTAL: DEFERRED. GENITAL: DEFERRED. NEUROLOGICAL: NORMAL SPEECH, GROSS MOTOR FUNCTION INTACT, GROSS SENSORY FUNCTION INTACT. MUSCULOSKELETAL: NECK NONTENDER, FULL RANGE OF MOTION, BACK NONTENDER, FULL RANGE OF MOTION. EXTREMITIES: NONTENDER, FULL RANGE OF MOTION. SKIN: COLOR ERYTHEMATOUS STREAKS RIGHT LOWER EXTREMITY, DRY, NO TURGOR, RASH, NO LACERATIONS, NO ABRASIONS, NO CONTUSIONS. LYMPHATICS: DEFERRED. Results Laboratory and Microbiology Lab and Micro Result Laboratory Tests Test 06/02/24 08:53 White Blood Count 12.4 K/uL (4.8-10.8) H Red Blood Count 4.36 MIL/uL (4.50-6.20) L Hemoglobin 13.6 g/dL (14.0-18.0) L Hematocrit 42.0 % (42-54) Mean Corpuscular Volume 96.3 fL (79-99) Mean Corpuscular Hemoglobin 31.2 pg (27.0-33.0) Mean Corpuscular Hemoglobin Concent 32.4 g/dL (32.0-36.0) Red Cell Distribution Width 14.4 % (11.0-15.5) Platelet Count 149 K/uL (130-400) Mean Platelet Volume 10.4 fL (7.5-10.5) Immature Granulocyte % (Auto) 0.4 % (0-1) Neutrophils (%) (Auto) 81.6 % (40.0-77.0) H Lymphocytes (%) (Auto) 8.7 % (21.0-51.0) L Monocytes (%) (Auto) 9.1 % (3.0-13.0) Eosinophils (%) (Auto) 0.0 % (0.0-8.0) Basophils (%) (Auto) 0.2 % (0.0-5.0) Neutrophils # (Auto) 10.1 K/uL (1.8-7.7) H Lymphocytes # (Auto) 1.1 K/uL (1.0-4.8) Monocytes # (Auto) 1.1 K/uL (0.1-1.0) H Eosinophils # (Auto) 0.00 K/uL (0.00-0.70) Basophils # (Auto) 0.02 K/uL (0.00-0.20) Absolute Immature Granulocyte (auto 0.05 K/uL (0-1) Nucleated Red Blood Cells 0.0 % (0.0-0.19) Erythrocyte Sedimentation Rate 28 MM/HR (0-20) H Sodium Level 141 mmol/L (136-145) Potassium Level 4.2 mmol/L (3.5-5.1) Chloride Level 106 mmol/L (101-111) Carbon Dioxide Level 26 mmol/L (21-32) Blood Urea Nitrogen 29 mg/dL (7-18) H Creatinine 1.4 mg/dL (0.5-1.3) H Glomerular Filtration Rate Calc 51 mL/min (>90) Random Glucose 122 mg/dL (70-105) H Total Calcium 8.4 mg/dL (8.5-10.1) L Labs Reviewed?: Yes EKG/XRAY/US/CT/MRI X-RAY Comment X-RAY RIGHT GREAT TOE-MILD PERIOSTEAL ELEVATION Ultrasound Comment ULTRASOUND VENOUS-NEGATIVE DVT MDM MDM: DIFFERENTIAL DIAGNOSIS: THROMBOPHLEBITIS OF THE RIGHT LEG, OSTEOMYELITIS, CELLULITIS, SEPSIS RATIONALE: TESTS CONSIDERED AND ORDERED SECONDARY TO SHARED DECISION MAKING INCLUDE: LABS, ECG AND RADIOLOGY PREVIOUS OUTSIDE RECORDS REVIEWED: OLD ER VISITS. RISK OF COMPLICATION AND/OR MORBIDITY OR MORTALITY OF PATIENT MANAGEMENT: NONE MEDICATIONS-PER MEDICATION RECONCILIATION NEED FOR HOSPITALIZATION: PATIENT DOES MEET CRITERIA FOR HOSPITALIZATION. NEED FOR EMERGENCY MAJOR/MINOR SURGERY: NO THERE ARE NO SOCIAL CONCERNS WITH THIS PATIENT. PRESCRIPTION DRUG MANAGEMENT PRESCRIPTIONS WILL INCLUDE SYMPTOMATIC CARE PATIENT'S PRIOR EXTERNAL MEDICAL RECORDS FROM OTHER ER VISITS WERE REVIEWED BY ME INDICATED. PRIOR TESTING AND RESULTS FROM PREVIOUS VISITS WERE REVIEWED. PRIOR TESTS WERE TAKEN INTO ACCOUNT WITH MEDICAL DECISION MAKING AND RESOURCE UTILIZATION, INDEPENDENT HISTORIAN/HISTORIANS WERE USED TO OBTAIN COMPLETE MEDICAL HISTORY. I INDEPENDENTLY INTERPRETED THE TEST THAT WERE PERFORMED, RESULTS WERE REVIEWED BY ME AND CONSIDERED FINDINGS ON RADIOLOGY IF ORDERED. MEDICAL MANAGEMENT AND EXAMINATION INTERPRETATION DISCUSSIONS WERE HAD BY ME WITH OTHER QUALIFIED HEALTHCARE PROFESSIONALS INDICATED FOR THE PATIENT'S CARE. PATIENT WILL BE ADMITTED UNDER THE CARE OF HOSPITALIST GROUP FOR ONGOING MANAGEMENT OF CELLULITIS, THROMBOPHLEBITIS, POSSIBLE OSTEOMYELITIS. ED Course Orders Procedure Category Date Status Time Cbc With Differential LAB 06/02/24 In Process 08:47 Basic Metabolic Panel LAB 06/02/24 Complete 08:47 Erythrocyte LAB 06/02/24 In Process Sedimentation Rate 08:47 Aerobic Culture SHANDRA 06/02/24 In Process 08:57 Anaerobic Culture SHANDRA 06/02/24 In Process 08:57 Vancomycin 1g/250ml PHA 06/02/24 Complete Kit (Vancomycin 1g/2 09:00 Vancomycin Protocol PHA 06/02/24 In Process (Vancomycin Protocol 09:00 Blood Cult SHANDRA 06/02/24 In Process 08:57 Zosyn 3.375gm+Ns 50ml PHA 06/02/24 Complete (Zosyn 3.375gm+Ns 09:00 Toe(S) 2+Vws Rt RAD 06/02/24 Resulted 08:57 Vancomycin 2gm/500 Ml PHA 06/02/24 In Process Bag (Vancomycin 2g 10:00 Us Venous Doppler US 06/02/24 Taken Unilateral 09:14 Vancomycin 1.25 PHA 06/03/24 In Process Gm/250 Ml Bag 10:00 Vancomycin Trough LAB 06/05/24 Verified 09:00 Current Medications Medications (Trade) Dose Ordered Sig/Kika Route PRN Reason Start Time Stop Time Status Last Admin Dose Admin Piperacillin Sod/ Tazobactam Sod (Zosyn 3.375gm+NS 50ml) 3.375 gm ONCE ONCE IV 06/02/24 09:00 06/02/24 09:06 DC 06/02/24 09:21 Vancomycin HCl 250 ml @ 125 mls/hr Q24H IV 06/03/24 10:00 06/13/24 09:59 Vancomycin HCl 500 ml @ 250 mls/hr ONCE ONCE IV 06/02/24 10:00 06/02/24 11:59 06/02/24 09:38 Vancomycin HCl (Vancomycin Protocol) 1 each AD IV 06/02/24 09:00 06/16/24 08:59 Vancomycin HCl (Vancomycin 1g/ 250ml Kit) 1 gm ONCE ONCE IV 06/02/24 09:00 06/02/24 09:07 DC Vital Signs Date Time Temp Pulse Resp B/P (MAP) Pulse Ox O2 Delivery O2 Flow Rate FiO2 06/02/24 08:55 98.1 82 16 128/68 96 Room Air* 0 21 06/02/24 08:40 98.1 82 16 126/68 96 Room Air 0 DX & DISP Disposition: Inpatient Decision to Admit Time: 10:12 Departure Impression: Primary Impression: Thrombophlebitis Additional Impressions: Sepsis, Osteomyelitis of great toe of right foot Condition: Stable Referrals: SILVANO BRAUN MD (PCP) BERRY GARCIA MD Jun 02, 2024 09:18
[2024-06-02] MEDS: ZOSYN 3.375GM +NS 50ML IV ONE (09:21)
[2024-06-02 09:23] LABS: CREATININE 1.4 mg/dL (0.5-1.3); POTASSIUM 4.2 mmol/L (3.5-5.1)
[2024-06-02] MEDS: VANCOMYCIN PROTOCOL PER PHARMACY IV SCH (09:38)
[2024-06-02] MEDS: VANCOMYCIN 2GM/500 ML BAG 500 ML IV ONE (09:38)
[2024-06-02 10:08] LABS: ERYTHROCYTE SEDIMENTATION RATE 28 MM/HR (0-20)
--- NOTE | 2024-06-02 10:10 | HMCIMG ---
TOE(S) 2+VWS RT REASON: RULE OUT OSTEO TECHNIQUE: 3 views were obtained. FINDINGS: There is no evidence of fracture or dislocation. There is no joint effusion. The soft tissues appear unremarkable. There is no evidence of a radiopaque foreign body. There are some degenerative changes in the tarsal metatarsal joints, moderate in degree. There is no evidence of osteomyelitis. IMPRESSION: 1. No evidence of osteomyelitis, no acute finding.
--- NOTE | 2024-06-02 10:19 | HMCIMG ---
US VENOUS DOPPLER UNILATERAL REASON: RL EXT COMPARISON: None Technique: Right venous doppler ultrasound was performed with spectral analysis and color flow imaging technique. FINDINGS: There is a normal appearance of the common femoral, deep femoral, the profunda femoris and popliteal veins. Proximal calf veins appear normal as well. There is normal response to compression and augmentation. There is no evidence of deep venous thrombosis. IMPRESSION: Normal right lower extremity venous Doppler ultrasound.
[2024-06-02 10:48] LABS: ALBUMIN 2.9 g/dL (3.5-5.0); BILIRUBIN,DIRECT 0.2 mg/dL (0.0-0.3); TOTAL PROTEIN, SERUM 6.7 g/dL (6.0-8.3)
[2024-06-02] MEDS ORDERED: MAGNESIUM 2GM PREMIX 50ML 50 ML IV SCH (11:00)
[2024-06-02] MEDS ORDERED: CALC1CAP22 PO (11:01)
[2024-06-02] MEDS ORDERED: TORS10TA18 PO (11:01)
[2024-06-02 11:02] LABS: INR 1.12 (0.85-1.15)
[2024-06-02 11:04] LABS: PARTIAL THROMBOPLASTIN TIME 33.6 SEC (26.3-35.5)
--- NOTE | 2024-06-02 11:24 | HP ---
[facility] HISTORY AND PHYSICAL Date of Service: Jun 02, 2024 Time of Service: 11:14 HISTORY OF PRESENT ILLNESS: Date of service: 06/02/2024, patient was seen in ER room 10 78-year-old male with underlying history of hypertension, hyperlipidemia, history of COPD, coronary artery disease, underlying history of cardiomyopathy w/LVEF 35-40% , who presented to the ER for further evaluation of redness and swelling involving the 1st toe of the right foot along with progressive erythema extending from the foot to the right leg. Daughter is present at bedside who assisted with further history, patient earlier in the morning had a fall where he landed on his hip. Denies syncopal episode or denies hitting his head or any head injuries. Patient states that he has been feeling weak and daughter noticed that right 1st toe was significantly red, swollen with concerns for blister. Patient denies any focal weakness of upper or lower extremities. Was recently hospitalized in [facility] and discharged on 05/03/2024 where he was found to have gangrene of the 2nd toe of the left foot and underwent amputation of the left 2nd toe by Dr. Christianson. Myesha ent states that he has been healing well from the surgery involving the left toe. His last fall was about 3-4 months ago in daughter denies any previous history of stroke or head injury previously. On presentation to the hospital, patient was noted to be afebrile with T-max of 98.1 F, heart rate of 82, blood pressure of 126/68. [place] [address], hemoglobin of 13.6, platelet count of 244661. CMP remarkable for sodium of 141, potassium 4.2, BUN of 29, creatinine of 1.4, lactic acid of 1.3, CRP of 88. X-ray of the toe showed no evidence of osteomyelitis. Patient underwent venous Doppler Doppler of the lower extremity which showed no evidence of DVT. Patient will be admitted for further management of developing complicated a scending cellulitis involving the right great toe progressing to the foot and right leg. Patient will receive broad-spectrum antibiotics with vanc and cefepime. Given underlying history of cardiomyopathy and CKD, we will be conservative with IV fluids and monitor volume status closely. Consultation with Podiatry and Infectious Disease will be requested. We will have Physical therapy evaluate this patient tomorrow. REVIEW OF SYSTEMS CONSTITUTIONAL: Fatigue, malaise, asthenia NEUROLOGICAL: Denies headache, amaurosis fugax, motor weakness, sensory deficit, vertigo/spinning sensation, gait abnormalities, or tremors. ENT: No hearing loss, otalgia, otorrhea, rhinitis, rhinorrhea, hoarseness, or sore throat. CARDIOVASCULAR: Denies any exertional angina, dyspnea on exertion, orthopnea, paroxysmal nocturnal dyspnea, palpitations, life-threatening arrhythmias, claudication. PULMONARY: Denies any shortness of breath, cough, phlegm/sputum, hemoptysis, pleuritic chest pain. SLEEP: Denies morning headaches, daytime somnolence or napping. Denies difficulty falling asleep, staying asleep, waking from sleep. Denies knowledge of snoring. GASTROINTESTINAL: Denies any type of dysphagia to either liquids or solids. Denies nausea, vomiting, pyrosis, early satiety, abdominal pain, diarrhea, constipation, or changes in stool consistency or caliber. Denies coffee-ground emesis, hematemesis, hematochezia, or melanotic stools. GENITOURINARY: Denies frequency, urgency, nocturia, hematuria or incontinence (Storage/Irritative symptoms.) Low urinary stream, straining to void, urinary i ntermittency or hesitancy, splitting of the voiding stream, terminal dribbling. ENDOCRINOLOGIC: Denies polyuria, polydipsia, polyphagia or heat/cold intolerances. HEMATOLOGIC: Denies thrombophilia/previous clots, or coagulopathy/bleeding disorders. ONCOLOGIC: Denies personal history of malignancy. DERMATOLOGIC: Redness of the 1st great toe with swelling and erythema and streaking involving the right foot and leg PSYCHIATRIC: Denies any suicidal or homicidal ideation. Denies hallucinations. PAST MEDICAL HISTORY: History of atrial fibrillation, COPD CKD stage IIIA, obstructive sleep apnea, PAD, history of chronic anticoagulation with Eliquis as outpatient PAST SURGICAL HISTORY: Recent history of amputation of the 2nd toe of the left foot on 04/2024 secondary to gangrene and osteomyelitis by Dr. Christianson, history of ICD placement, history of previous ablation PAST SOCIAL HISTORY: Currently denies active smoking or alcohol consumption, resides with and daughter at home, uses a walker to ambulate FAMILY HISTORY: Denies pertinent family history Allergies: Denies any known drug allergies Medications: Family will be bringing home medication list to be reconciled and updated, patient reports being on metoprolol, amiodarone, Eliquis Coded Allergies: No Known Drug Allergies (Unverified Allergy, Unknown, 01/14/14) PHYSICAL EXAM GENERAL APPEARANCE: The patient is awake, alert, and oriented, in no acute cardiopulmonary distress. NEUROLOGICAL: Cranial nerves II-XII grossly intact. Motor is 5/5 in bilateral upper and lower extremities proximal to distal. No sensory deficits. HEENT: Face is symmetric. Pupils are equal and reactive. Extraocular movements are intact. NECK: Supple. No JVD. No thyromegaly. No submental, submandibular, pre-/postauricular, occipital or supraclavicular lymphadenopathy. CHEST: Normal chest expansion. No Telemetry. LUNGS: Minimal crackles noted of bilateral lung bases CARDIOVASCULAR: Regular. S1 and S2 normal. No appreciable rubs, murmurs or gallops. ABDOMEN: Soft, nontender, and nondistended. There is no rebound, voluntary guarding, or rigidity. : Deferred. No King. EXTREMITIES: The great toe of the right foot is tender, swollen, with macera tion noted of the skin, erythema is involving the right foot and extending into the legs SKIN: No skin breakdown. Vital Sign (Last 24 Hours) 06/02/24 08:55 Temp 98.1 Pulse 82 Resp 16 B/P (MAP) 128/68 Pulse Ox 96 O2 Delivery Room Air* O2 Flow Rate 0 FiO2 21 LABS: Laboratory: Test 06/02/24 10:40 06/02/24 09:10 06/02/24 08:53 Range/Units Prothrombin Time 12.0 H 9.6-11.6 SEC Prothromb Time International Ratio 1.12 0.85-1.15 Activated Partial Thromboplast Time 33.6 26.3-35.5 SEC Lactic Acid Level 1.3 0.8-2.5 mmol/L Magnesium Level 2.20 1.80-2.40 mg/dL Total Bilirubin 1.0 0.2-1.0 mg/dL Direct Bilirubin 0.2 0.0-0.3 mg/dL Aspartate Amino Transf (AST/SGOT) 21 10-37 U/L Alanine Aminotransferase (ALT/SGPT) 16 12-78 U/L Alkaline Phosphatase 100 50-136 U/L C-Reactive Protein, Quantitative 87.70 H 0.5-3.0 mg/L Total Protein 6.7 6.0-8.3 g/dL Albumin 2.9 L 3.5-5.0 g/dL Procalcitonin 0.14 0.05-0.5 ng/mL White Blood Count 12.4 H 4.8-10.8 K/uL Red Blood Count 4.36 L 4.50-6.20 MIL/uL Hemoglobin 13.6 L 14.0-18.0 g/dL Hematocrit 42.0 42-54 % Mean Corpuscular Volume 96.3 79-99 fL Mean Corpuscular Hemoglobin 31.2 27.0-33.0 pg Mean Corpuscular Hemoglobin Concent 32.4 32.0-36.0 g/dL Red Cell Distribution Width 14.4 11.0-15.5 % Platelet Count 149 130-400 K/uL Mean Platelet Volume 10.4 7.5-10.5 fL Immature Granulocyte % (Auto) 0.4 0-1 % Neutrophils (%) (Auto) 81.6 H 40.0-77.0 % Lymphocytes (%) (Auto) 8.7 L 21.0-51.0 % Monocytes (%) (Auto) 9.1 3.0-13.0 % Eosinophils (%) (Auto) 0.0 0.0-8.0 % Basophils (%) (Auto) 0.2 0.0-5.0 % Neutrophils # (Auto) 10.1 H 1.8-7.7 K/uL Lymphocytes # (Auto) 1.1 1.0-4.8 K/uL Monocytes # (Auto) 1.1 H 0.1-1.0 K/uL Eosinophils # (Auto) 0.00 0.00-0.70 K/uL Basophils # (Auto) 0.02 0.00-0.20 K/uL Absolute Immature Granulocyte (auto 0.05 0-1 K/uL Nucleated Red Blood Cells 0.0 0.0-0.19 % White Cell Morphology Comment See comments Erythrocyte Sedimentation Rate 28 H 0-20 MM/HR Sodium Level 141 136-145 mmol/L Potassium Level 4.2 3.5-5.1 mmol/L Chloride Level 106 101-111 mmol/L Carbon Dioxide Level 26 21-32 mmol/L Blood Urea Nitrogen 29 H 7-18 mg/dL Creatinine 1.4 H 0.5-1.3 mg/dL Glomerular Filtration Rate Calc 51 >90 mL/min Random Glucose 122 H 70-105 mg/dL Total Calcium 8.4 L 8.5-10.1 mg/dL Current Medications Medications (Trade) Dose Ordered Sig/Kika Route PRN Reason Start Time Stop Time Status Last Admin Dose Admin Acetaminophen (TYLenol 325MG TAB) 650 mg Q6H PRN PO MILD PAIN (1-3) 06/02/24 10:30 07/02/24 10:29 Amiodarone HCl (pacERONE 200MG) 200 mg Q12H PO 06/02/24 11:00 07/02/24 10:59 Apixaban (EliquIS) 5 mg BID PO 06/02/24 21:00 07/02/24 20:59 Atorvastatin Calcium (LIPItor 20MG) 20 mg HS PO 06/02/24 21:00 07/02/24 20:59 Budesonide (Pulmicort 0.5 Mg/2ml) 0.5 mg Q12H IH 06/02/24 11:30 07/02/24 11:29 Cefepime HCl (MAXipime 2 gm vial) 2 gm DAILY IVPB 06/02/24 14:00 06/12/24 13:59 Duloxetine HCl (CymbALTA 30 mg CAP) 30 mg Q24H PO 06/02/24 11:00 07/02/24 10:59 Insulin Human Regular (humuLIN R 100 UNIT/ML 3ML) INSULIN SLIDING SCAL... ACHS SQ 06/02/24 11:30 07/02/24 11:29 Ipratropium [place] (AtrovENT UD) 0.5 mg Q6H PRN IH SHORTNESS OF BREATH 06/02/24 11:30 07/02/24 11:29 Magnesium Oxide (Mag-Ox) 400 mg DAILY PO 06/03/24 09:00 07/03/24 08:59 Magnesium Sulfate 50 ml @ 0 mls/hr PROTOCOL IV 06/02/24 11:00 07/02/24 10:59 Metoprolol Succinate (TopROL XL) 25 mg Q24H PO 06/02/24 11:00 07/02/24 10:59 Montelukast Sodium (SinguLAIR) 10 mg HS PO 06/02/24 21:00 07/02/24 20:59 Pantoprazole Sodium (PROTonix 40MG TAB) 40 mg DAILY PO 06/03/24 09:00 07/03/24 08:59 Pharmacy Profile Note (Pharmacy Communication) 1 each ONCE MISC 06/02/24 11:00 06/09/24 10:59 Spironolactone (Aldactone 25mg) 25 mg DAILY PO 06/03/24 09:00 07/03/24 08:59 Torsemide (Demadex) 10 mg DAILY PO 06/03/24 09:00 07/03/24 08:59 Vancomycin HCl 250 ml @ 125 mls/hr Q24H IV 06/03/24 10:00 06/13/24 09:59 Vancomycin HCl (Vancomycin Protocol) 1 each AD IV 06/02/24 09:00 06/16/24 08:59 DIAGNOSTICS / RADIOLOGY: SERVICE 0857 REASON: RULE OUT OSTEO ORDERING PHYSICIAN: BERRY GARCIA MD PROCEDURE: TOES RT - TOE(S) 2+VWS RT TOE(S) 2+VWS RT REASON: RULE OUT OSTEO TECHNIQUE: 3 views were obtained. FINDINGS: There is no evidence of fracture or dislocation. There is no joint effusion. The soft tissues appear unremarkable. There is no evidence of a radiopaque foreign body. There are some degenerative changes in the tarsal metatarsal joints, moderate in degree. There is no evidence of osteomyelitis. IMPRESSION: 1. No evidence of osteomyelitis, no acute finding. DICTATED BY: AARON WOODALL MD DATE: 06/02/24 1007 ELECTRONICALLY SIGNED BY: AARON WOODALL MD DATE: 06/02/24 1010 SERVICE 3 REASON: RL EXT ORDERING PHYSICIAN: BERRY GARCIA MD PROCEDURE: VENOUS UNI - US VENOUS DOPPLER UNILATERAL US VENOUS DOPPLER UNILATERAL REASON: RL EXT COMPARISON: None Technique: Right venous doppler ultrasound was performed with spectral analysis and color flow imaging technique. FINDINGS: There is a normal appearance of the common femoral, deep femoral, the profunda femoris and popliteal veins. Proximal calf veins appear normal as well. There is normal response to compression and augmentation. There is no evidence of deep venous thrombosis. IMPRESSION: Normal right lower extremity venous Doppler ultrasound. 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, 04/2024, POA Leukocytosis, POA Recent fall, POA Debility/frailty, POA History of anticoagulation with Eliquis as outpatient, POA Underlying history of atrial fibrillation, POA Underlying history of cardiomyopathy with LV EF of 35-40%, POA CKD stage IIIA, POA Hypertension, POA Hyperlipidemia, POA Octogenarian, POA PLAN: Patient will be admitted to medical-surgical floor under telemetry monitoring Patient will receive broad-spectrum antibiotics with IV vancomycin/cefepime, renally dosed Consultation with Podiatry and Infectious Disease will be requested, monitor closely for further progression of cellulitis, previous cultures from 2nd toe on last hospitalization showed Pseudomonas Follow up blood cultures, continue with local wound care of the great toe of the right foot per recommendations by Podiatry All home medications will be reconciled and updated, patient to continue with home dose of amiodarone, metoprolol succinate, Eliquis, spironolactone, torsemide We will have Physical therapy evaluate patient tomorrow, patient denies hitting his head or any head trauma, we will see if patient will benefit from home physical therapy versus rehab on discharge We will request consultation with case management Maintain K greater than four and magnesium greater than two Continue with rest of the home medications All labs will be repeated in the morning Date of service: 06/02/2024, Plan of care was discussed with patient and daughter at bedside, Gee Shanks MD Advanced Care Planning: Which of the following were discussed: Hospice care: Yes __ No _X_ Therapeutic options: Yes _X_ No __ Advance directives: Yes _X_ No __ Other discussions: Discussed with who?: Patient Voluntary nature of this service was explained to the patient? Yes _x_ No __ Amount of time spent: 20 minutes GEE SHANKS MD Jun 02, 2024 11:24
[2024-06-02] MEDS: PHARMACY COMMUNICATION MISC SCH (11:29)
[2024-06-02] MEDS ORDERED: BUDESONIDE 0.5 MG/2 ML INH IH SCH (11:30)
[2024-06-02] MEDS ORDERED: IpraTROPium 0.5 MG/2.5 ML INH IH PRN (11:30)
[2024-06-02] MEDS: INSULIN humuLIN R 100 UNIT/ML 3ML SQ SCH (11:30)
--- NOTE | 2024-06-02 11:43 | HMCIMG ---
CHEST 1VW REASON: r/o any significant infiltrates COMPARISON: 04/27/2024 FINDINGS: Single view of the chest was obtained. Lungs are clear. Heart size is normal. There is no pulmonary vascular congestion. Mediastinum and bony thorax appear unremarkable. There is a bipolar pacemaker in place. IMPRESSION: 1. No acute finding, no change.
[2024-06-02 11:51] VITALS: PULSE 84; RESP 18; O2SAT 98
[2024-06-02] MEDS: AMIOdarone 200 MG TABLET PO SCH (12:01)
[2024-06-02] MEDS: duloXETine HCL 30 MG CAP PO SCH (12:01)
[2024-06-02] MEDS: metOPROLol sucCINATE 25 MG TAB.SR.24H PO SCH (12:01)
[2024-06-02] MEDS: ceFEPime HCL 2 GM VIAL IVPB SCH (13:52)
[2024-06-02 19:22] VITALS: PULSE 80; RESP 18; O2SAT 96
[2024-06-02] MEDS: BUDESONIDE 0.5 MG/2 ML INH IH SCH (19:22)
[2024-06-02] MEDS: APIXaban 5 MG TABLET PO SCH (20:19)
[2024-06-02] MEDS: monteLUKAST sodIUM 10 MG TAB PO SCH (20:19)
[2024-06-02] MEDS: atorVAStatin 20 MG TABLET PO SCH (20:19)
[2024-06-02 20:35] VITALS: BP 130/76; PULSE 82; RESP 24; TEMP 98; O2SAT 95
[2024-06-02] MEDS: PRAZOSIN HCL 2 MG PO SCH (21:00)
[2024-06-03] VITALS (13 sets, daily range): BP systolic 112–137; BP diastolic 59–78; PULSE 80–85; RESP 18–22; TEMP 97.5–100.6; O2SAT 94–98
--- NOTE | 2024-06-03 00:24 | CONS ---
HISTORY OF PRESENT ILLNESS: The patient is 78 years old. He is not diabetic. He is status post second partial ray amputation on the left. He presented with an ulcer to the dorsal aspect of his interphalangeal joint of his right hallux with cellulitis, medial foot, medial ankle and medial leg. He has a history of neuropathy. He is not diabetic. He currently has no known drug allergies and is currently receiving IV vancomycin, IV cefepime. He has no complaints of pain. His medications were reviewed in the chart. He has coronary artery disease and heart disease. He has no peripheral vascular disease. He has a history of defibrillator placement and ablation surgery. He has had surgery for his right hip sinus and right shoulder. REVIEW OF SYSTEMS: CONSTITUTIONAL: No constitutional symptoms. HEENT: No problems with eyes, ears, nose or throat. CARDIOVASCULAR: Having no current chest pain. PSYCHIATRIC: Denies depression. MUSCULOSKELETAL: Bunions and hammertoes deformities. INTEGUMENT: He has a healed second toe amputation on the left. On the right, he has an ulcer that is 15 x 15 mm, 1 mm in depth to the dorsum of the interphalangeal joint of the right great toe. There is edema, erythema and cellulitis extending to the medial foot, medial ankle and medial leg. IMAGING STUDIES: X-rays of the right great toe, mild periosteal elevation. Venous ultrasound negative. PHYSICAL EXAMINATION: MUSCULOSKELETAL: Today shows he has palpable pedal pulses, he has absent protective sensation to his feet bilaterally. He has a well-healed second toe amputation on the left. On the right, he has an ulcer of 15 x 15 x 1 mm of the interphalangeal joint of the right great toe, 1-2 mm in depth. There is edema, erythema, cellulitis medial foot, medial ankle and medial leg on that right side. ASSESSMENT: Healed second toe amputation on the left ulcer with cellulitis to the right great toe. PLAN: I cultured the ulcer to the right great toe. I applied a dressing with Medihoney and Hydrofera Blue. We cannot get an MRI on this patient due to his pacemaker. We will continue with broad-spectrum antibiotic therapy currently, the IV vancomycin and the IV cefepime. Local wound care and offloading measures. TID: [id number] RECEIPT: [id number]
[2024-06-03 04:25] LABS: BASOPHILS # (AUTO) 0.01 K/uL (0.00-0.20); BASOPHILS % (AUTO) 0.1 % (0.0-5.0); EOSINOPHILS # (AUTO) 0.01 K/uL (0.00-0.70); EOSINOPHILS % (AUTO) 0.1 % (0.0-8.0); HEMATOCRIT 37.3 % (42-54); IMMATURE GRANULOCYTE ABSOLUTE 0.03 K/uL (0-1); LYMPHOCYTES # (AUTO) 0.5 K/uL (1.0-4.8); MEAN CORPUSCULAR HEMOGLOBIN 31.2 pg (27.0-33.0); MEAN CORPUSCULAR HGB CONC 32.4 g/dL (32.0-36.0); MEAN CORPUSCULAR VOLUME 96.1 fL (79-99); MONOCYTES # (AUTO) 0.9 K/uL (0.1-1.0); MONOCYTES % (AUTO) 10.5 % (3.0-13.0); NEUTROPHILS # (AUTO) 7.4 K/uL (1.8-7.7); PLATELET COUNT (AUTO) 146 K/uL (130-400); RED BLOOD CELL COUNT(AUTO) 3.88 MIL/uL (4.50-6.20); RED CELL DISTRIBUTION WIDTH 14.6 % (11.0-15.5)
[2024-06-03 05:08] LABS: ALBUMIN 2.5 g/dL (3.5-5.0); BILIRUBIN,TOTAL 0.8 mg/dL (0.2-1.0); CREATININE 1.3 mg/dL (0.5-1.3); POTASSIUM 3.7 mmol/L (3.5-5.1); TOTAL PROTEIN, SERUM 6.1 g/dL (6.0-8.3)
[2024-06-03] MEDS ORDERED: PoTASSium chloRIDE 20MEQ/100ML 100 ML IV PRN (06:00)
--- NOTE | 2024-06-03 07:36 | PN ---
SUBJECTIVE: The patient is 78 years old. He is diabetic. He is followed up for a second toe amputation on the left. He has developed a new ulcer to the right great toe. He is afebrile. White count is 9.0, H and H are 12 and 37. The patient is currently receiving IV vancomycin and IV cefepime. He has a wound culture that is pending. He has had previous evaluation of his circulation status and found to have no peripheral vascular disease. He has a history of pacemaker placement. He has had surgeries for his right hip and right shoulder and left second. toe amputation REVIEW OF SYSTEMS: CONSTITUTIONAL: No chills, no fevers, no night sweats, no nausea, vomiting, no diarrhea. HEENT: No problems with eyes, ears, nose or throat. CARDIOVASCULAR: No chest pain. RESPIRATORY: No shortness of breath. GENITOURINARY: No dysuria. MUSCULOSKELETAL: Bunions and hammertoes. INTEGUMENT: His surgical site is healed to the left second toe. On the right, he has an ulcer 15 x 15 x 1-2 mm of dorsum of the interphalangeal joint of the right great toe. He has edema, erythema and cellulitis, medial foot and medial ankle and medial leg. DIAGNOSTIC DATA: X-rays of his right foot show periosteal elevation. Venous ultrasound negative. OBJECTIVE: On examination today, he has palpable pedal pulses, absent protective sensation to his feet bilaterally. Well-healed second toe amputation on the left. On the right, he has an ulcer 15 x 15 x 1 mm interphalangeal joint dorsally of the right great toe. It is 1-2 mm in depth. He has edema, erythema and cellulitis, medial foot, medial ankle and medial leg. ASSESSMENT: A healed second toe amputation on the left, now with ulcer with cellulitis to the right great toe. PLAN: We will wait for the results of the culture of the right great toe wound. Continue with the IV vancomycin and the IV cefepime. Continue with Medihoney and Hydrofera Blue dressings. I cannot get an MRI on the patient due to his pacemaker. We will continue to follow the patient closely while in-house. TID: [id number] RECEIPT: [id number]
[2024-06-03] MEDS: VITAMIN D3 PO SCH (09:00)
[2024-06-03] MEDS: CALCIUM CARBONATE PO SCH (09:00)
[2024-06-03] MEDS: Fexofenadine HCl 180 MG PO SCH (09:00)
[2024-06-03] MEDS: acetaMINOPHEN 325 MG TAB PO PRN (10:51)
[2024-06-03] MEDS: PANTOPrazole 40 MG TAB DR PO SCH (10:51)
[2024-06-03] MEDS: MAGNESIUM OXIDE 400 MG TABLET PO SCH (10:51)
[2024-06-03] MEDS: ASPIRIN 81 MG EC TAB PO SCH (10:51)
[2024-06-03] MEDS: SPIRONOLACTONE 25 MG TAB PO SCH (10:51)
[2024-06-03] MEDS: TORSEMIDE 20 MG TAB PO SCH (10:52)
[2024-06-03] MEDS: MULTIVITAMIN WITH MINERALS TABLET PO SCH (10:52)
[2024-06-03] MEDS: VANCOMYCIN 1.25 GM/250 ML BAG 250 ML IV SCH (10:52)
[2024-06-03] MEDS: PoTASSium chl 10% ELIXIR 20MEQ 20 MEQ/15 ML UDCUP PO PRN (10:58)
[2024-06-03 11:40] LABS: INFLUENZA TYPE A Negative For Type A (NEGATIVE); INFLUENZA TYPE B Negative For Type B (NEGATIVE)
--- NOTE | 2024-06-03 14:25 | PN ---
[facility] PROGRESS NOTE Date of Service: Jun 03, 2024 Time of Service: 14:[address] Farmer SUBJECTIVE: [ 06/02 78-year-old male with underlying history of hypertension, hyperlipidemia, history of COPD, coronary artery disease, underlying history of cardiomyopathy w/LVEF 35-40% , who presented to the ER for further evaluation of redness and swelling involving the 1st toe of the right foot along with progressive erythema extending from the foot to the right leg. Daughter is present at bedside who assisted with further history, patient earlier in the morning had a fall where he landed on his hip. Denies syncopal episode or denies hitting his head or any head injuries. Patient states that he has been feeling weak and daughter noticed that right 1st toe was significantly red, swollen with concerns for blister. Patient denies any focal weakness of upper or lower extremities. Was recently hospitalized in [facility] and discharged on 05/03/2024 where he was found to have gangrene of the 2nd toe of the left foot and underwent amputation of the left 2nd toe by Dr. Christianson. Patient states that he has been healing well from the surgery involving the left toe. His last fall was about 3-4 months ago in daughter denies any previous history of stroke or head injury previously. On presentation to the hospital, patient was noted to be afebrile with T-max of 98.1 F, heart rate of 82, blood pressure of 126/68. [place] [address], hemoglobin of 13.6, platelet count of 406304. CMP remarkable for sodium of 141, potassium 4.2, BUN of 29, creatinine of 1.4, lactic acid of 1.3, CRP of 88. X-ray of the toe showed no evidence of osteomyelitis. Patient underwent venous Doppler Doppler of the lower extremity which showed no evidence of DVT. Patient will be admitted for further management of developing complicated ascending cellulitis involving the right great toe progressing to the foot and right leg. Patient will receive broad-spectrum antibiotics with vanc and cefepime. Given underlying history of cardiomyopathy and CKD, we will be conservative with IV fluids and monitor volume status closely. Consultation with Podiatry and Infectious Disease will be requested. We will have Physical therapy evaluate this patient tomorrow. 06/03 patient was seen by nurse practitioner and physician during rounding in room 406 comfortably lying in the bed. Toe x-ray showed no evidence of osteomyelitis. Per Dr. Christianson we will wait for the results of culture of the right great toe wound. We will continue IV antibiotics vancomycin and cefepime. Medihoney and Hydrofera blue dressings to be applied. MRI is unable to be performed due to patient has a pacemaker. We are pending further recommendation/evaluation by ID. We will continue to monitor patient in the meantime. A.m. labs. PT work with the patient and is recommending sniff. Per patient he would like to go to [facility]. Case management consulted] REVIEW OF SYSTEMS CONSTITUTIONAL: Fatigue, malaise, asthenia NEUROLOGICAL: Denies headache, amaurosis fugax, motor weakness, sensory deficit, vertigo/spinning sensation, gait abnormalities, or tremors. ENT: No hearing loss, otalgia, otorrhea, rhinitis, rhinorrhea, hoarseness, or sore throat. CARDIOVASCULAR: Denies any exertional angina, dyspnea on exertion, orthopnea, paroxysmal nocturnal dyspnea, palpitations, life-threatening arrhythmias, claudication. PULMONARY: Denies any shortness of breath, cough, phlegm/sputum, hemoptysis, pleuritic chest pain. SLEEP: Denies morning headaches, daytime somnolence or napping. Denies difficulty falling asleep, staying asleep, waking from sleep. Denies knowledge of snoring. GASTROINTESTINAL: Denies any type of dysphagia to either liquids or solids. Denies nausea, vomiting, pyrosis, early satiety, abdominal pain, diarrhea, constipation, or changes in stool consistency or caliber. Denies coffee-ground emesis, hematemesis, hematochezia, or melanotic stools. GENITOURINARY: Denies frequency, urgency, nocturia, hematuria or incontinence (Storage/Irritative symptoms.) Low urinary stream, straining to void, urinary intermittency or hesitancy, splitting of the voiding stream, terminal dribbling. ENDOCRINOLOGIC: Denies polyuria, polydipsia, polyphagia or heat/cold intolerances. HEMATOLOGIC: Denies thrombophilia/previous clots, or coagulopathy/bleeding disorders. ONCOLOGIC: Denies personal history of malignancy. DERMATOLOGIC: Redness of the 1st great toe with swelling and erythema and streaking involving the right foot and leg PSYCHIATRIC: Denies any suicidal or homicidal ideation. Denies hallucinations. PHYSICAL EXAM GENERAL APPEARANCE: The patient is awake, alert, and oriented, in no acute cardiopulmonary distress. NEUROLOGICAL: Cranial nerves II-XII grossly intact. Motor is 5/5 in bilateral upper and lower extremities proximal to distal. No sensory deficits. HEENT: Face is symmetric. Pupils are equal and reactive. Extraocular movements are intact. NECK: Supple. No JVD. No thyromegaly. No submental, submandibular, pre- /postauricular, occipital or supraclavicular lymphadenopathy. CHEST: Normal chest expansion. No Telemetry. LUNGS: Minimal crackles noted of bilateral lung bases CARDIOVASCULAR: Regular. S1 and S2 normal. No appreciable rubs, murmurs or gallops. ABDOMEN: Soft, nontender, and nondistended. There is no rebound, voluntary guarding, or rigidity. : Deferred. No King. EXTREMITIES: The great toe of the right foot is tender, swollen, with maceration noted of the skin, erythema is involving the right foot and extending into the legs SKIN: No skin breakdown. Vital Signs (last 8hr) Date Time Temp Pulse Resp B/P (MAP) Pulse Ox O2 Delivery O2 Flow Rate FiO2 06/03/24 14:07 98.4 83 18 117/67 93 Room Air 21 06/03/24 07:50 100.6 84 18 137/78 98 Room Air 21 06/03/24 06:34 85 18 N/A Room Air 21 06/03/24 06:31 85 18 LABS: Laboratory: Test 06/03/24 11:06 06/03/24 10:36 06/03/24 05:12 06/03/24 03:55 Range/Units Influenza Type A Antigen Negative For Type A NEGATIVE Influenza Type B Antigen Negative For Type B NEGATIVE Whole Blood Glucose 103 70-110 MG/DL Bedside Glucose Comment Notified Nurse White Blood Count 9.0 # 4.8-10.8 K/uL Red Blood Count 3.88 L 4.50-6.20 MIL/uL Hemoglobin 12.1 L 14.0-18.0 g/dL Hematocrit 37.3 L 42-54 % Mean Corpuscular Volume 96.1 79-99 fL Mean Corpuscular Hemoglobin 31.2 27.0-33.0 pg Mean Corpuscular Hemoglobin Concent 32.4 32.0-36.0 g/dL Red Cell Distribution Width 14.6 11.0-15.5 % Platelet Count 146 130-400 K/uL Mean Platelet Volume 11.5 H 7.5-10.5 fL Immature Granulocyte % (Auto) 0.3 0-1 % Neutrophils (%) (Auto) 83.0 H 40.0-77.0 % Lymphocytes (%) (Auto) 6.0 L 21.0-51.0 % Monocytes (%) (Auto) 10.5 3.0-13.0 % Eosinophils (%) (Auto) 0.1 0.0-8.0 % Basophils (%) (Auto) 0.1 0.0-5.0 % Neutrophils # (Auto) 7.4 1.8-7.7 K/uL Lymphocytes # (Auto) 0.5 L 1.0-4.8 K/uL Monocytes # (Auto) 0.9 0.1-1.0 K/uL Eosinophils # (Auto) 0.01 0.00-0.70 K/uL Basophils # (Auto) 0.01 0.00-0.20 K/uL Absolute Immature Granulocyte (auto 0.03 0-1 K/uL Nucleated Red Blood Cells 0.0 0.0-0.19 % Sodium Level 140 136-145 mmol/L Potassium Level 3.7 3.5-5.1 mmol/L Chloride Level 107 101-111 mmol/L Carbon Dioxide Level 23 21-32 mmol/L Blood Urea Nitrogen 25 H 7-18 mg/dL Creatinine 1.3 0.5-1.3 mg/dL Glomerular Filtration Rate Calc 56 >90 mL/min Random Glucose 107 H 70-105 mg/dL Total Calcium 7.8 L 8.5-10.1 mg/dL Magnesium Level 2.00 1.80-2.40 mg/dL Total Bilirubin 0.8 0.2-1.0 mg/dL Aspartate Amino Transf (AST/SGOT) 22 10-37 U/L Alanine Aminotransferase (ALT/SGPT) 14 12-78 U/L Alkaline Phosphatase 92 50-136 U/L Total Protein 6.1 6.0-8.3 g/dL Albumin 2.5 L 3.5-5.0 g/dL Test 06/02/24 10:40 06/02/24 09:10 06/02/24 08:53 Range/Units Prothrombin Time 12.0 H 9.6-11.6 SEC Prothromb Time International Ratio 1.12 0.85-1.15 Activated Partial Thromboplast Time 33.6 26.3-35.5 SEC Lactic Acid Level 1.3 0.8-2.5 mmol/L B-Type Natriuretic Peptide 194 H 0-100 pg/mL Direct Bilirubin 0.2 0.0-0.3 mg/dL C-Reactive Protein, Quantitative 87.70 H 0.5-3.0 mg/L Procalcitonin 0.14 0.05-0.5 ng/mL White Cell Morphology Comment See comments Erythrocyte Sedimentation Rate 28 H 0-20 MM/HR Current Medications Medications (Trade) Dose Ordered Sig/Kika Route PRN Reason Start Time Stop Time Status Last Admin Dose Admin Acetaminophen (TYLenol 325MG TAB) 650 mg Q6H PRN PO MILD PAIN (1-3) 06/02/24 10:30 07/02/24 10:29 06/03/24 10:51 650 MG Amiodarone HCl (pacERONE 200MG) 200 mg Q12H PO 06/02/24 11:00 07/02/24 10:59 06/03/24 10:51 200 MG Apixaban (EliquIS) 5 mg BID PO 06/02/24 21:00 07/02/24 20:59 06/03/24 10:51 5 MG Aspirin (Aspirin 81mg Ec Tab) 81 mg DAILY PO 06/03/24 09:00 07/03/24 08:59 06/03/24 10:51 81 MG Atorvastatin Calcium (LIPItor 20MG) 20 mg HS PO 06/02/24 21:00 07/02/24 20:59 06/02/24 20:19 20 MG Budesonide (Pulmicort 0.5 Mg/2ml) 0.5 mg Q12H IH 06/02/24 11:30 06/02/24 11:47 DC Budesonide (Pulmicort 0.5 Mg/2ml) 0.5 mg Q12H IH 06/02/24 18:00 07/02/24 17:59 06/03/24 06:31 0.5 MG Cefepime HCl (MAXipime 2 gm vial) 2 gm DAILY IVPB 06/02/24 14:00 06/12/24 13:59 06/03/24 10:52 2 GM Duloxetine HCl (CymbALTA 30 mg CAP) 30 mg Q24H PO 06/02/24 11:00 07/02/24 10:59 06/03/24 10:51 30 MG Home Med (Home Medication) Calcium Carbonate/ Vitamin... DAILY PO 06/03/24 09:00 07/03/24 08:59 Home Med (Home Medication) Fexofenadine HCl 180 MG DAILY PO 06/03/24 09:00 07/03/24 08:59 Home Med (Home Medication) Prazosin HCl 2 MG HS PO 06/02/24 21:00 07/02/24 20:59 Insulin Human Regular (humuLIN R 100 UNIT/ML 3ML) INSULIN SLIDING SCAL... ACHS SQ 06/02/24 11:30 07/02/24 11:29 Ipratropium Lavon (AtrovENT UD) 0.5 mg Q6H PRN IH SHORTNESS OF BREATH 06/02/24 11:30 07/02/24 11:29 Magnesium Oxide (Mag-Ox) 400 mg DAILY PO 06/03/24 09:00 07/03/24 08:59 06/03/24 10:51 400 MG Magnesium Sulfate 50 ml @ 0 mls/hr PROTOCOL IV 06/02/24 11:00 07/02/24 10:59 Metoprolol Succinate (TopROL XL) 25 mg Q24H PO 06/02/24 11:00 07/02/24 10:59 06/03/24 10:51 25 MG Montelukast Sodium (SinguLAIR) 10 mg HS PO 06/02/24 21:00 07/02/24 20:59 06/02/24 20:19 10 MG Multivitamins/ Minerals (Centrum) 1 tab DAILY PO 06/03/24 09:00 07/03/24 08:59 06/03/24 10:52 1 TAB Pantoprazole Sodium (PROTonix 40MG TAB) 40 mg DAILY PO 06/03/24 09:00 07/03/24 08:59 06/03/24 10:51 40 MG Pharmacy Profile Note (Pharmacy Communication) 1 each ONCE MISC 06/02/24 11:00 06/09/24 10:59 06/03/24 11:08 1 EACH Potassium Chloride 100 ml @ 100 mls/hr AD PRN IV POTASSIUM PROTOCOL 06/03/24 06:00 07/03/24 05:59 Potassium Chloride (K-Dur/Klor-Con 20meq) 20 meq AD PRN PO POTASSIUM PROTOCOL 06/03/24 06:00 07/03/24 05:59 Potassium Chloride (KCl 10% Elixir 20meq/15ml) 20 meq AD PRN PO POTASSIUM PROTOCOL 06/03/24 06:00 07/03/24 05:59 06/03/24 10:58 20 MEQ Spironolactone (Aldactone 25mg) 25 mg DAILY PO 06/03/24 09:00 07/03/24 08:59 06/03/24 10:51 25 MG Torsemide (Demadex) 10 mg DAILY PO 06/03/24 09:00 07/03/24 08:59 06/03/24 10:52 10 MG Vancomycin HCl 250 ml @ 125 mls/hr Q24H IV 06/03/24 10:00 06/13/24 09:59 06/03/24 10:52 125 MLS/HR Vancomycin HCl (Vancomycin Protocol) 1 each AD IV 06/02/24 09:00 06/16/24 08:59 DIAGNOSTICS / RADIOLOGY: [ ] ASSESSMENT: Progressive complicated ascending cellulitis of the 1st toe, right foot extending into the ascending cellulitis right leg, POA 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, 04/2024, POA Leukocytosis, POA Recent fall, POA Debility/frailty, POA History of anticoagulation with Eliquis as outpatient, POA Underlying history of atrial fibrillation, POA Underlying history of cardiomyopathy with LV EF of 35-40%, POA CKD stage IIIA, POA Hypertension, POA Hyperlipidemia, POA Octogenarian, POA PLAN: Patient will be admitted to medical-surgical floor under telemetry monitoring Patient will receive broad-spectrum antibiotics with IV vancomycin/cefepime, renally dosed Consultation with Podiatry and Infectious Disease will be requested, monitor closely for further progression of cellulitis, previous cultures from 2nd toe on last hospitalization showed Pseudomonas Follow up blood cultures, continue with local wound care of the great toe of the right foot per recommendations by Podiatry All home medications will be reconciled and updated, patient to continue with home dose of amiodarone, metoprolol succinate, Eliquis, spironolactone, torse mide We will have Physical therapy evaluate patient tomorrow, patient denies hitting his head or any head trauma, we will see if patient will We will request consultation with case management for snf Maintain K greater than four and magnesium greater than two Continue with rest of the home medications All labs will be repeated in the morning ATTESTATION BY PHYSICIAN I have seen and examined the patient. I reviewed the documentation, medical decision making, and treatment plan as noted by the mid-level provider above. I agree with the findings and plan of care. MD GEORGE Farmer [facility]ATARZYNA [facility] Jun 03, 2024 14:25
--- NOTE | 2024-06-03 14:57 | NUR ---
DCP CM MET WITH PT THIS MORNING ASSESSMENT DONE. PATIENT IS INDEPENDENT PRIOR TO ADMISSION, LIVES AT HOME WITH AND HIS DAUGHTER. 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 DENIES ANY OTHER EQUIPMENT/SERVICES. FEELS SAFE TO GO BACK HOME, DOES NOT DRIVE, DAUGHTER ABLE TO ASSIST WITH TRANSPORTATION AND NEEDS NECESSARY. DCP TO HOME ONCE STABLE. CM TO CONTINUE TO FOLLOW UP. Addendum: 06/03/24 at 1459 by SUMMER LITTLE LVN CM Amended: Links added.
[2024-06-04] VITALS (10 sets, daily range): BP systolic 94–136; BP diastolic 48–79; PULSE 80–85; RESP 18–20; TEMP 97.7–99; O2SAT 94–97
--- NOTE | 2024-06-04 03:16 | CONS ---
DATE OF SERVICE: 06/02/2024 INFECTIOUS DISEASE CONSULTATION NOTE REQUESTING PHYSICIAN: Gee Shanks MD REASON FOR CONSULTATION: Right foot cellulitis, on antibiotic management. HISTORY OF PRESENT ILLNESS: This is an 78-year-old male with history of hypertension, obesity, peripheral vascular disease and atrial fibrillation, who presented to the hospital with right great toe pain, swelling and redness. The patient's symptoms started two days ago. Noticed increased redness and a blister to the right great toe. The patient now came to the emergency room due to increasing and spreading of the redness to the right lower leg. The patient also has episode of fall last night. X-ray has been done, which was unremarkable. There is no evidence of fracture. The patient denies fever or chills. No weight loss. No night sweat. PAST MEDICAL HISTORY: 1. Obesity. 2. Hypertension. 3. Peripheral vascular disease. 4. COPD. 5. Coronary artery disease. 6. CHF. 7. Atrial fibrillation with left second toe osteomyelitis. PAST SURGICAL HISTORY: 1. Cardiac ablation. 2. AICD placement. 3. Left second toe amputation. ALLERGIES: No known drug allergy. CURRENT MEDICATIONS: Reviewed. SOCIAL HISTORY: Lives with . No alcohol, tobacco or illicit drug use. FAMILY HISTORY: Noncontributory. REVIEW OF SYSTEMS: CONSTITUTIONAL: No fever or chills. No weight loss or night sweats. EYES: No eye pain. No photophobia or diplopia. HENT: No sore throat. No rhinorrhea or earache. NECK: No neck pain or neck swelling. RESPIRATORY: No cough. No hemoptysis or pleuritic pain. CARDIOVASCULAR: No chest pain. No palpitations or orthopnea. GASTROINTESTINAL: Denies nausea, vomiting, or abdominal pain. GENITOURINARY: No dysuria, urgency or urinary frequency. CENTRAL NERVOUS SYSTEM: No headache, dyspnea or slurred speech. PSYCHIATRIC: No depression. No suicidal ideation. MUSCULOSKELETAL: Positive for right leg pain, swelling and redness. PHYSICAL EXAMINATION: GENERAL: Elderly male, awake, not in distress. VITAL SIGNS: Temperature 98.1, pulse 82, respiratory rate 16, BP 128/68. EYES: No icterus. Pupils are equal and reactive. HENT: No oral thrush seen. Moist oral mucosa. NECK: Supple. No JVD or thyromegaly. LUNGS: Good air entry. No rales. No rhonchi. CARDIOVASCULAR: S1, S2 regular. No murmur heard. ABDOMEN: Full, soft, nontender. Bowel sounds are present. CENTRAL NERVOUS SYSTEM: Awake, alert and oriented x 3. No focal deficits. SKIN: No rashes. No itchiness. LYMPHATIC: No peripheral lymphadenopathy. BACK: No deformity. No pressure ulcer. HEMATOLOGIC: No bleeding or petechial lesions seen. EXTREMITIES: Ulcer and cellulitis with blister involving the right great toe with extension to the right lower leg. LABORATORY DATA: Sodium 141, potassium 4.2, BUN 29, creatinine 1.4. WBC 12.4, hemoglobin 13.6, platelet 149. RADIOLOGY: X-ray of the right foot unremarkable. ASSESSMENT: An 78-year-old male presenting with right foot pain, swelling and redness. CURRENT PROBLEMS; Include: * Right foot ulcer and cellulitis. * Peripheral vascular disease. * Hypertension. * Obesity. * Atrial fibrillation. * Leukocytosis. * PLAN: * Continue vancomycin. * Continue cefepime. * Continue wound care. * Continue pain management. * Continue nutritional support. * Monitor electrolytes. * Continue antiarrhythmic agent. * Continue pain management. * Monitor electrolytes and correct as needed. Thank you for allowing me to participate in the care of this patient. TID: [id number] RECEIPT: [id number]
[2024-06-04 04:12] LABS: BASOPHILS # (AUTO) 0.01 K/uL (0.00-0.20); BASOPHILS % (AUTO) 0.2 % (0.0-5.0); EOSINOPHILS # (AUTO) 0.01 K/uL (0.00-0.70); EOSINOPHILS % (AUTO) 0.2 % (0.0-8.0); HEMATOCRIT 36.7 % (42-54); IMMATURE GRANULOCYTE ABSOLUTE 0.02 K/uL (0-1); LYMPHOCYTES # (AUTO) 0.8 K/uL (1.0-4.8); LYMPHOCYTES % (AUTO) 12.7 % (21.0-51.0); MEAN CORPUSCULAR HGB CONC 32.4 g/dL (32.0-36.0); MEAN CORPUSCULAR VOLUME 95.6 fL (79-99); MONOCYTES # (AUTO) 1.3 K/uL (0.1-1.0); MONOCYTES % (AUTO) 19.6 % (3.0-13.0); NEUTROPHILS # (AUTO) 4.3 K/uL (1.8-7.7); PLATELET COUNT (AUTO) 145 K/uL (130-400); RED BLOOD CELL COUNT(AUTO) 3.84 MIL/uL (4.50-6.20); RED CELL DISTRIBUTION WIDTH 14.6 % (11.0-15.5); WHITE BLOOD COUNT (AUTO) 6.4 K/uL (4.8-10.8)
[2024-06-04 04:57] LABS: ALBUMIN 2.5 g/dL (3.5-5.0); BILIRUBIN,TOTAL 0.6 mg/dL (0.2-1.0); CREATININE 1.3 mg/dL (0.5-1.3); POTASSIUM 3.5 mmol/L (3.5-5.1); TOTAL PROTEIN, SERUM 6.1 g/dL (6.0-8.3)
[2024-06-04] MEDS: PoTASSium chloRIDE 20MEQ ER 20 MEQ ERTAB PO PRN (05:33)
--- NOTE | 2024-06-04 07:19 | PN ---
SUBJECTIVE: The patient is 78 years old nondiabetic, followed up for cellulitis to his right foot, medial foot, medial ankle, medial leg. White count of 6.4, H and H 11 9 and 36.7, platelets 145, BUN 27, creatinine 1.3, albumin 2.5, glucose 91. Blood cultures, no growth. The patient is currently receiving vancomycin and cefepime. X-rays have been negative. We cannot get an MRI on this patient due to his pacemaker. He has had surgery for his right hip, right shoulder, he has had left second toe amputation. REVIEW OF SYSTEMS: CONSTITUTIONAL: No chills, no fevers, no night sweats, no nausea, vomiting, no diarrhea. HEENT: No problems with his eyes, ears, nose or throat. CARDIOVASCULAR: Having no current chest pain. RESPIRATORY: No shortness of breath. GENITOURINARY: No dysuria. GASTROINTESTINAL: No dysphagia. ENDOCRINE: Diabetes. PSYCHIATRIC: Denied any depression. MUSCULOSKELETAL: Bunions and hammertoe deformities. INTEGUMENT: He has an ulcer that is healed to the second ray on the left. He has an ulcer to the right great toe, 15 x 15 x 1 mm dorsal aspect of the interphalangeal joint. He has edema, erythema and cellulitis to the medial foot, medial ankle, medial leg, right. X-rays of the right foot show periosteal elevation. Venous ultrasound was negative. ASSESSMENT: An 78-year-old nondiabetic male, cellulitis of the right foot, ankle and leg. Superficial ulcer to the right great toe, healed second ray amputation on the left. The patient is receiving IV vancomycin and IV cefepime. PLAN: We will await the results of the intraoperative cultures. Continue with vancomycin and cefepime. Continue Medihoney dressings to the right great toe. Continue with Betadine dressings to the left second toe surgical site. I cannot get an MRI on this patient due to his pacemaker. We will follow the patient closely while in-house. TID: [id number] RECEIPT: [id number]
--- NOTE | 2024-06-04 13:05 | PN ---
[facility] PROGRESS NOTE Date of Service: Jun 04, 2024 Time of Service: 13:[address] Farmer SUBJECTIVE: [ 06/02 78-year-old male with underlying history of hypertension, hyperlipidemia, history of COPD, coronary artery disease, underlying history of cardiomyopathy w/LVEF 35-40% , who presented to the ER for further evaluation of redness and swelling involving the 1st toe of the right foot along with progressive erythema extending from the foot to the right leg. Daughter is present at bedside who assisted with further history, patient earlier in the morning had a fall where he landed on his hip. Denies syncopal episode or denies hitting his head or any head injuries. Patient states that he has been feeling weak and daughter noticed that right 1st toe was significantly red, swollen with concerns for blister. Patient denies any focal weakness of upper or lower extremities. Was recently hospitalized in [facility] and discharged on 05/03/2024 where he was found to have gangrene of the 2nd toe of the left foot and underwent amputation of the left 2nd toe by Dr. Christianson. Patient states that he has been healing well from the surgery involving the left toe. His last fall was about 3-4 months ago in daughter denies any previous history of stroke or head injury previously. On presentation to the hospital, patient was noted to be afebrile with T-max of 98.1 F, heart rate of 82, blood pressure of 126/68. [place] [address], hemoglobin of 13.6, platelet count of 567404. CMP remarkable for sodium of 141, potassium 4.2, BUN of 29, creatinine of 1.4, lactic acid of 1.3, CRP of 88. X-ray of the toe showed no evidence of osteomyelitis. Patient underwent venous Doppler Doppler of the lower extremity which showed no evidence of DVT. Patient will be admitted for further management of developing complicated ascending cellulitis involving the right great toe progressing to the foot and right leg. Patient will receive broad-spectrum antibiotics with vanc and cefepime. Given underlying history of cardiomyopathy and CKD, we will be conservative with IV fluids and monitor volume status closely. Consultation with Podiatry and Infectious Disease will be requested. We will have Physical therapy evaluate this patient tomorrow. 06/03 patient was seen by nurse practitioner and physician during rounding in room 406 comfortably lying in the bed. Toe x-ray showed no evidence of osteomyelitis. Per Dr. Christianson we will wait for the results of culture of the right great toe wound. We will continue IV antibiotics vancomycin and cefepime. Medihoney and Hydrofera blue dressings to be applied. MRI is unable to be performed due to patient has a pacemaker. We are pending further recommendation/evaluation by ID. We will continue to monitor patient in the meantime. A.m. labs. PT work with the patient and is recommending sniff. Per patient he would like to go to [facility]. Case management consulted 06/04 patient was seen by nurse practitioner and physician during rounding in one for 0 six. Id is recommending bone scan to evaluate for osteomyelitis. We will continue antibiotics as ordered Maxipime and vanco. Case management consulted for sniff versus home. We will continue to monitor patient in the meantime. A.m. labs.] REVIEW OF SYSTEMS CONSTITUTIONAL: Fatigue, malaise, asthenia NEUROLOGICAL: Denies headache, amaurosis fugax, motor weakness, sensory deficit, vertigo/spinning sensation, gait abnormalities, or tremors. ENT: No hearing loss, otalgia, otorrhea, rhinitis, rhinorrhea, hoarseness, or sore throat. CARDIOVASCULAR: Denies any exertional angina, dyspnea on exertion, orthopnea, paroxysmal nocturnal dyspnea, palpitations, life-threatening arrhythmias, claudication. PULMONARY: Denies any shortness of breath, cough, phlegm/sputum, hemoptysis, pleuritic chest pain. SLEEP: Denies morning headaches, daytime somnolence or napping. Denies difficulty falling asleep, staying asleep, waking from sleep. Denies knowledge of snoring. GASTROINTESTINAL: Denies any type of dysphagia to either liquids or solids. Denies nausea, vomiting, pyrosis, early satiety, abdominal pain, diarrhea, constipation, or changes in stool consistency or caliber. Denies coffee-ground emesis, hematemesis, hematochezia, or melanotic stools. GENITOURINARY: Denies frequency, urgency, nocturia, hematuria or incontinence (Storage/Irritative symptoms.) Low urinary stream, straining to void, urinary intermittency or hesitancy, splitting of the voiding stream, terminal dribbling. ENDOCRINOLOGIC: Denies polyuria, polydipsia, polyphagia or heat/cold intolerances. HEMATOLOGIC: Denies thrombophilia/previous clots, or coagulopathy/bleeding disorders. ONCOLOGIC: Denies personal history of malignancy. DERMATOLOGIC: Redness of the 1st great toe with swelling and erythema and streaking involving the right foot and leg PSYCHIATRIC: Denies any suicidal or homicidal ideation. Denies hallucinations. PHYSICAL EXAM GENERAL APPEARANCE: The patient is awake, alert, and oriented, in no acute cardiopulmonary distress. NEUROLOGICAL: Cranial nerves II-XII grossly intact. Motor is 5/5 in bilateral upper and lower extremities proximal to distal. No sensory deficits. HEENT: Face is symmetric. Pupils are equal and reactive. Extraocular movements are intact. NECK: Supple. No JVD. No thyromegaly. No submental, submandibular, pre-/pos tauricular, occipital or supraclavicular lymphadenopathy. CHEST: Normal chest expansion. No Telemetry. LUNGS: Minimal crackles noted of bilateral lung bases CARDIOVASCULAR: Regular. S1 and S2 normal. No appreciable rubs, murmurs or gallops. ABDOMEN: Soft, nontender, and nondistended. There is no rebound, voluntary guarding, or rigidity. : Deferred. No King. EXTREMITIES: The great toe of the right foot is tender, swollen, with m aceration noted of the skin, erythema is involving the right foot and extending into the legs SKIN: No skin breakdown. Vital Signs (last 8hr) Date Time Temp Pulse Resp B/P (MAP) Pulse Ox O2 Delivery O2 Flow Rate FiO2 06/04/24 11:50 97.7 82 18 107/57 96 Room Air 06/04/24 08:00 99.0 85 18 100/48 95 Room Air 06/04/24 07:00 83 18 06/04/24 06:59 83 18 N/A Room Air 21 LABS: Laboratory: Test 06/04/24 10:58 06/04/24 03:40 06/03/24 11:06 06/03/24 05:12 Range/Units Whole Blood Glucose 140 H 70-110 MG/DL White Blood Count 6.4 # 4.8-10.8 K/uL Red Blood Count 3.84 L 4.50-6.20 MIL/uL Hemoglobin 11.9 L 14.0-18.0 g/dL Hematocrit 36.7 L 42-54 % Mean Corpuscular Volume 95.6 79-99 fL Mean Corpuscular Hemoglobin 31.0 27.0-33.0 pg Mean Corpuscular Hemoglobin Concent 32.4 32.0-36.0 g/dL Red Cell Distribution Width 14.6 11.0-15.5 % Platelet Count 145 130-400 K/uL Mean Platelet Volume 11.1 H 7.5-10.5 fL Immature Granulocyte % (Auto) 0.3 0-1 % Neutrophils (%) (Auto) 67.0 40.0-77.0 % Lymphocytes (%) (Auto) 12.7 L 21.0-51.0 % Monocytes (%) (Auto) 19.6 H 3.0-13.0 % Eosinophils (%) (Auto) 0.2 0.0-8.0 % Basophils (%) (Auto) 0.2 0.0-5.0 % Neutrophils # (Auto) 4.3 1.8-7.7 K/uL Lymphocytes # (Auto) 0.8 L 1.0-4.8 K/uL Monocytes # (Auto) 1.3 H 0.1-1.0 K/uL Eosinophils # (Auto) 0.01 0.00-0.70 K/uL Basophils # (Auto) 0.01 0.00-0.20 K/uL Absolute Immature Granulocyte (auto 0.02 0-1 K/uL Nucleated Red Blood Cells 0.0 0.0-0.19 % Sodium Level 141 136-145 mmol/L Potassium Level 3.5 3.5-5.1 mmol/L Chloride Level 105 101-111 mmol/L Carbon Dioxide Level 24 21-32 mmol/L Blood Urea Nitrogen 27 H 7-18 mg/dL Creatinine 1.3 0.5-1.3 mg/dL Glomerular Filtration Rate Calc 56 >90 mL/min Random Glucose 91 70-105 mg/dL Total Calcium 8.0 L 8.5-10.1 mg/dL Magnesium Level 2.00 1.80-2.40 mg/dL Total Bilirubin 0.6 # 0.2-1.0 mg/dL Aspartate Amino Transf (AST/SGOT) 21 10-37 U/L Alanine Aminotransferase (ALT/SGPT) 17 # 12-78 U/L Alkaline Phosphatase 83 50-136 U/L Total Protein 6.1 6.0-8.3 g/dL Albumin 2.5 L 3.5-5.0 g/dL Influenza Type A Antigen Negative For Type A NEGATIVE Influenza Type B Antigen Negative For Type B NEGATIVE Bedside Glucose Comment Notified Nurse Current Medications Medications (Trade) Dose Ordered Sig/Kika Route PRN Reason Start Time Stop Time Status Last Admin Dose Admin Acetaminophen (TYLenol 325MG TAB) 650 mg Q6H PRN PO MILD PAIN (1-3) 06/02/24 10:30 07/02/24 10:29 06/03/24 10:51 650 MG Amiodarone HCl (pacERONE 200MG) 200 mg Q12H PO 06/02/24 11:00 07/02/24 10:59 06/04/24 11:41 200 MG Apixaban (EliquIS) 5 mg BID PO 06/02/24 21:00 07/02/24 20:59 06/04/24 09:22 5 MG Aspirin (Aspirin 81mg Ec Tab) 81 mg DAILY PO 06/03/24 09:00 07/03/24 08:59 06/04/24 09:21 81 MG Atorvastatin Calcium (LIPItor 20MG) 20 mg HS PO 06/02/24 21:00 07/02/24 20:59 06/03/24 19:51 20 MG Budesonide (Pulmicort 0.5 Mg/2ml) 0.5 mg Q12H IH 06/02/24 11:30 06/02/24 11:47 DC Budesonide (Pulmicort 0.5 Mg/2ml) 0.5 mg Q12H IH 06/02/24 18:00 07/02/24 17:59 06/04/24 06:59 0.5 MG Cefepime HCl (MAXipime 2 gm vial) 2 gm DAILY IVPB 06/02/24 14:00 06/12/24 13:59 06/04/24 09:22 2 GM Duloxetine HCl (CymbALTA 30 mg CAP) 30 mg Q24H PO 06/02/24 11:00 07/02/24 10:59 06/04/24 11:41 30 MG Home Med (Home Medication) Calcium Carbonate/ Vitamin... DAILY PO 06/03/24 09:00 07/03/24 08:59 Home Med (Home Medication) Fexofenadine HCl 180 MG DAILY PO 06/03/24 09:00 07/03/24 08:59 Home Med (Home Medication) Prazosin HCl 2 MG HS PO 06/02/24 21:00 07/02/24 20:59 Insulin Human Regular (humuLIN R 100 UNIT/ML 3ML) INSULIN SLIDING SCAL... ACHS SQ 06/02/24 11:30 07/02/24 11:29 Ipratropium Kaufman (AtrovENT UD) 0.5 mg Q6H PRN IH SHORTNESS OF BREATH 06/02/24 11:30 07/02/24 11:29 Leptospermum Honey (Medihoney) 1 APPL DAILY TP 06/04/24 09:00 07/04/24 08:59 Magnesium Oxide (Mag-Ox) 400 mg DAILY PO 06/03/24 09:00 07/03/24 08:59 06/04/24 09:21 400 MG Magnesium Sulfate 50 ml @ 0 mls/hr PROTOCOL IV 06/02/24 11:00 07/02/24 10:59 Metoprolol Succinate (TopROL XL) 25 mg Q24H PO 06/02/24 11:00 07/02/24 10:59 06/04/24 11:41 25 MG Montelukast Sodium (SinguLAIR) 10 mg HS PO 06/02/24 21:00 07/02/24 20:59 06/03/24 19:51 10 MG Multivitamins/ Minerals (Centrum) 1 tab DAILY PO 06/03/24 09:00 07/03/24 08:59 06/04/24 09:22 1 TAB Pantoprazole Sodium (PROTonix 40MG TAB) 40 mg DAILY PO 06/03/24 09:00 07/03/24 08:59 06/04/24 09:22 40 MG Pharmacy Profile Note (Pharmacy Communication) 1 each ONCE MISC 06/02/24 11:00 06/04/24 07:19 DC 06/03/24 11:08 1 EACH Potassium Chloride 100 ml @ 100 mls/hr AD PRN IV POTASSIUM PROTOCOL 06/03/24 06:00 07/03/24 05:59 Potassium Chloride (K-Dur/Klor-Con 20meq) 20 meq AD PRN PO POTASSIUM PROTOCOL 06/03/24 06:00 07/03/24 05:59 06/04/24 09:21 20 MEQ Potassium Chloride (KCl 10% Elixir 20meq/15ml) 20 meq AD PRN PO POTASSIUM PROTOCOL 06/03/24 06:00 07/03/24 05:59 06/03/24 19:52 20 MEQ Spironolactone (Aldactone 25mg) 25 mg DAILY PO 06/03/24 09:00 07/03/24 08:59 06/04/24 09:22 25 MG Torsemide (Demadex) 10 mg DAILY PO 06/03/24 09:00 07/03/24 08:59 06/04/24 09:22 10 MG Vancomycin HCl 250 ml @ 125 mls/hr Q24H IV 06/03/24 10:00 06/13/24 09:59 06/04/24 11:42 125 MLS/HR Vancomycin HCl (Vancomycin Protocol) 1 each AD IV 06/02/24 09:00 06/16/24 08:59 DIAGNOSTICS / RADIOLOGY: [ ] ASSESSMENT: Progressive complicated ascending cellulitis of the 1st toe, right foot extending into the ascending cellulitis right leg, POA 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, 04/2024, POA Leukocytosis, POA Recent fall, POA Debility/frailty, POA History of anticoagulation with Eliquis as outpatient, POA Underlying history of atrial fibrillation, POA Underlying history of cardiomyopathy with LV EF of 35-40%, POA CKD stage IIIA, POA Hypertension, POA Hyperlipidemia, POA Octogenarian, POA PLAN: Patient will be admitted to medical-surgical floor under telemetry monitoring Patient will receive broad-spectrum antibiotics with IV vancomycin/cefepime, renally dosed Consultation with Podiatry and Infectious Disease will be requested, monitor closely for further progression of cellulitis, previous cultures from 2nd toe on last hospitalization showed Pseudomonas Follow up blood cultures, continue with local wound care of the great toe of the right foot per recommendations by Podiatry All home medications will be reconciled and updated, patient to continue with home dose of amiodarone, metoprolol succinate, Eliquis, spironolactone, torsemide We will have Physical therapy evaluate patient tomorrow, patient denies hitting his head or any head trauma, we will see if patient will We will request consultation with case management for snf Maintain K greater than four and magnesium greater than two Continue with rest of the home medications All labs will be repeated in the morning ATTESTATION BY PHYSICIAN I have seen and examined the patient. I reviewed the documentation, medical decision making, and treatment plan as noted by the mid-level provider above. I agree with the findings and plan of care. MD GEORGE Farmer [facility] Jun 04, 2024 13:05
[2024-06-04] MEDS: HONEY 1 APPL/ML TUBE TP SCH (18:49)
--- NOTE | 2024-06-04 19:42 | NUR ---
PATIENT TO HAVE BONE SCAN DONE. DEPENDING ON RESULTS PATIENT WILL EITHER CONTINUE IV ANTIBIOTICS AT SNF OR D/C HOME PER DR HADDAD
--- NOTE | 2024-06-04 21:47 | PN ---
INFECTIOUS DISEASE PROGRESS NOTE Date of Service: Jun 04, 2024 SUBJECTIVE: This is an 78-year-old male patient who was seen and examined at bedside in room 406. Patient is awake, alert and oriented x3. No fever reported this morning, temperature is 97.7 and the WBC is now 6.4. The wound culture to the right great toe came back positive for Streptococcus group G. We will obtain a bone scan to rule out osteomyelitis. Patient continues on vancomycin and cefepime IV. No reports of nausea or vomiting. Will continue to monitor patient's care. PHYSICAL EXAM EYES: Anicteric. Pupils equal and reactive. HENT: No oral thrush seen, moist Oral mucosa. NECK: Supple, no JVD or thyromegaly. LUNGS: Good air entry. No rales, no rhonchi. CARDIOVASCULAR: S1, S2 regular. No murmur heard. ABDOMEN: Soft, non tender, bowel sounds present, no organomegaly. CENTRAL NERVOUS SYSTEM: Awake, alert, oriented x 3. SKIN: No rashes, no swelling. LYMPHATICS: No peripheral lymphadenopathy. MUSCULOSKELETAL: No joint swelling, erythema or tenderness. EXTREMITIES: No cyanosis or clubbing. BACK: No deformity, no pressure ulcer. GENITOURINARY: No dysuria or hematuria. Vital Sign (Last 12 Hours) 06/04/24 06/04/24 06/04/24 06/04/24 11:50 16:00 18:46 18:47 Temp 97.7 98.4 Pulse 82 81 82 83 Resp 18 18 18 18 B/P (MAP) 107/57 112/75 Pulse Ox 96 97 O2 Delivery Room Air Room Air N/A Room Air FiO2 21 06/04/24 20:00 Temp 98.1 Pulse 80 Resp 20 B/P (MAP) 136/79 Pulse Ox 96 O2 Delivery Room Air Intake & Output (last 24hrs) 06/03/24 06/03/24 06/04/24 15:00 23:00 07:00 Output Total 100 ml 1950 ml Balance -100 ml -1950 ml LABS: Laboratory: Test 06/04/24 21:00 06/04/24 03:40 06/03/24 11:06 06/03/24 05:12 Range/Units Whole Blood Glucose 141 H 70-110 MG/DL White Blood Count 6.4 # 4.8-10.8 K/uL Red Blood Count 3.84 L 4.50-6.20 MIL/uL Hemoglobin 11.9 L 14.0-18.0 g/dL Hematocrit 36.7 L 42-54 % Mean Corpuscular Volume 95.6 79-99 fL Mean Corpuscular Hemoglobin 31.0 27.0-33.0 pg Mean Corpuscular Hemoglobin Concent 32.4 32.0-36.0 g/dL Red Cell Distribution Width 14.6 11.0-15.5 % Platelet Count 145 130-400 K/uL Mean Platelet Volume 11.1 H 7.5-10.5 fL Immature Granulocyte % (Auto) 0.3 0-1 % Neutrophils (%) (Auto) 67.0 40.0-77.0 % Lymphocytes (%) (Auto) 12.7 L 21.0-51.0 % Monocytes (%) (Auto) 19.6 H 3.0-13.0 % Eosinophils (%) (Auto) 0.2 0.0-8.0 % Basophils (%) (Auto) 0.2 0.0-5.0 % Neutrophils # (Auto) 4.3 1.8-7.7 K/uL Lymphocytes # (Auto) 0.8 L 1.0-4.8 K/uL Monocytes # (Auto) 1.3 H 0.1-1.0 K/uL Eosinophils # (Auto) 0.01 0.00-0.70 K/uL Basophils # (Auto) 0.01 0.00-0.20 K/uL Absolute Immature Granulocyte (auto 0.02 0-1 K/uL Nucleated Red Blood Cells 0.0 0.0-0.19 % Sodium Level 141 136-145 mmol/L Potassium Level 3.5 3.5-5.1 mmol/L Chloride Level 105 101-111 mmol/L Carbon Dioxide Level 24 21-32 mmol/L Blood Urea Nitrogen 27 H 7-18 mg/dL Creatinine 1.3 0.5-1.3 mg/dL Glomerular Filtration Rate Calc 56 >90 mL/min Random Glucose 91 70-105 mg/dL Total Calcium 8.0 L 8.5-10.1 mg/dL Magnesium Level 2.00 1.80-2.40 mg/dL Total Bilirubin 0.6 # 0.2-1.0 mg/dL Aspartate Amino Transf (AST/SGOT) 21 10-37 U/L Alanine Aminotransferase (ALT/SGPT) 17 # 12-78 U/L Alkaline Phosphatase 83 50-136 U/L Total Protein 6.1 6.0-8.3 g/dL Albumin 2.5 L 3.5-5.0 g/dL Influenza Type A Antigen Negative For Type A NEGATIVE Influenza Type B Antigen Negative For Type B NEGATIVE Bedside Glucose Comment Notified Nurse ASSESSMENT: Right great toe ulcer infection with Streptococcus group G. Right foot cellulitis. Leukocytosis, resolving. Peripheral vascular disease. Atrial fibrillation, on anticoagulation. PLAN: Continue vancomycin per pharmacy protocol. Continue cefepime IV. Continue GI prophylaxis Continue wound care. We will follow up on the wound cultures. Continue monitoring glucose levels. Continue antiarrhythmics. Obtain a bone scan. This case was reviewed and discussed with my supervising physician and the above assessment and plan was formulated and agreed upon. ATTESTATION BY PHYSICIAN I have seen and examined the patient. I reviewed the documentation, medical decision making, and treatment plan as noted by the mid-level provider above. I agree with the findings and plan of care. ELVIS HADDAD MD, [facility] Jun 04, 2024 21:47
[2024-06-05] VITALS (9 sets, daily range): BP systolic 104–138; BP diastolic 61–84; PULSE 79–97; RESP 18–20; TEMP 97.3–98.7; O2SAT 94–97
[2024-06-05 04:23] LABS: BASOPHILS # (AUTO) 0.03 K/uL (0.00-0.20); BASOPHILS % (AUTO) 0.5 % (0.0-5.0); EOSINOPHILS # (AUTO) 0.01 K/uL (0.00-0.70); EOSINOPHILS % (AUTO) 0.2 % (0.0-8.0); HEMATOCRIT 39.5 % (42-54); IMMATURE GRANULOCYTE ABSOLUTE 0.03 K/uL (0-1); LYMPHOCYTES # (AUTO) 1.2 K/uL (1.0-4.8); LYMPHOCYTES % (AUTO) 18.4 % (21.0-51.0); MEAN CORPUSCULAR HEMOGLOBIN 30.8 pg (27.0-33.0); MEAN CORPUSCULAR HGB CONC 32.4 g/dL (32.0-36.0); MONOCYTES # (AUTO) 1.3 K/uL (0.1-1.0); MONOCYTES % (AUTO) 21.3 % (3.0-13.0); NEUTROPHILS # (AUTO) 3.7 K/uL (1.8-7.7); NEUTROPHILS % (AUTO) 59.1 % (40.0-77.0); PLATELET COUNT (AUTO) 163 K/uL (130-400); RED BLOOD CELL COUNT(AUTO) 4.16 MIL/uL (4.50-6.20); RED CELL DISTRIBUTION WIDTH 14.6 % (11.0-15.5); WHITE BLOOD COUNT (AUTO) 6.2 K/uL (4.8-10.8)
[2024-06-05 04:46] LABS: ALBUMIN 2.6 g/dL (3.5-5.0); BILIRUBIN,TOTAL 0.5 mg/dL (0.2-1.0); CREATININE 1.5 mg/dL (0.5-1.3); POTASSIUM 3.8 mmol/L (3.5-5.1); TOTAL PROTEIN, SERUM 6.4 g/dL (6.0-8.3)
--- NOTE | 2024-06-05 09:00 | NUR ---
DR ZAMARRIPA HERE TO SEE PATIENT. WOUND CARE PROVIDED BY DR ZAMARRIPA
--- NOTE | 2024-06-05 09:00 | PN ---
SUBJECTIVE: The patient is a very pleasant 78-year-old diabetic, male. White count 6.2, H and H 12.8 and 39.5, platelets 163. BUN 31, creatinine 1.5, albumin 2.6, neutrophils 59.1. The patient is currently receiving IV vancomycin. The patient has a bone scan pending results. He is nondiabetic. He is status post second ray amputation on the left. He presents with an ulcer in dorsal aspect of the interphalangeal joint on the right with cellulitis, medial foot, medial ankle, medial leg; currently receiving the IV vancomycin and the IV cefepime. He has no complaint of pain. He has neuropathy. He has coronary artery disease, heart disease, peripheral vascular disease. He has a history of defibrillator placement and ablation surgery. He has had surgery for his right hip, sinus surgery, and right shoulder surgery. REVIEW OF SYSTEMS: CONSTITUTIONAL: No chills, no fevers, no night sweats, no nausea or vomiting, no diarrhea. HEENT: No problems with his eyes, ears, nose, or throat. CARDIOVASCULAR: He is having no current chest pain. RESPIRATORY: No shortness of breath. PSYCHIATRIC: Denied any depression. MUSCULOSKELETAL: Bunions and hammertoe deformities. INTEGUMENT: He has an incision site well coapted to the second ray amputation on the left. On the right, he has an ulcer 15 x 15 x 1 mm to the dorsum of the interphalangeal joint of the right great toe. There is decreased edema, decreased erythema, decreased cellulitis to the foot, ankle, and leg. EXTREMITIES: He has palpable pedal pulses. He has absent protective sensation to his feet bilaterally. He has well-healed second toe amputation on the left. On the right, he has an ulcer 15 x 15 x 1 mm to the interphalangeal joint of the right great toe, 1-2 mm in depth. There is edema, erythema, cellulitis to medial foot, medial ankle, medial leg on the right. IMAGING STUDIES: X-rays of the right great toe: Mild periosteal elevation, bone scan pending. ASSESSMENT: Healed second toe amputation on the left. Ulcer with cellulitis to the right great toe. PLAN: We will continue with the IV vancomycin and the IV cefepime, awaiting the results of the bone scan. Continue with Medihoney dressings. Follow up the patient closely while in-house. TID: [id number] RECEIPT: [id number]
--- NOTE | 2024-06-05 09:37 | HMCIMG ---
Exam Type: NM BONE SCAN 3 PHASE Clinical Information: Patient Hx: hypertension, hyperlipidemia, COPD, CAD, Cardiomyopathy, redness and swelling of the right first toe with progressive erythema extending from right foot to right leg Order Dx: R/O osteomyelitis of right toe Xray: 06/02/24 no acute fracture or dislocation, no joint effusion, degenerative changes in tarsal joints, no evidence of osteomyelitis. Tc99m MDP ( 26.5mCi ) administered via IV POSSIBLE CONTAMINATION ON PATIENT RIB CAGE FROM IV INJECTION. Comparison: None FINDINGS: There is increased flow and blood pool activity of the right foot and ankle compared to the left. There is increased flow particularly to the right first toe but the later images demonstrate decrease in activity of the first toe as well as the right foot and these findings are consistent with acute right foot and right first toe cellulitis without osteomyelitis. There are degenerative changes of both tarsal compartments. IMPRESSION: Cellulitis. No osteomyelitis.
[2024-06-05] MEDS: VANCOMYCIN 1.5 GM/250 ML BAG 250 ML IV SCH (11:02)
[2024-06-05] MEDS: cefTRIAXone 1G VIAL IVPB SCH (12:21)
--- NOTE | 2024-06-05 12:35 | PN ---
INFECTIOUS DISEASE PROGRESS NOTE Date of Service: Jun 05, 2024 SUBJECTIVE: This is an 78-year-old male patient who was seen and examined at bedside in room 406. Patient is awake, alert and oriented x3. Patient is laying comfortably in bed. The bone scan findings was negative for osteomyelitis. Dr. Christianson following patient. No fever, temperature is 97.9 and the WBC is now 6.2. Patient continues on vancomycin and cefepime IV. No reports of nausea or vomiting. Will continue to monitor patient's care. PHYSICAL EXAM EYES: Anicteric. Pupils equal and reactive. HENT: No oral thrush seen, moist Oral mucosa. NECK: Supple, no JVD or thyromegaly. LUNGS: Good air entry. No rales, no rhonchi. CARDIOVASCULAR: S1, S2 regular. No murmur heard. ABDOMEN: Soft, non tender, bowel sounds present, no organomegaly. CENTRAL NERVOUS SYSTEM: Awake, alert, oriented x 3. SKIN: No rashes, no swelling. LYMPHATICS: No peripheral lymphadenopathy. MUSCULOSKELETAL: No joint swelling, erythema or tenderness. EXTREMITIES: No cyanosis or clubbing. Right great toe ulcer. BACK: No deformity, no pressure ulcer. GENITOURINARY: No dysuria or hematuria. Vital Sign (Last 12 Hours) 06/05/24 06/05/24 06/05/24 06/05/24 04:00 06:41 06:41 08:00 Temp 98.4 97.5 Pulse 79 80 80 81 Resp 20 18 18 18 B/P (MAP) 134/82 115/72 Pulse Ox 96 95 O2 Delivery Room Air N/A Room Air FiO2 21 06/05/24 12:00 Temp 97.9 Pulse 80 Resp 18 B/P (MAP) 106/61 Pulse Ox 96 O2 Delivery Room Air Intake & Output (last 24hrs) 06/04/24 06/04/24 06/05/24 14:59 22:59 06:59 Intake Total 1000 ml Output Total 1275 ml 1150 ml 200 ml Balance -1275 ml -150 ml -200 ml LABS: Laboratory: Test 06/05/24 11:40 06/05/24 09:00 06/05/24 04:04 Range/Units Whole Blood Glucose 121 H 70-110 MG/DL Vancomycin Level Trough 8.2 #L 10.0-20.0 UG/ML White Blood Count 6.2 4.8-10.8 K/uL Red Blood Count 4.16 L 4.50-6.20 MIL/uL Hemoglobin 12.8 L 14.0-18.0 g/dL Hematocrit 39.5 L 42-54 % Mean Corpuscular Volume 95.0 79-99 fL Mean Corpuscular Hemoglobin 30.8 27.0-33.0 pg Mean Corpuscular Hemoglobin Concent 32.4 32.0-36.0 g/dL Red Cell Distribution Width 14.6 11.0-15.5 % Platelet Count 163 130-400 K/uL Mean Platelet Volume 11.1 H 7.5-10.5 fL Immature Granulocyte % (Auto) 0.5 0-1 % Neutrophils (%) (Auto) 59.1 40.0-77.0 % Lymphocytes (%) (Auto) 18.4 L 21.0-51.0 % Monocytes (%) (Auto) 21.3 H 3.0-13.0 % Eosinophils (%) (Auto) 0.2 0.0-8.0 % Basophils (%) (Auto) 0.5 0.0-5.0 % Neutrophils # (Auto) 3.7 1.8-7.7 K/uL Lymphocytes # (Auto) 1.2 1.0-4.8 K/uL Monocytes # (Auto) 1.3 H 0.1-1.0 K/uL Eosinophils # (Auto) 0.01 0.00-0.70 K/uL Basophils # (Auto) 0.03 0.00-0.20 K/uL Absolute Immature Granulocyte (auto 0.03 0-1 K/uL Nucleated Red Blood Cells 0.0 0.0-0.19 % Sodium Level 141 136-145 mmol/L Potassium Level 3.8 3.5-5.1 mmol/L Chloride Level 104 101-111 mmol/L Carbon Dioxide Level 27 21-32 mmol/L Blood Urea Nitrogen 31 H 7-18 mg/dL Creatinine 1.5 H 0.5-1.3 mg/dL Glomerular Filtration Rate Calc 47 >90 mL/min Random Glucose 95 70-105 mg/dL Total Calcium 8.3 L 8.5-10.1 mg/dL Magnesium Level 2.00 1.80-2.40 mg/dL Total Bilirubin 0.5 0.2-1.0 mg/dL Aspartate Amino Transf (AST/SGOT) 38 H 10-37 U/L Alanine Aminotransferase (ALT/SGPT) 31 12-78 U/L Alkaline Phosphatase 95 50-136 U/L Total Protein 6.4 6.0-8.3 g/dL Albumin 2.6 L 3.5-5.0 g/dL ASSESSMENT: Right great toe ulcer infection with Streptococcus group G. Right foot cellulitis. Leukocytosis, resolving. Peripheral vascular disease. Atrial fibrillation, on anticoagulation. PLAN: Continue vancomycin per pharmacy protocol. Continue cefepime IV. Continue GI prophylaxis Continue wound care as recommended by Dr. Christianson. Continue monitoring glucose levels. Continue antiarrhythmics. Will Monitor electrolytes. This case was reviewed and discussed with my supervising physician and the above assessment and plan was formulated and agreed upon. ATTESTATION BY PHYSICIAN I have seen and examined the patient. I reviewed the documentation, medical decision making, and treatment plan as noted by the mid-level provider above. I agree with the findings and plan of care. ELVIS HADDAD MD, [facility] Jun 05, 2024 12:35
--- NOTE | 2024-06-05 13:32 | DS ---
Discharge Summary Hospital Course Summary: DATE OF ADMISSION:[06/02/2024] DATE OF DISCHARGE:[06/05/2024] DISPOSITION:[[facility]] CONDITION:[Medically stable] CONSULTANTS: Dr. Christianson, id [] FOLLOW UP APPOINTMENTS:[PCP [address] Christianson one week. 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 Daughter is present at bedside who assisted with further history, patient earlier in the morning had a fall where he landed on his hip. Denies syncopal episode or denies hitting his head or any head injuries. Patient states that he has been feeling weak and daughter noticed that right 1st toe was significantly red, swollen with concerns for blister. Patient denies any focal weakness of upper or lower extremities. Was recently hospitalized in [facility] and discharged on 05/03/2024 where he was found to have gangrene of the 2nd toe of the left foot and underwent amputation of the left 2nd toe by Dr. Christianson. Patient states that he has been healing well from the surgery involving the left toe. His last fall was about 3-4 months ago in daughter denies any previous history of stroke or head injury previously. On presentation to the hospital, patient was noted to be afebrile with T-max of 98.1 F, heart rate of 82, blood pressure of 126/68. [place] [address], hemoglobin of 13.6, platelet count of 482055. CMP remarkable for sodium of 141, potassium 4.2, BUN of 29, creatinine of 1.4, lactic acid of 1.3, CRP of 88. X-ray of the toe showed no evidence of osteomyelitis. Patient underwent venous Doppler Doppler of the lower extremity which showed no evidence of DVT. Patient will be admitted for further management of developing complicated ascending cellulitis involving the right great toe progressing to the foot and right leg. Patient will receive broad-spectrum antibiotics with vanc and cefepime. Given underlying history of cardiomyopathy and CKD, we will be conservative with IV fluids and monitor volume status closely. Consultation with Podiatry and Infectious Disease was requested. Throughout the hospitalization patient underwent chest x-ray which was negative venous Doppler negative toe x-ray showed no evidence of osteomyelitis. We also performed bone scan which was negative for osteomyelitis. MRI of the foot was not able to do due to patient having a pacemaker. Per ID patient will be discharged on antibiotics to [facility]. Patient was also cleared by Dr. Christianson follow-up within one week. Procedure(s): REVIEW OF SYSTEMS CONSTITUTIONAL: Denies any NEUROLOGICAL: Denies headache, amaurosis fugax, motor weakness, sensory deficit, vertigo/spinning sensation, gait abnormalities, or tremors. ENT: No hearing loss, otalgia, otorrhea, rhinitis, rhinorrhea, hoarseness, or sore throat. CARDIOVASCULAR: Denies any exertional angina, dyspnea on exertion, orthopnea, paroxysmal nocturnal dyspnea, palpitations, life-threatening arrhythmias, claudication. PULMONARY: Denies any shortness of breath, cough, phlegm/sputum, hemoptysis, pleuritic chest pain. SLEEP: Denies morning headaches, daytime somnolence or napping. Denies difficulty falling asleep, staying asleep, waking from sleep. Denies knowledge of snoring. GASTROINTESTINAL: Denies any type of dysphagia to either liquids or solids. Denies nausea, vomiting, pyrosis, early satiety, abdominal pain, diarrhea, constipation, or changes in stool consistency or caliber. Denies coffee-ground emesis, hematemesis, hematochezia, or melanotic stools. GENITOURINARY: Denies frequency, urgency, nocturia, hematuria or incontinence (Storage/Irritative symptoms.) Low urinary stream, straining to void, urinary intermittency or hesitancy, splitting of the voiding stream, terminal dribbling. ENDOCRINOLOGIC: Denies polyuria, polydipsia, polyphagia or heat/cold intolerances. HEMATOLOGIC: Denies thrombophilia/previous clots, or coagulopathy/bleeding disorders. ONCOLOGIC: Denies personal history of malignancy. DERMATOLOGIC: Redness of the 1st great toe with swelling and erythema and streaking involving the right foot and leg ramirez simproved PSYCHIATRIC: Denies any suicidal or homicidal ideation. Denies hallucinations. . 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, 04/2024, POA Leukocytosis, POA Recent fall, POA Debility/frailty, POA History of anticoagulation with Eliquis as outpatient, POA Underlying history of atrial fibrillation, POA Underlying history of cardiomyopathy with LV EF of 35-40%, POA CKD stage IIIA, POA Hypertension, POA Hyperlipidemia, POA Octogenarian, POA Home Medications: Active Scripts Levothyroxine Sodium (Synthroid 50 Mcg Tab) 50 Mcg Tablet, 50 MCG PO SYN for 30 Days, #30 TAB Prov:WILLIAM CESAR NP 05/03/24 Cilostazol (Cilostazol) 100 Mg Tablet, 100 MG PO DAILY for 30 Days, #30 TAB Prov:WILLIAM CESAR NP 05/03/24 Reported Medications Calcium Carbonate/Vitamin D3 (Calcium 600 + Vit D 400 Softgl) 600 Mg Calcium-10 Mcg (400 Unit) Capsule, 1 EACH PO DAILY, CAP 06/02/24 Torsemide (Torsemide) 10 Mg Tablet, 1 TAB PO DAILY for 30 Days, #30 TAB 0 Refills 06/02/24 Povidone-Iodine (Povidone Iodine) 100 % Powder, 1 GM MC AD, APPL 04/25/24 [Duoneb] No Conflict Check, 1 UNIT IH Q6HPRN 04/25/24 Spironolactone (Spironolactone) 25 Mg Tablet, 1 TAB PO DAILY for 30 Days, #30 TAB 0 Refills 04/25/24 Metoprolol Succinate (Metoprolol Succinate) 25 Mg Tab.er.24h, 1 TAB PO DAILY for 30 Days, #30 TAB 0 Refills 04/25/24 Montelukast Sodium (Montelukast Sodium) 10 Mg Tablet, 1 TAB PO HS for 30 Days, #30 TAB 0 Refills 04/25/24 Atorvastatin Calcium (Atorvastatin Calcium) 20 Mg Tablet, 1 TAB PO HS for 30 Days, #30 TAB 0 Refills 04/25/24 Duloxetine HCl (Duloxetine HCl) 30 Mg Capsule.dr, 1 CAP PO DAILY for 30 Days, #30 CAP 0 Refills 04/25/24 Testosterone (Androgel) 20.25 Mg/1.25 Gram (1.62 %) Gel.packet, 1.25 GM TD AD 04/25/24 [Empaglifozin] No Conflict Check, 12.5 MG PO DAILY 04/25/24 Amiodarone HCl (Amiodarone HCl) 200 Mg Tablet, 1 TAB PO BID for 30 Days, #30 TAB 0 Refills 04/25/24 Aspirin (Aspirin EC) 81 Mg Tablet.dr, 81 MG PO DAILY, TAB 04/06/23 Pantoprazole Sodium (Pantoprazole Sodium) 40 Mg Tablet.dr, 40 MG PO DAILY, TAB 04/06/23 Fexofenadine HCl (Fexofenadine HCl) 180 Mg Tablet, 180 MG PO DAILY, TAB 04/06/23 Magnesium Oxide (Mag-Oxide) 400 Mg (241.3 Mg Magnesium) Tablet, 400 MG PO DAILY, TAB 04/06/23 Acetaminophen (Tylenol) 500 Mg Tab, 500 MG PO Q6HPRN PRN for PAIN LEVEL 1 TO 5, TAB 07/17/22 Levothyroxine Sodium (Levothroid/Synthroid) 50 Mcg Tab, 50 MCG PO DAILY, TAB 07/05/18 Prazosin HCl (Prazosin HCl) 1 Mg Capsule, 2 MG PO HS, CAP 07/05/18 Atorvastatin Calcium (LIPITOR) 40 Mg Tablet, 20 MG PO HS, TAB 07/05/18 Montelukast Sodium (Singulair) 10 Mg Tablet, 10 MG PO HS, TAB 07/05/18 Multivitamin (Multi Vitamin Daily) 1 Each Tablet, 1 EACH PO DAILY, TAB 07/03/16 Calcium Carbonate (Calcium Carbonate 600 mg Tab) 600 Mg/Tab Tablet, 600 MG PO DA SRINIVASAN, TAB 03/12/16 Apixaban (Eliquis) 5 Mg Tablet, 5 MG PO BID, TAB 04/18/15 Time spent arranging discharge: 31-60 minutes ATTESTATION BY PHYSICIAN I have seen and examined the patient. I reviewed the documentation, medical decision making, and treatment plan as noted by the mid-level provider above. I agree with the findings and plan of care. MD GEORGE Farmer [facility] Jun 05, 2024 13:32
--- NOTE | 2024-06-05 14:41 | NUR ---
PATIENT D/C HOME. DAUGHTER AT BEDSIDE. ALL MEDICATIONS AND APPOINTMENT FOLLOW UPS REVIEWED WITH PATIENT AND DAUGHTER. VERBALIZED UNDERSTANDING. NO QUESTIONS AT THIS TIME. [A
[2024-06-06] VITALS (8 sets, daily range): BP systolic 103–121; BP diastolic 57–78; PULSE 69–90; RESP 17–20; TEMP 97.3–98.1; O2SAT 94–96
--- NOTE | 2024-06-06 09:04 | NUR ---
DC PLAN SPOKE TO NURSE AND TO WESLY ARRINGTON. THERE WAS ORDER FOR DC FOR SNF. EXPLAINED THAT IT HAD BEEN ON HOLD UNTIL DR. Ni ROUNDED FOR ABX LENGTH AND NEED SAID ORDER IN CHART. ORDER PLACED THIS AFTERNOON 06/05 AND HAD NOT BEEN SENT TO FACILITY YET. [facility] NOT OPEN TILL FRIDAY. NURSE AND GLASS CLEANER VERBALIZED UNDERSTANDING. CM SPOKE TO PATIENT EXPLAINED IV ABX NEED FOR 10 DAYS GOT CONSENT FOR [facility] SAID IS THERE. MERNA SIGNED AND PLACED IN CHART. PACKET WILL BE SENT TO [place]. NOT OPEN TILL FRIDAY. Addendum: 06/06/24 at 0910 by HONEY GABRIEL RN CM Amended: Links added.
--- NOTE | 2024-06-06 12:41 | PN ---
[facility] PROGRESS NOTE Date of Service: Jun 06, 2024 Time of Service: 12:[address] Farmer SUBJECTIVE: [ 06/02 78-year-old male with underlying history of hypertension, hyperlipidemia, history of COPD, coronary artery disease, underlying history of cardiomyopathy w/LVEF 35-40% , who presented to the ER for further evaluation of redness and swelling involving the 1st toe of the right foot along with progressive erythema extending from the foot to the right leg. Daughter is present at bedside who assisted with further history, patient earlier in the morning had a fall where he landed on his hip. Denies syncopal episode or denies hitting his head or any head injuries. Patient states that he has been feeling weak and daughter noticed that right 1st toe was significantly red, swollen with concerns for blister. Patient denies any focal weakness of upper or lower extremities. Was recently hospitalized in [facility] and discharged on 05/03/2024 where he was found to have gangrene of the 2nd toe of the left foot and underwent amputation of the left 2nd toe by Dr. Christianson. Patient states that he has been healing well from the surgery involving the left toe. His last fall was about 3-4 months ago in daughter denies any previous history of stroke or head injury previously. On presentation to the hospital, patient was noted to be afebrile with T-max of 98.1 F, heart rate of 82, blood pressure of 126/68. [place] [address], hemoglobin of 13.6, platelet count of 236514. CMP remarkable for sodium of 141, potassium 4.2, BUN of 29, creatinine of 1.4, lactic acid of 1.3, CRP of 88. X-ray of the toe showed no evidence of osteomyelitis. Patient underwent venous Doppler Doppler of the lower extremity which showed no evidence of DVT. Patient will be admitted for further management of developing complicated ascending cellulitis involving the right great toe progressing to the foot and right leg. Patient will receive broad-spectrum antibiotics with vanc and cefepime. Given underlying history of cardiomyopathy and CKD, we will be conservative with IV fluids and monitor volume status closely. Consultation with Podiatry and Infectious Disease will be requested. We will have Physical therapy evaluate this patient tomorrow. 06/03 patient was seen by nurse practitioner and physician during rounding in room 406 comfortably lying in the bed. Toe x-ray showed no evidence of osteomyelitis. Per Dr. Christianson we will wait for the results of culture of the right great toe wound. We will continue IV antibiotics vancomycin and cefepime. Medihoney and Hydrofera blue dressings to be applied. MRI is unable to be performed due to patient has a pacemaker. We are pending further recommendation/evaluation by ID. We will continue to monitor patient in the meantime. A.m. labs. PT work with the patient and is recommending sniff. Per patient he would like to go to [facility]. Case management consulted 06/04 patient was seen by nurse practitioner and physician during rounding in one for 0 six. Id is recommending bone scan to evaluate for osteomyelitis. We will continue antibiotics as ordered Maxipime and vanco. Case management consulted for sniff versus home. We will continue to monitor patient in the meantime. A.m. labs. 06/05 patient was seen by nurse practitioner and physician during rounding in room for 0 six. Patient was already accepted to [facility] yesterday but unfortunately antibiotics through IV were ordered by ID in the afternoon and case management was not able to sent to [facility] because they were already closed. They will open on Friday. Anticipated discharge on Friday06/07/2024. In the meantime we will continue to monitor patient. A.m. labs] REVIEW OF SYSTEMS CONSTITUTIONAL: Fatigue, malaise, asthenia NEUROLOGICAL: Denies headache, amaurosis fugax, motor weakness, sensory deficit, vertigo/spinning sensation, gait abnormalities, or tremors. ENT: No hearing loss, otalgia, otorrhea, rhinitis, rhinorrhea, hoarseness, or sore throat. CARDIOVASCULAR: Denies any exertional angina, dyspnea on exertion, orthopnea, paroxysmal nocturnal dyspnea, palpitations, life-threatening arrhythmias, claudication. PULMONARY: Denies any shortness of breath, cough, phlegm/sputum, hemoptysis, pleuritic chest pain. SLEEP: Denies morning headaches, daytime somnolence or napping. Denies difficulty falling asleep, staying asleep, waking from sleep. Denies knowledge of snoring. GASTROINTESTINAL: Denies any type of dysphagia to either liquids or solids. Denies nausea, vomiting, pyrosis, early satiety, abdominal pain, diarrhea, constipation, or changes in stool consistency or caliber. Denies coffee-ground emesis, hematemesis, hematochezia, or melanotic stools. GENITOURINARY: Denies frequency, urgency, nocturia, hematuria or incontinence (Storage/Irritative symptoms.) Low urinary stream, straining to void, urinary intermittency or hesitancy, splitting of the voiding stream, terminal dribbling. ENDOCRINOLOGIC: Denies polyuria, polydipsia, polyphagia or heat/cold intolerances. HEMATOLOGIC: Denies thrombophilia/previous clots, or coagulopathy/bleeding disorders. ONCOLOGIC: Denies personal history of malignancy. DERMATOLOGIC: Redness of the 1st great toe with swelling and erythema and streaking involving the right foot and leg PSYCHIATRIC: Denies any suicidal or homicidal ideation. Denies hallucinations. PHYSICAL EXAM GENERAL APPEARANCE: The patient is awake, alert, and oriented, in no acute cardiopulmonary distress. NEUROLOGICAL: Cranial nerves II-XII grossly intact. Motor is 5/5 in bilateral upper and lower extremities proximal to distal. No sensory deficits. HEENT: Face is symmetric. Pupils are equal and reactive. Extraocular movements are intact. NECK: Supple. No JVD. No thyromegaly. No submental, submandibular, pre- /postauricular, occipital or supraclavicular lymphadenopathy. CHEST: Normal chest expansion. No Telemetry. LUNGS: Minimal crackles noted of bilateral lung bases CARDIOVASCULAR: Regular. S1 and S2 normal. No appreciable rubs, murmurs or gallops. ABDOMEN: Soft, nontender, and nondistended. There is no rebound, voluntary guarding, or rigidity. : Deferred. No King. EXTREMITIES: The great toe of the right foot is tender, swollen, with maceration noted of the skin, erythema is involving the right foot and extending into the legs SKIN: No skin breakdown. Vital Signs (last 8hr) Date Time Temp Pulse Resp B/P (MAP) Pulse Ox O2 Delivery O2 Flow Rate FiO2 06/06/24 12:00 97.7 90 18 103/61 100 Room Air 06/06/24 08:00 95 Room Air* 0 21 06/06/24 08:00 97.9 88 18 115/77 95 Room Air 06/06/24 06:53 84 18 N/A Room Air 06/06/24 06:53 84 18 LABS: Laboratory: Test 06/06/24 11:14 12/14/24 09:00 06/05/24 04:04 Range/Units Whole Blood Glucose 128 H 70-110 MG/DL Vancomycin Level Trough 8.2 #L 10.0-20.0 UG/ML White Blood Count 6.2 4.8-10.8 K/uL Red Blood Count 4.16 L 4.50-6.20 MIL/uL Hemoglobin 12.8 L 14.0-18.0 g/dL Hematocrit 39.5 L 42-54 % Mean Corpuscular Volume 95.0 79-99 fL Mean Corpuscular Hemoglobin 30.8 27.0-33.0 pg Mean Corpuscular Hemoglobin Concent 32.4 32.0-36.0 g/dL Red Cell Distribution Width 14.6 11.0-15.5 % Platelet Count 163 130-400 K/uL Mean Platelet Volume 11.1 H 7.5-10.5 fL Immature Granulocyte % (Auto) 0.5 0-1 % Neutrophils (%) (Auto) 59.1 40.0-77.0 % Lymphocytes (%) (Auto) 18.4 L 21.0-51.0 % Monocytes (%) (Auto) 21.3 H 3.0-13.0 % Eosinophils (%) (Auto) 0.2 0.0-8.0 % Basophils (%) (Auto) 0.5 0.0-5.0 % Neutrophils # (Auto) 3.7 1.8-7.7 K/uL Lymphocytes # (Auto) 1.2 1.0-4.8 K/uL Monocytes # (Auto) 1.3 H 0.1-1.0 K/uL Eosinophils # (Auto) 0.01 0.00-0.70 K/uL Basophils # (Auto) 0.03 0.00-0.20 K/uL Absolute Immature Granulocyte (auto 0.03 0-1 K/uL Nucleated Red Blood Cells 0.0 0.0-0.19 % Sodium Level 141 136-145 mmol/L Potassium Level 3.8 3.5-5.1 mmol/L Chloride Level 104 101-111 mmol/L Carbon Dioxide Level 27 21-32 mmol/L Blood Urea Nitrogen 31 H 7-18 mg/dL Creatinine 1.5 H 0.5-1.3 mg/dL Glomerular Filtration Rate Calc 47 >90 mL/min Random Glucose 95 70-105 mg/dL Total Calcium 8.3 L 8.5-10.1 mg/dL Magnesium Level 2.00 1.80-2.40 mg/dL Total Bilirubin 0.5 0.2-1.0 mg/dL Aspartate Amino Transf (AST/SGOT) 38 H 10-37 U/L Alanine Aminotransferase (ALT/SGPT) 31 12-78 U/L Alkaline Phosphatase 95 50-136 U/L Total Protein 6.4 6.0-8.3 g/dL Albumin 2.6 L 3.5-5.0 g/dL Current Medications Medications (Trade) Dose Ordered Sig/Kika Route PRN Reason Start Time Stop Time Status Last Admin Dose Admin Acetaminophen (TYLenol 325MG TAB) 650 mg Q6H PRN PO MILD PAIN (1-3) 06/02/24 10:30 07/02/24 10:29 06/03/24 10:51 650 MG Amiodarone HCl (pacERONE 200MG) 200 mg Q12H PO 06/02/24 11:00 07/02/24 10:59 06/06/24 11:54 200 MG Apixaban (EliquIS) 5 mg BID PO 06/02/24 21:00 07/02/24 20:59 06/06/24 08:28 5 MG Aspirin (Aspirin 81mg Ec Tab) 81 mg DAILY PO 06/03/24 09:00 07/03/24 08:59 06/06/24 08:28 81 MG Atorvastatin Calcium (LIPItor 20MG) 20 mg HS PO 06/02/24 21:00 07/02/24 20:59 06/05/24 21:35 20 MG Budesonide (Pulmicort 0.5 Mg/2ml) 0.5 mg Q12H IH 06/02/24 11:30 06/02/24 11:47 DC Budesonide (Pulmicort 0.5 Mg/2ml) 0.5 mg Q12H IH 06/02/24 18:00 07/02/24 17:59 06/06/24 06:52 0.5 MG Cefepime HCl (MAXipime 2 gm vial) 2 gm DAILY IVPB 06/02/24 14:00 06/05/24 11:29 DC 06/05/24 09:21 2 GM Ceftriaxone Sodium (ROCEphine 1G INJ) 1 gm Q24H IVPB 06/05/24 11:30 06/15/24 11:29 06/06/24 11:54 1 GM Duloxetine HCl (CymbALTA 30 mg CAP) 30 mg Q24H PO 06/02/24 11:00 07/02/24 10:59 06/06/24 11:54 30 MG Home Med (Home Medication) Calcium Carbonate/ Vitamin... DAILY PO 06/03/24 09:00 07/03/24 08:59 Home Med (Home Medication) Fexofenadine HCl 180 MG DAILY PO 06/03/24 09:00 07/03/24 08:59 Home Med (Home Medication) Prazosin HCl 2 MG HS PO 06/02/24 21:00 07/02/24 20:59 Insulin Human Regular (humuLIN R 100 UNIT/ML 3ML) INSULIN SLIDING SCAL... ACHS SQ 06/02/24 11:30 07/02/24 11:29 Ipratropium [place] (AtrovENT UD) 0.5 mg Q6H PRN IH SHORTNESS OF BREATH 06/02/24 11:30 07/02/24 11:29 Leptospermum Honey (Medihoney) 1 APPL DAILY TP 06/04/24 09:00 07/04/24 08:59 06/04/24 18:49 1 APPL Magnesium Oxide (Mag-Ox) 400 mg DAILY PO 06/03/24 09:00 07/03/24 08:59 06/06/24 08:29 400 MG Magnesium Sulfate 50 ml @ 0 mls/hr PROTOCOL IV 06/02/24 11:00 07/02/24 10:59 Metoprolol Succinate (TopROL XL) 25 mg Q24H PO 06/02/24 11:00 07/02/24 10:59 06/06/24 11:54 25 MG Montelukast Sodium (SinguLAIR) 10 mg HS PO 06/02/24 21:00 07/02/24 20:59 06/05/24 21:36 10 MG Multivitamins/ Minerals (Centrum) 1 tab DAILY PO 06/03/24 09:00 07/03/24 08:59 06/06/24 08:28 1 TAB Pantoprazole Sodium (PROTonix 40MG TAB) 40 mg DAILY PO 06/03/24 09:00 07/03/24 08:59 06/06/24 08:28 40 MG Pharmacy Profile Note (Pharmacy Communication) 1 each ONCE MISC 06/02/24 11:00 06/04/24 07:19 DC 06/03/24 11:08 1 EACH Potassium Chloride 100 ml @ 100 mls/hr AD PRN IV POTASSIUM PROTOCOL 06/03/24 06:00 07/03/24 05:59 Potassium Chloride (K-Dur/Klor-Con 20meq) 20 meq AD PRN PO POTASSIUM PROTOCOL 06/03/24 06:00 07/03/24 05:59 06/04/24 09:21 20 MEQ Potassium Chloride (KCl 10% Elixir 20meq/15ml) 20 meq AD PRN PO POTASSIUM PROTOCOL 06/03/24 06:00 07/03/24 05:59 06/03/24 19:52 20 MEQ Spironolactone (Aldactone 25mg) 25 mg DAILY PO 06/03/24 09:00 07/03/24 08:59 06/06/24 08:28 25 MG Torsemide (Demadex) 10 mg DAILY PO 06/03/24 09:00 07/03/24 08:59 06/06/24 08:29 10 MG Vancomycin HCl 250 ml @ 125 mls/hr Q24H IV 06/03/24 10:00 06/05/24 09:59 DC 06/04/24 11:42 125 MLS/HR Vancomycin HCl 250 ml @ 125 mls/hr Q24H IV 06/05/24 10:00 06/05/24 11:29 DC 06/05/24 11:02 125 MLS/HR Vancomycin HCl (Vancomycin Protocol) 1 each AD IV 06/02/24 09:00 06/05/24 11:29 DC DIAGNOSTICS / RADIOLOGY: [ ] ASSESSMENT: Progressive complicated ascending cellulitis of the 1st toe, right foot extending into the ascending cellulitis right leg, POA 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 I reviewed the documentation, medical decision making, and treatment plan as noted by the mid-level provider above. I agree with the findings and plan of care. Margarita Farmer MD, [facility] [employer] Jun 06, 2024 12:41
--- NOTE | 2024-06-06 13:54 | PN ---
INFECTIOUS DISEASE PROGRESS NOTE Date of Service: Jun 06, 2024 SUBJECTIVE: This is an 78-year-old male patient who was seen and examined at bedside in room 406. Patient is awake, alert and oriented x 3. Patient continues on vancomycin and cefepime IV. No reports of fever, current temperature is 97.9. Denying nausea or vomiting. Will continue to monitor patient's care. No other issues reported by nursing. PHYSICAL EXAM EYES: Anicteric. Pupils equal and reactive. HENT: No oral thrush seen, moist Oral mucosa. NECK: Supple, no JVD or thyromegaly. LUNGS: Good air entry. No rales, no rhonchi. CARDIOVASCULAR: S1, S2 regular. No murmur heard. ABDOMEN: Soft, non tender, bowel sounds present, no organomegaly. CENTRAL NERVOUS SYSTEM: Awake, alert, oriented x 3. SKIN: No rashes, no swelling. LYMPHATICS: No peripheral lymphadenopathy. MUSCULOSKELETAL: No joint swelling, erythema or tenderness. EXTREMITIES: No cyanosis or clubbing. Right great toe ulcer. BACK: No deformity, no pressure ulcer. GENITOURINARY: No dysuria or hematuria. Vital Sign (Last 12 Hours) 06/06/24 06/06/24 06/06/24 06/06/24 04:00 06:53 06:53 08:00 Temp 97.9 97.9 Pulse 80 84 84 88 Resp 20 18 18 18 B/P (MAP) 113/76 115/77 Pulse Ox 93 95 O2 Delivery Room Air N/A Room Air Room Air FiO2 21 06/06/24 06/06/24 08:00 12:00 Temp 97.7 Pulse 90 Resp 18 B/P (MAP) 103/61 Pulse Ox 95 100 O2 Delivery Room Air* Room Air O2 Flow Rate 0 FiO2 21 Intake & Output (last 24hrs) 06/05/24 06/05/24 06/06/24 15:00 23:00 07:00 Intake Total 440 ml 220 ml Output Total 500 ml 1100 ml 700 ml Balance -60 ml -880 ml -700 ml LABS: Laboratory: Test 06/06/24 11:14 06/05/24 09:00 06/05/24 04:04 Range/Units Whole Blood Glucose 128 H 70-110 MG/DL Vancomycin Level Trough 8.2 #L 10.0-20.0 UG/ML White Blood Count 6.2 4.8-10.8 K/uL Red Blood Count 4.16 L 4.50-6.20 MIL/uL Hemoglobin 12.8 L 14.0-18.0 g/dL Hematocrit 39.5 L 42-54 % Mean Corpuscular Volume 95.0 79-99 fL Mean Corpuscular Hemoglobin 30.8 27.0-33.0 pg Mean Corpuscular Hemoglobin Concent 32.4 32.0-36.0 g/dL Red Cell Distribution Width 14.6 11.0-15.5 % Platelet Count 163 130-400 K/uL Mean Platelet Volume 11.1 H 7.5-10.5 fL Immature Granulocyte % (Auto) 0.5 0-1 % Neutrophils (%) (Auto) 59.1 40.0-77.0 % Lymphocytes (%) (Auto) 18.4 L 21.0-51.0 % Monocytes (%) (Auto) 21.3 H 3.0-13.0 % Eosinophils (%) (Auto) 0.2 0.0-8.0 % Basophils (%) (Auto) 0.5 0.0-5.0 % Neutrophils # (Auto) 3.7 1.8-7.7 K/uL Lymphocytes # (Auto) 1.2 1.0-4.8 K/uL Monocytes # (Auto) 1.3 H 0.1-1.0 K/uL Eosinophils # (Auto) 0.01 0.00-0.70 K/uL Basophils # (Auto) 0.03 0.00-0.20 K/uL Absolute Immature Granulocyte (auto 0.03 0-1 K/uL Nucleated Red Blood Cells 0.0 0.0-0.19 % Sodium Level 141 136-145 mmol/L Potassium Level 3.8 3.5-5.1 mmol/L Chloride Level 104 101-111 mmol/L Carbon Dioxide Level 27 21-32 mmol/L Blood Urea Nitrogen 31 H 7-18 mg/dL Creatinine 1.5 H 0.5-1.3 mg/dL Glomerular Filtration Rate Calc 47 >90 mL/min Random Glucose 95 70-105 mg/dL Total Calcium 8.3 L 8.5-10.1 mg/dL Magnesium Level 2.00 1.80-2.40 mg/dL Total Bilirubin 0.5 0.2-1.0 mg/dL Aspartate Amino Transf (AST/SGOT) 38 H 10-37 U/L Alanine Aminotransferase (ALT/SGPT) 31 12-78 U/L Alkaline Phosphatase 95 50-136 U/L Total Protein 6.4 6.0-8.3 g/dL Albumin 2.6 L 3.5-5.0 g/dL ASSESSMENT: Right great toe ulcer infection with Streptococcus group G. Right foot cellulitis. Leukocytosis, resolving. Peripheral vascular disease. Atrial fibrillation, on anticoagulation. PLAN: Continue vancomycin per pharmacy protocol. Continue cefepime IV. Continue GI prophylaxis Continue wound care as recommended by Dr. Christianson. Continue monitoring glucose levels. Continue antiarrhythmics. Will Monitor electrolytes. This case was reviewed and discussed with my supervising physician and the above assessment and plan was formulated and agreed upon. ATTESTATION BY PHYSICIAN I have seen and examined the patient. I reviewed the documentation, medical decision making, and treatment plan as noted by the mid-level provider above. I agree with the findings and plan of care. ELVIS HADDAD MD, [facility] Jun 06, 2024 13:54
--- NOTE | 2024-06-06 14:42 | NUR ---
VIVIEN NOTE: [facility] PENDING APPROVAL PREVIOUS CM ASSIGNED OBTAINED CONSENT MERNA FOR [facility]. VIVIEN SENT ORDER, CLINICALS, PT TO [facility] VIA SECURE FAX AND EMAIL, CONFIRMATION RECEIVED. FRANNY Metzger/MAGDALENO ALSO GIVEN A HEADS UP VIA SECURE EMAIL. PENDING REP RESPONSE. PT PENDING APPROVAL, SAFE TO GO VIA VAN. CM TO CONTINUE TO FOLLOW UP. Addendum: 06/06/24 at 1445 by SUMMER LITTLE LVN CM Amended: Links added.
--- NOTE | 2024-06-06 16:12 | PN ---
SUBJECTIVE: The patient is a very pleasant 78-year-old diabetic, Latin-Kittitian male. White count 6.2, H and H 12.8 and 39.5, platelets 163. BUN 31, creatinine 1.5, albumin 2.6, neutrophils 59.8. Currently receiving IV vancomycin. He is nondiabetic. He has been followed for an ulcer to the great toe on the right. He has been followed for an amputation sites of the left second toe. He is currently receiving the ceftriaxone IV and the IV vancomycin has been discontinued. He is receiving Medihoney dressings. REVIEW OF SYSTEMS: CONSTITUTIONAL: No chills, no fevers, no night sweats, no nausea, vomiting, no diarrhea. HEENT: No problems with his eyes, ears, nose or throat. CARDIOVASCULAR: Having no current chest pain. RESPIRATORY: No shortness of breath. GENITOURINARY: No dysuria. GASTROINTESTINAL: No dysphagia. ENDOCRINE: Diabetes. PSYCHIATRIC: Denied any depression. MUSCULOSKELETAL: Bunions and hammertoe deformities. INTEGUMENT: He has an incision site that is well coapted to the second ray amputation site on the left. On the right, he has an ulcer 15 x 15 x 1 mm to the dorsum of the interphalangeal joint, right great toe. He has decreased edema, decreased erythema, decreased cellulitis to the foot, ankle and leg. He has palpable pedal pulses. He has absent protective sensation. He has a well-healed second toe amputation on the left. On the right, he has an ulcer 15 x 15 x 1 to the dorsal interphalangeal joint of the right great toe, 1-2 mm in depth. There is edema, erythema, cellulitis to the medial foot, medial ankle, medial leg on the right. ASSESSMENT: Healed second toe amputation site on the left, ulcer with cellulitis, improving to the right great toe. PLAN: We will continue with the IV ceftriaxone. Awaiting results of the bone scan. Continue with the Medihoney dressings. Follow up the patient closely while in-house. TID: [id number] RECEIPT: [id number]
[2024-06-07] VITALS (9 sets, daily range): BP systolic 94–118; BP diastolic 54–73; PULSE 80–84; RESP 18–20; TEMP 97.5–98; O2SAT 96–97
[2024-06-07 04:33] LABS: BASOPHILS # (AUTO) 0.03 K/uL (0.00-0.20); BASOPHILS % (AUTO) 0.4 % (0.0-5.0); EOSINOPHILS # (AUTO) 0.05 K/uL (0.00-0.70); EOSINOPHILS % (AUTO) 0.7 % (0.0-8.0); HEMATOCRIT 42.6 % (42-54); IMMATURE GRANULOCYTE ABSOLUTE 0.03 K/uL (0-1); LYMPHOCYTES # (AUTO) 1.7 K/uL (1.0-4.8); LYMPHOCYTES % (AUTO) 21.9 % (21.0-51.0); MEAN CORPUSCULAR HEMOGLOBIN 30.8 pg (27.0-33.0); MEAN CORPUSCULAR HGB CONC 32.6 g/dL (32.0-36.0); MEAN CORPUSCULAR VOLUME 94.5 fL (79-99); MONOCYTES # (AUTO) 0.8 K/uL (0.1-1.0); MONOCYTES % (AUTO) 11.1 % (3.0-13.0); NEUTROPHILS # (AUTO) 4.9 K/uL (1.8-7.7); NEUTROPHILS % (AUTO) 65.5 % (40.0-77.0); PLATELET COUNT (AUTO) 189 K/uL (130-400); RED BLOOD CELL COUNT(AUTO) 4.51 MIL/uL (4.50-6.20); RED CELL DISTRIBUTION WIDTH 14.3 % (11.0-15.5); WHITE BLOOD COUNT (AUTO) 7.5 K/uL (4.8-10.8)
[2024-06-07 04:54] LABS: ALBUMIN 2.6 g/dL (3.5-5.0); BILIRUBIN,TOTAL 0.5 mg/dL (0.2-1.0); CREATININE 1.4 mg/dL (0.5-1.3); POTASSIUM 3.7 mmol/L (3.5-5.1); TOTAL PROTEIN, SERUM 6.7 g/dL (6.0-8.3)
--- NOTE | 2024-06-07 06:28 | PN ---
SUBJECTIVE: The patient is an 78-year-old nondiabetic, Latin-Omani male. The patient had a bone scan performed and the results of the bone scan that was performed showed cellulitis, no osteomyelitis to the right foot. Venous Doppler was negative for DVT. Plan is for the patient will be transferred to the [facility] for continuation of IV antibiotics. Cultures, streptococcus Group G. Blood cultures, no growth x4 days. The patient is currently afebrile at 97.9, pulse 84, respiration 20, blood pressure 107/68. White count of 7.5, H and H 13.9 and 42.6, platelets 189. REVIEW OF SYSTEMS: CONSTITUTIONAL: No constitutional symptoms. HEENT: No problems with eyes, ears, nose or throat. CARDIOVASCULAR: He is having no current chest pain. RESPIRATORY: No shortness of breath. GENITOURINARY: No dysuria. GASTROINTESTINAL: No dysphagia. ENDOCRINE: No diabetes. PSYCHIATRIC: Denied any depression. MUSCULOSKELETAL: Bunions and hammertoes. INTEGUMENT: He has incision site well coapted to the second ray amputation on the left. He has an ulcer 15 x 15 x 1 mm to the dorsal interphalangeal joint of the right great toe, decreased edema, decreased erythema, decreased cellulitis. Absent protective sensation to his feet bilaterally. OBJECTIVE: On examination today shows feet are warm. He has palpable pedal pulses. Incision site well coapted to the second ray amputation on the left, ulcer dorsal proximal interphalangeal joint, right great toe, 15 x 15 x 1 mm, decreased edema, decreased erythema, decreased cellulitis. ASSESSMENT: Bone scan negative for osteomyelitis to the right foot, healed second ray amputation on the left. Ulcer, improving dorsal aspect of the right great toe. PLAN: Medihoney dressings to the dorsal ulcer on the right great toe. Continue with the IV ceftriaxone. Betadine dressings to the surgical site of the second toe on the left. Anticipate transfer to a long-term acute care facility for continuation of IV antibiotics and local wound care. TID: [id number] RECEIPT: [id number]
--- NOTE | 2024-06-07 13:25 | PN ---
[facility] PROGRESS NOTE Date of Service: Jun 07, 2024 Time of Service: 13:[address] Bird SUBJECTIVE: [ 06/02 78-year-old male with underlying history of hypertension, hyperlipidemia, history of COPD, coronary artery disease, underlying history of cardiomyopathy w/LVEF 35-40% , who presented to the ER for further evaluation of redness and swelling involving the 1st toe of the right foot along with progressive erythema extending from the foot to the right leg. Daughter is present at bedside who assisted with further history, patient earlier in the morning had a fall where he landed on his hip. Denies syncopal episode or denies hitting his head or any head injuries. Patient states that he has been feeling weak and daughter noticed that right 1st toe was significantly red, swollen with concerns for blister. Patient denies any focal weakness of upper or lower extremities. Was recently hospitalized in [facility] and discharged on 05/03/2024 where he was found to have gangrene of the 2nd toe of the left foot and underwent amputation of the left 2nd toe by Dr. Christianson. Patient states that he has been healing well from the surgery involving the left toe. His last fall was about 3-4 months ago in daughter denies any previous history of stroke or head injury previously. On presentation to the hospital, patient was noted to be afebrile with T-max of 98.1 F, heart rate of 82, blood pressure of 126/68. [place] [address], hemoglobin of 13.6, platelet count of [id number]. CMP remarkable for sodium of 141, potassium 4.2, BUN of 29, creatinine of 1.4, lactic acid of 1.3, CRP of 88. X-ray of the toe showed no evidence of osteomyelitis. Patient underwent venous Doppler Doppler of the lower extremity which showed no evidence of DVT. Patient will be admitted for further management of developing complicated ascending cellulitis involving the right great toe progressing to the foot and right leg. Patient will receive broad-spectrum antibiotics with vanc and cefepime. Given underlying history of cardiomyopathy and CKD, we will be conservative with IV fluids and monitor volume status closely. Consultation with Podiatry and Infectious Disease will be requested. We will have Physical therapy evaluate this patient tomorrow. 06/03 patient was seen by nurse practitioner and physician during rounding in room 406 comfortably lying in the bed. Toe x-ray showed no evidence of osteomyelitis. Per Dr. Christianson we will wait for the results of culture of the right great toe wound. We will continue IV antibiotics vancomycin and cefepime. Medihoney and Hydrofera blue dressings to be applied. MRI is unable to be performed due to patient has a pacemaker. We are pending further recommendation/evaluation by ID. We will continue to monitor patient in the jose ntime. A.m. labs. PT work with the patient and is recommending sniff. Per patient he would like to go to [facility]. Case management consulted 06/04 patient was seen by nurse practitioner and physician during rounding in one for 0 six. Id is recommending bone scan to evaluate for osteomyelitis. We will continue antibiotics as ordered Maxipime and vanco. Case management consulted for sniff versus home. We will continue to monitor patient in the meantime. A.m. labs. 06/05 patient was seen by nurse practitioner and physician during rounding in room 406. Patient was already accepted to [facility] yesterday but unfort unately antibiotics through IV were ordered by ID in the afternoon and case management was not able to sent to [place] because they were already closed. They will open on Friday. Anticipated discharge on Friday06/07/2024. In the meantime we will continue to monitor patient. A.m. labs 06/06 patient was accepted to [facility]. Nurse practitioner reviewed all the labs and results and patient is cleared to be transferred to half-way. Patient denies any shortness of breath, chest pain, nausea, vomiting or any other discomfort. Continue antibiotics as prescribed by ID] REVIEW OF SYSTEMS CONSTITUTIONAL: Fatigue, malaise, asthenia NEUROLOGICAL: Denies headache, amaurosis fugax, motor weakness, sensory deficit, vertigo/spinning sensation, gait abnormalities, or tremors. ENT: No hearing loss, otalgia, otorrhea, rhinitis, rhinorrhea, hoarseness, or sore throat. CARDIOVASCULAR: Denies any exertional angina, dyspnea on exertion, orthopnea, paroxysmal nocturnal dyspnea, palpitations, life-threatening arrhythmias, claudication. PULMONARY: Denies any shortness of breath, cough, phlegm/sputum, hemoptysis, pleuritic chest pain. SLEEP: Denies morning headaches, daytime somnolence or napping. Denies difficulty falling asleep, staying asleep, waking from sleep. Denies knowledge of snoring. GASTROINTESTINAL: Denies any type of dysphagia to either liquids or solids. Denies nausea, vomiting, pyrosis, early satiety, abdominal pain, diarrhea, constipation, or changes in stool consistency or caliber. Denies coffee-ground emesis, hematemesis, hematochezia, or melanotic stools. GENITOURINARY: Denies frequency, urgency, nocturia, hematuria or incontinence (Storage/Irritative symptoms.) Low urinary stream, straining to void, urinary intermittency or hesitancy, splitting of the voiding stream, terminal dribbling. ENDOCRINOLOGIC: Denies polyuria, polydipsia, polyphagia or heat/cold intolerances. HEMATOLOGIC: Denies thrombophilia/previous clots, or coagulopathy/bleeding disorders. ONCOLOGIC: Denies personal history of malignancy. DERMATOLOGIC: Redness of the 1st great toe with swelling and erythema and streaking involving the right foot and leg PSYCHIATRIC: Denies any suicidal or homicidal ideation. Denies hallucinations. PHYSICAL EXAM GENERAL APPEARANCE: The patient is awake, alert, and oriented, in no acute cardiopulmonary distress. NEUROLOGICAL: Cranial nerves II-XII grossly intact. Motor is 5/5 in bilateral upper and lower extremities proximal to distal. No sensory deficits. HEENT: Face is symmetric. Pupils are equal and reactive. Extraocular movements are intact. NECK: Supple. No JVD. No thyromegaly. No submental, submandibular, pre- /postauricular, occipital or supraclavicular lymphadenopathy. CHEST: Normal chest expansion. No Telemetry. LUNGS: Normal CARDIOVASCULAR: Regular. S1 and S2 normal. No appreciable rubs, murmurs or gallops. ABDOMEN: Soft, nontender, and nondistended. There is no rebound, voluntary guarding, or rigidity. : Deferred. No King. EXTREMITIES: The great toe of the right foot is tender, swollen, with maceration noted of the skin, erythema is involving the right foot and extending into the legs SKIN: No skin breakdown. Vital Signs (last 8hr) Date Time Temp Pulse Resp B/P (MAP) Pulse Ox O2 Delivery O2 Flow Rate FiO2 06/07/24 06:47 83 18 06/07/24 06:46 83 18 N/A Room Air 21 LABS: Laboratory: Test 06/07/24 11:28 06/07/24 04:08 Range/Units Whole Blood Glucose 109 70-110 MG/DL White Blood Count 7.5 4.8-10.8 K/uL Red Blood Count 4.51 4.50-6.20 MIL/uL Hemoglobin 13.9 L 14.0-18.0 g/dL Hematocrit 42.6 42-54 % Mean Corpuscular Volume 94.5 79-99 fL Mean Corpuscular Hemoglobin 30.8 27.0-33.0 pg Mean Corpuscular Hemoglobin Concent 32.6 32.0-36.0 g/dL Red Cell Distribution Width 14.3 11.0-15.5 % Platelet Count 189 130-400 K/uL Mean Platelet Volume 11.5 H 7.5-10.5 fL Immature Granulocyte % (Auto) 0.4 0-1 % Neutrophils (%) (Auto) 65.5 40.0-77.0 % Lymphocytes (%) (Auto) 21.9 21.0-51.0 % Monocytes (%) (Auto) 11.1 3.0-13.0 % Eosinophils (%) (Auto) 0.7 0.0-8.0 % Basophils (%) (Auto) 0.4 0.0-5.0 % Neutrophils # (Auto) 4.9 1.8-7.7 K/uL Lymphocytes # (Auto) 1.7 1.0-4.8 K/uL Monocytes # (Auto) 0.8 0.1-1.0 K/uL Eosinophils # (Auto) 0.05 0.00-0.70 K/uL Basophils # (Auto) 0.03 0.00-0.20 K/uL Absolute Immature Granulocyte (auto 0.03 0-1 K/uL Nucleated Red Blood Cells 0.0 0.0-0.19 % Sodium Level 139 136-145 mmol/L Potassium Level 3.7 3.5-5.1 mmol/L Chloride Level 103 101-111 mmol/L Carbon Dioxide Level 31 21-32 mmol/L Blood Urea Nitrogen 36 H 7-18 mg/dL Creatinine 1.4 H 0.5-1.3 mg/dL Glomerular Filtration Rate Calc 51 >90 mL/min Random Glucose 89 70-105 mg/dL Total Calcium 8.3 L 8.5-10.1 mg/dL Magnesium Level 2.00 1.80-2.40 mg/dL Total Bilirubin 0.5 0.2-1.0 mg/dL Aspartate Amino Transf (AST/SGOT) 28 10-37 U/L Alanine Aminotransferase (ALT/SGPT) 35 12-78 U/L Alkaline Phosphatase 108 50-136 U/L Total Protein 6.7 6.0-8.3 g/dL Albumin 2.6 L 3.5-5.0 g/dL Current Medications Medications (Trade) Dose Ordered Sig/Kika Route PRN Reason Start Time Stop Time Status Last Admin Dose Admin Acetaminophen (TYLenol 325MG TAB) 650 mg Q6H PRN PO MILD PAIN (1-3) 06/02/24 10:30 07/02/24 10:29 06/03/24 10:51 650 MG Amiodarone HCl (pacERONE 200MG) 200 mg Q12H PO 06/02/24 11:00 07/02/24 10:59 06/07/24 12:00 200 MG Apixaban (EliquIS) 5 mg BID PO 06/02/24 21:00 07/02/24 20:59 06/07/24 09:16 5 MG Aspirin (Aspirin 81mg Ec Tab) 81 mg DAILY PO 06/03/24 09:00 07/03/24 08:59 06/07/24 09:16 81 MG Atorvastatin Calcium (LIPItor 20MG) 20 mg HS PO 06/02/24 21:00 07/02/24 20:59 06/06/24 20:34 20 MG Budesonide (Pulmicort 0.5 Mg/2ml) 0.5 mg Q12H IH 06/02/24 11:30 06/02/24 11:47 DC Budesonide (Pulmicort 0.5 Mg/2ml) 0.5 mg Q12H IH 06/02/24 18:00 07/02/24 17:59 06/07/24 06:47 0.5 MG Cefepime HCl (MAXipime 2 gm vial) 2 gm DAILY IVPB 06/02/24 14:00 06/05/24 11:29 DC 06/05/24 09:21 2 GM Ceftriaxone Sodium (ROCEphine 1G INJ) 1 gm Q24H IVPB 06/05/24 11:30 06/15/24 11:29 06/07/24 12:00 1 GM Duloxetine HCl (CymbALTA 30 mg CAP) 30 mg Q24H PO 06/02/24 11:00 07/02/24 10:59 06/07/24 12:00 30 MG Home Med (Home Medication) Calcium Carbonate/ Vitamin... DAILY PO 06/03/24 09:00 07/03/24 08:59 Home Med (Home Medication) Fexofenadine HCl 180 MG DAILY PO 06/03/24 09:00 07/03/24 08:59 Home Med (Home Medication) Prazosin HCl 2 MG HS PO 06/02/24 21:00 07/02/24 20:59 Insulin Human Regular (humuLIN R 100 UNIT/ML 3ML) INSULIN SLIDING SCAL... ACHS SQ 06/02/24 11:30 07/02/24 11:29 Ipratropium [place] (AtrovENT UD) 0.5 mg Q6H PRN IH SHORTNESS OF BREATH 06/02/24 11:30 07/02/24 11:29 Leptospermum Honey (Medihoney) 1 APPL DAILY TP 06/04/24 09:00 07/04/24 08:59 06/07/24 09:17 1 APPL Magnesium Oxide (Mag-Ox) 400 mg DAILY PO 06/03/24 09:00 07/03/24 08:59 06/07/24 09:16 400 MG Magnesium Sulfate 50 ml @ 0 mls/hr PROTOCOL IV 06/02/24 11:00 07/02/24 10:59 Metoprolol Succinate (TopROL XL) 25 mg Q24H PO 06/02/24 11:00 07/02/24 10:59 06/07/24 12:00 25 MG Montelukast Sodium (SinguLAIR) 10 mg HS PO 06/02/24 21:00 07/02/24 20:59 06/06/24 20:34 10 MG Multivitamins/ Minerals (Centrum) 1 tab DAILY PO 06/03/24 09:00 07/03/24 08:59 06/07/24 09:16 1 TAB Pantoprazole Sodium (PROTonix 40MG TAB) 40 mg DAILY PO 06/03/24 09:00 07/03/24 08:59 06/07/24 09:16 40 MG Pharmacy Profile Note (Pharmacy Communication) 1 each ONCE MISC 06/02/24 11:00 06/04/24 07:19 DC 06/03/24 11:08 1 EACH Potassium Chloride 100 ml @ 100 mls/hr AD PRN IV POTASSIUM PROTOCOL 06/03/24 06:00 07/03/24 05:59 Potassium Chloride (K-Dur/Klor-Con 20meq) 20 meq AD PRN PO POTASSIUM PROTOCOL 06/03/24 06:00 07/03/24 05:59 06/04/24 09:21 20 MEQ Potassium Chloride (KCl 10% Elixir 20meq/15ml) 20 meq AD PRN PO POTASSIUM PROTOCOL 06/03/24 06:00 07/03/24 05:59 06/03/24 19:52 20 MEQ Spironolactone (Aldactone 25mg) 25 mg DAILY PO 06/03/24 09:00 07/03/24 08:59 06/07/24 12:00 25 MG Torsemide (Demadex) 10 mg DAILY PO 06/03/24 09:00 07/03/24 08:59 06/07/24 09:16 10 MG Vancomycin HCl 250 ml @ 125 mls/hr Q24H IV 06/03/24 10:00 06/05/24 09:59 DC 06/04/24 11:42 125 MLS/HR Vancomycin HCl 250 ml @ 125 mls/hr Q24H IV 06/05/24 10:00 06/05/24 11:29 DC 06/05/24 11:02 125 MLS/HR Vancomycin HCl (Vancomycin Protocol) 1 each AD IV 06/02/24 09:00 06/05/24 11:29 DC DIAGNOSTICS / RADIOLOGY: [ ] ASSESSMENT: Progressive complicated ascending cellulitis of the 1st toe, right foot extending into the ascending cellulitis right leg, POA 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 I reviewed the documentation, medical decision making, and treatment plan as noted by the mid-level provider above. I agree with the findings and plan of care. LEO BIRD MD, [facility]ATARZYNA B [facility] Jun 07, 2024 13:25
--- NOTE | 2024-06-07 13:45 | NUR ---
cm note daughter requesting to speak to cm, made visit in room and asked regarding [facility] if [facility] pending, informed still no approval, discussed with both pt and daughter regarding questions regarding possible [facility]. due to pt's spouse is there. but they are aware that the [facility] not [facility]. so final decision is to proceed with [facility] for now.. this cm called [facility] and left message for feedback.
--- NOTE | 2024-06-07 13:55 | NUR ---
cm note received call from [facility] and states they are almost finished with approval. she recommended that pt could wait for approval and go to [facility]., and can always transfer to another facility like [facility] under his medicare. discussed this with pt and also with daughter krystina over the phone. and states that she will do whatever pt wishes. pt agrees he will go to [facility], and then transfer to [facility] later on, choice letter obtained and pt and daughter aware. updated cassandra rep with [facility]. per nurse pt can go via van transport. nurse to call report to [phone] [facility].
--- NOTE | 2024-06-07 14:01 | PN ---
INFECTIOUS DISEASE PROGRESS NOTE Date of Service: Jun 07, 2024 SUBJECTIVE: This is an 78-year-old male patient who was seen and examined at bedside in room 406. Patient is awake, alert and oriented x 3. Patient continues on vancomycin and cefepime IV. No reports of fever, current temperature is 97.9. Denying nausea or vomiting. Will continue to monitor patient's care. No other issues reported by nursing. PHYSICAL EXAM EYES: Anicteric. Pupils equal and reactive. HENT: No oral thrush seen, moist Oral mucosa. NECK: Supple, no JVD or thyromegaly. LUNGS: Good air entry. No rales, no rhonchi. CARDIOVASCULAR: S1, S2 regular. No murmur heard. ABDOMEN: Soft, non tender, bowel sounds present, no organomegaly. CENTRAL NERVOUS SYSTEM: Awake, alert, oriented x 3. SKIN: No rashes, no swelling. LYMPHATICS: No peripheral lymphadenopathy. MUSCULOSKELETAL: No joint swelling, erythema or tenderness. EXTREMITIES: No cyanosis or clubbing. Right great toe ulcer. BACK: No deformity, no pressure ulcer. GENITOURINARY: No dysuria or hematuria. Vital Sign (Last 12 Hours) 06/07/24 06/07/24 06/07/24 06/07/24 04:00 06:46 06:47 08:00 Temp 97.9 97.5 Pulse 84 83 83 84 Resp 20 18 18 19 B/P (MAP) 107/68 102/54 Pulse Ox 94 95 O2 Delivery Room Air N/A Room Air Room Air FiO2 21 06/07/24 12:00 Temp 97.5 Pulse 82 Resp 19 B/P (MAP) 118/65 Pulse Ox 95 O2 Delivery Room Air Intake & Output (last 24hrs) 06/06/24 06/06/24 06/07/24 14:59 22:59 06:59 Intake Total 440 ml 220 ml Output Total 1400 ml 250 ml 200 ml Balance -960 ml -30 ml -200 ml LABS: Laboratory: Test 06/07/24 11:28 06/07/24 04:08 Range/Units Whole Blood Glucose 109 70-110 MG/DL White Blood Count 7.5 4.8-10.8 K/uL Red Blood Count 4.51 4.50-6.20 MIL/uL Hemoglobin 13.9 L 14.0-18.0 g/dL Hematocrit 42.6 42-54 % Mean Corpuscular Volume 94.5 79-99 fL Mean Corpuscular Hemoglobin 30.8 27.0-33.0 pg Mean Corpuscular Hemoglobin Concent 32.6 32.0-36.0 g/dL Red Cell Distribution Width 14.3 11.0-15.5 % Platelet Count 189 130-400 K/uL Mean Platelet Volume 11.5 H 7.5-10.5 fL Immature Granulocyte % (Auto) 0.4 0-1 % Neutrophils (%) (Auto) 65.5 40.0-77.0 % Lymphocytes (%) (Auto) 21.9 21.0-51.0 % Monocytes (%) (Auto) 11.1 3.0-13.0 % Eosinophils (%) (Auto) 0.7 0.0-8.0 % Basophils (%) (Auto) 0.4 0.0-5.0 % Neutrophils # (Auto) 4.9 1.8-7.7 K/uL Lymphocytes # (Auto) 1.7 1.0-4.8 K/uL Monocytes # (Auto) 0.8 0.1-1.0 K/uL Eosinophils # (Auto) 0.05 0.00-0.70 K/uL Basophils # (Auto) 0.03 0.00-0.20 K/uL Absolute Immature Granulocyte (auto 0.03 0-1 K/uL Nucleated Red Blood Cells 0.0 0.0-0.19 % Sodium Level 139 136-145 mmol/L Potassium Level 3.7 3.5-5.1 mmol/L Chloride Level 103 101-111 mmol/L Carbon Dioxide Level 31 21-32 mmol/L Blood Urea Nitrogen 36 H 7-18 mg/dL Creatinine 1.4 H 0.5-1.3 mg/dL Glomerular Filtration Rate Calc 51 >90 mL/min Random Glucose 89 70-105 mg/dL Total Calcium 8.3 L 8.5-10.1 mg/dL Magnesium Level 2.00 1.80-2.40 mg/dL Total Bilirubin 0.5 0.2-1.0 mg/dL Aspartate Amino Transf (AST/SGOT) 28 10-37 U/L Alanine Aminotransferase (ALT/SGPT) 35 12-78 U/L Alkaline Phosphatase 108 50-136 U/L Total Protein 6.7 6.0-8.3 g/dL Albumin 2.6 L 3.5-5.0 g/dL ASSESSMENT: Right great toe ulcer infection with Streptococcus group G. Right foot cellulitis. Leukocytosis, resolving. Peripheral vascular disease. Atrial fibrillation, on anticoagulation. PLAN: Continue vancomycin per pharmacy protocol. Continue cefepime IV. Continue GI prophylaxis Continue wound care as recommended by Dr. Christianson. Continue monitoring glucose levels. Continue antiarrhythmics. Will Monitor electrolytes. This case was reviewed and discussed with my supervising physician and the above assessment and plan was formulated and agreed upon. ATTESTATION BY PHYSICIAN I have seen and examined the patient. I reviewed the documentation, medical decision making, and treatment plan as noted by the mid-level provider above. I agree with the findings and plan of care. ELVIS HADDAD MD, MIRTA L [facility] Jun 07, 2024 14:01
--- NOTE | 2024-06-07 17:00 | NUR ---
cm note pt and daughter wish to go to [facility]. sn[facility], pt has been accepted. nurse to call report when ready.
--- NOTE | 2024-06-07 18:55 | NUR ---
PATIENT DISCHARGED TO [facility]
== END 2024-06-07 18:55 | DRG 603 ==
LOC: EDH 08:38 → EDHIP 10:13 → 4BH 20:05
PROVIDERS: ADMIT Internal Medicine; ATTEND Internal Medicine
DX: L03.031 Cellulitis of right toe (principal); I42.9 Cardiomyopathy, unspecified; I13.0 Hypertensive heart and chronic kidney disease with heart failure and stage 1 through stage 4 chronic kidney disease, or unspecified chronic kidney disease; N18.31 Chronic kidney disease, stage 3a; Z68.27 Body mass index [BMI] 27.0-27.9, adult; I80.9 Phlebitis and thrombophlebitis of unspecified site; E11.22 Type 2 diabetes mellitus with diabetic chronic kidney disease; I48.91 Unspecified atrial fibrillation; I25.10 Atherosclerotic heart disease of native coronary artery without angina pectoris; E66.9 Obesity, unspecified; J44.9 Chronic obstructive pulmonary disease, unspecified; E78.5 Hyperlipidemia, unspecified; G47.33 Obstructive sleep apnea (adult) (pediatric); I50.9 Heart failure, unspecified; D72.829 Elevated white blood cell count, unspecified; E11.621 Type 2 diabetes mellitus with foot ulcer; E11.40 Type 2 diabetes mellitus with diabetic neuropathy, unspecified; E11.51 Type 2 diabetes mellitus with diabetic peripheral angiopathy without gangrene; L97.519 Non-pressure chronic ulcer of other part of right foot with unspecified severity; Z95.810 Presence of automatic (implantable) cardiac defibrillator; Z89.429 Acquired absence of other toe(s), unspecified side; Z79.01 Long term (current) use of anticoagulants; Z79.899 Other long term (current) drug therapy; Z79.82 Long term (current) use of aspirin; Z79.84 Long term (current) use of oral hypoglycemic drugs
CPT/HCPCS: 36415; 71045; 73660; 78315; 80048; 80053; 80076; 80202; 82948; 83605; 83735; 83880; 84145; 85025; 85610; 85651; 85730; 86140; 87040; 87070; 87076; 87804; 93971; 94640; 94664; 96374; 96375; 99285; A9503; G0378; J0692; J0696; J2543; 3370; J3370

== ENCOUNTER 2024-07-20 23:05 | Emergency (ER) | payer MEDICARE, OTHER ==
[~2024-07-20] VITALS: Ht 182.9 cm; Wt 91.2 kg
[~2024-07-20 23:05] MED LIST changes: -AMIO200T68 PO; -ATOR20TA65 PO; -ATOR40TA69 PO; +CALC1CAP22 PO; -CILO100T3 PO; -DULO30CA52 PO; -DUONEB IH; -METO-408 PO; -MONT-39 PO; -SPIR25TA6 PO
--- NOTE | 2024-07-20 23:45 | EKG ---
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
[2024-07-21 00:19] LABS: INFLUENZA TYPE A Negative For Type A (NEGATIVE); INFLUENZA TYPE B Negative For Type B (NEGATIVE); SARS-CoV-2, RNA, NAAT NEGATIVE SARS CoV-2 (NEGATIVE)
[2024-07-21 00:38] LABS: BASOPHILS # (AUTO) 0.05 K/uL (0.00-0.20); BASOPHILS % (AUTO) 0.6 % (0.0-5.0); EOSINOPHILS # (AUTO) 0.08 K/uL (0.00-0.70); HEMATOCRIT 43.4 % (42-54); IMMATURE GRANULOCYTE ABSOLUTE 0.04 K/uL (0-1); LYMPHOCYTES # (AUTO) 1.3 K/uL (1.0-4.8); LYMPHOCYTES % (AUTO) 16.5 % (21.0-51.0); MEAN CORPUSCULAR HEMOGLOBIN 30.4 pg (27.0-33.0); MEAN CORPUSCULAR HGB CONC 31.6 g/dL (32.0-36.0); MEAN CORPUSCULAR VOLUME 96.4 fL (79-99); MONOCYTES # (AUTO) 0.9 K/uL (0.1-1.0); MONOCYTES % (AUTO) 11.2 % (3.0-13.0); NEUTROPHILS # (AUTO) 5.6 K/uL (1.8-7.7); NEUTROPHILS % (AUTO) 70.2 % (40.0-77.0); PLATELET COUNT (AUTO) 248 K/uL (130-400)
[2024-07-21 00:50] LABS: CREATININE 1.1 mg/dL (0.5-1.3)
[2024-07-21 01:00] LABS: INR 0.95 (0.85-1.15); PROTHROMBIN TIME 10.7 SEC (9.6-11.6)
[2024-07-21 01:01] LABS: PARTIAL THROMBOPLASTIN TIME 28.5 SEC (26.3-35.5)
[2024-07-21 01:06] LABS: B-TYPE NATRIURETIC PEPTIDE 152 pg/mL (0-100)
[2024-07-21] MEDS: Solu-medROL 125MG VIAL IVP ONE (01:49)
--- NOTE | 2024-07-21 01:56 | ERN ---
General Chief Complaint: Shortness of Breath Stated Complaint: C/O SOB Time Seen by MD: 23:09 Source: patient History of Present Illness Initial Comments 79-year-old male coming in to be evaluated for shortness of breath. Patient has history of CHF as well as COPD. Patient has been having these symptoms for a couple of days and progressively gets worse. Patient has been using nebulized treatments at home but states they have not worked. Patient was here for further evaluation. No fever no chills. Allergies: Coded Allergies: No Known Drug Allergies (Unverified Allergy, Unknown, 01/14/14) Home Meds Active Scripts Levothyroxine Sodium (Synthroid 50 Mcg Tab) 50 Mcg Tablet, 50 MCG PO SYN for 30 Days, #30 TAB Prov:WILLIAM CESAR [facility] 05/03/24 Reported Medications Calcium Carbonate/Vitamin D3 (Calcium 600 + Vit D 400 Softgl) 600 Mg Calcium-10 Mcg (400 Unit) Capsule, 1 EACH PO DAILY, CAP 06/02/24 Povidone-Iodine (Povidone Iodine) 100 % Powder, 1 GM MC AD, APPL 04/25/24 Testosterone (Androgel) 20.25 Mg/1.25 Gram (1.62 %) Gel.packet, 1.25 GM TD AD 04/25/24 [Empaglifozin] No Conflict Check, 12.5 MG PO DAILY 04/25/24 Aspirin (Aspirin EC) 81 Mg Tablet.dr, 81 MG PO DAILY, TAB 04/06/23 Pantoprazole Sodium (Pantoprazole Sodium) 40 Mg Tablet.dr, 40 MG PO DAILY, TAB 04/06/23 Fexofenadine HCl (Fexofenadine HCl) 180 Mg Tablet, 180 MG PO DAILY, TAB 04/06/23 Magnesium Oxide (Mag-Oxide) 400 Mg (241.3 Mg Magnesium) Tablet, 400 MG PO DAILY, TAB 04/06/23 Acetaminophen (Tylenol) 500 Mg Tab, 500 MG PO Q6HPRN PRN for PAIN LEVEL 1 TO 5, TAB 07/17/22 Levothyroxine Sodium (Levothroid/Synthroid) 50 Mcg Tab, 50 MCG PO DAILY, TAB 07/05/18 Prazosin HCl (Prazosin HCl) 1 Mg Capsule, 2 MG PO HS, CAP 07/05/18 Montelukast Sodium (Singulair) 10 Mg Tablet, 10 MG PO HS, TAB 07/05/18 Multivitamin (Multi Vitamin Daily) 1 Each Tablet, 1 EACH PO DAILY, TAB 07/03/16 Calcium Carbonate (Calcium Carbonate 600 mg Tab) 600 Mg/Tab Tablet, 600 MG PO DAILY, TAB 03/12/16 Apixaban (Eliquis) 5 Mg Tablet, 5 MG PO BID, TAB 04/18/15 Past Medical History Past Medical History: CAD, CHF, COPD, Heart Disease, Hypertension, Other Medical History Other: DEFIB, ABLATION Past Surgical History: Pacer/AICD, Other Surgical History Other: RT HIP, SINUS, RT SHOULDER, Family History Family History: Negative Social History Social History: Negative, Lives with family ROS Dictation CONSTITUTIONAL: No chills, no fever, no weakness, no diaphoresis, no malaise. HEAD/FACE: No signs of trauma. EENT: No eye pain, no blurred vision, no tearing, no double vision, no ear pain, no ear discharge, no nose pain, no nasal congestion, no throat pain, no throat swelling, no mouth pain. RESPIRATORY: cough, no orthopnea, SOB, no stridor, no wheezing. CARDIOVASCULAR: No chest pain, no edema, no palpitations, no syncope. GASTROINTESTINAL/ABDOMINAL: No abdominal pain, no constipation, no diarrhea, no nausea, no vomiting. GENITOURINARY: No abnormal discharge, no dysuria, no frequent urination, no hematuria. No complaints of pain in the genitals. MUSCULOSKELETAL: No back pain, no gout, no joint pain, no joint swelling, no muscle pain, no muscle stiffness, no neck pain. INTEGUMENTARY: No change in color, no change in hair/nails, no dryness, no lesion, no lumps, no rash. NEUROLOGICAL/PSYCH: No anxiety, not depressed, no emotional problem, no headache, no numbness, no pre-existing deficit, no history of seizures, no tremors, no weakness. HEMATOLOGIC/LYMPHATIC: Not anemic, no history of blood clots, no apparent bleeding, no bruising, glands not swollen. All Systems Negative, Except as Noted. Physical Exam Physical Exam Dictation VITAL SIGNS: Reviewed. GENERAL APPEARANCE: Alert, oriented x3, no acute distress, obese. HEAD AND FACE: Non-traumatic. EYES: PERRL, pink conjunctivas, eyelid no trauma, anterior chamber clear. EARS: Pinnas intact and no signs of trauma or erythema. Ear canals clear and no discharge. TMs no erythema. NOSE: No discharge, no bleeding. OROPHARYNX: Mouth normal, teeth no caries, tongue pink. Pharynx clear, no erythema. Tonsils no exudates, no abscesses noted. Mucous membrane moist. NECK: Supple, non-tender, no thyromegaly, no masses, no JVD, no bruits. BREAST: Deferred. CHEST: No tenderness, no crepitus, no paradoxical movement, no retractions. LUNGS: Clear, well-ventilated, symmetric, no rales, wheezing, rhonchi, no stridor, good breath sounds bilaterally. HEART: Regular rate, regular rhythm, no murmur, no gallops. VASCULAR: No peripheral edema. ABDOMEN: Soft, positive bowel sounds, nondistended, no guarding, nontender, no rebound, no masses no hepatomegaly, no splenomegaly, no Leyva's sign, no hernias. RECTAL: Deferred. GENITAL: Deferred. NEUROLOGICAL: Normal speech, gross motor function intact, gross sensory function intact. MUSCULOSKELETAL: Neck nontender, full range of motion, back nontender, full range of motion. EXTREMITIES: Nontender, full range of motion. SKIN: Color pink, dry, no turgor, no rash, no lacerations, no abrasions, no contusions. LYMPHATICS: Deferred. Results Laboratory and Microbiology Lab and Micro Result Laboratory Tests Test 07/20/24 23:39 07/21/24 00:30 Influenza Type A Antigen Negative For Type A Influenza Type B Antigen Negative For Type B SARS-CoV-2, RNA, NAAT NEGATIVE SARS CoV-2 White Blood Count 8.0 K/uL (4.8-10.8) Red Blood Count 4.50 MIL/uL (4.50-6.20) Hemoglobin 13.7 g/dL (14.0-18.0) L Hematocrit 43.4 % (42-54) Mean Corpuscular Volume 96.4 fL (79-99) Mean Corpuscular Hemoglobin 30.4 pg (27.0-33.0) Mean Corpuscular Hemoglobin Concent 31.6 g/dL (32.0-36.0) L Red Cell Distribution Width 16.0 % (11.0-15.5) H Platelet Count 248 K/uL (130-400) Mean Platelet Volume 10.9 fL (7.5-10.5) H Immature Granulocyte % (Auto) 0.5 % (0-1) Neutrophils (%) (Auto) 70.2 % (40.0-77.0) Lymphocytes (%) (Auto) 16.5 % (21.0-51.0) L Monocytes (%) (Auto) 11.2 % (3.0-13.0) Eosinophils (%) (Auto) 1.0 % (0.0-8.0) Basophils (%) (Auto) 0.6 % (0.0-5.0) Neutrophils # (Auto) 5.6 K/uL (1.8-7.7) Lymphocytes # (Auto) 1.3 K/uL (1.0-4.8) Monocytes # (Auto) 0.9 K/uL (0.1-1.0) Eosinophils # (Auto) 0.08 K/uL (0.00-0.70) Basophils # (Auto) 0.05 K/uL (0.00-0.20) Absolute Immature Granulocyte (auto 0.04 K/uL (0-1) Nucleated Red Blood Cells 0.0 % (0.0-0.19) Prothrombin Time 10.7 SEC (9.6-11.6) Prothromb Time International Ratio 0.95 (0.85-1.15) Activated Partial Thromboplast Time 28.5 SEC (26.3-35.5) Sodium Level 144 mmol/L (136-145) Potassium Level 4.0 mmol/L (3.5-5.1) Chloride Level 109 mmol/L (101-111) Carbon Dioxide Level 31 mmol/L (21-32) Blood Urea Nitrogen 24 mg/dL (7-18) H Creatinine 1.1 mg/dL (0.5-1.3) Glomerular Filtration Rate Calc 67 mL/min (>90) Random Glucose 124 mg/dL (70-105) H Total Calcium 8.6 mg/dL (8.5-10.1) Magnesium Level 2.00 mg/dL (1.80-2.40) Total Creatine Kinase 84 U/L (21-232) # Troponin I High Sensitivity 35 ng/L (4-75) B-Type Natriuretic Peptide 152 pg/mL (0-100) H Triglycerides Level 94 mg/dL (30-200) Cholesterol Level 129 mg/dL (<200) # LDL Cholesterol 80 mg/dL (0-99) HDL Cholesterol 43 mg/dL (29-71) Labs Reviewed?: Yes EKG/XRAY/US/CT/MRI EKG Comment 07/20/2024 time 11:38 p.m. Ventricular rate [address] wave elevation or depression X-RAY Comment Chest [id number] pleural effusions history of COPD with fibrosis MDM MDM: Differential diagnosis: URI, COPD exacerbation, history of pulmonary fibrosis, Patient is a an 79-year-old gentleman coming in to be evaluated for shortness of breath. Per family member and patient he was has a extensive history of repeated COPD he was getting breathing treatments at home. Patient also has a history of trigeminal neuralgia which causes him significant pain., patient received IV steroids as well as breathing treatments states he feels much better he will be discharged with ongoing steroid treatment as well as in his antibiotics. Patient will be discharged in stable condition he states he feels good enough to go home. ED Course Orders Procedure Category Date Status Time Cbc With Differential LAB 07/20/24 Complete 23:23 Prothrombin Time With LAB 07/20/24 Complete INR 23:23 B-Type Natriuretic LAB 07/20/24 Complete Peptide 23:23 Lipid Panel LAB 07/20/24 Complete 23:23 Chest 1vw RAD 07/20/24 Taken 23:23 12 Lead Ekg Tracing- EKG 07/20/24 Complete Technical 23:23 Magnesium LAB 07/20/24 Complete 23:23 Creatine Kinase, Total LAB 07/20/24 Complete 23:23 Troponin I High LAB 07/20/24 Complete Sensitivity 23:23 Urinalysis Profile LAB 07/20/24 Logged 23:23 Partial LAB 07/20/24 Complete Thromboplastin Time 23:23 Basic Metabolic Panel LAB 07/20/24 Complete 23:23 Covid Rna Naat LAB 07/20/24 Complete 23:23 Influenza Type A & B, LAB 07/20/24 Complete Rapid 23:23 Methylprednisolone PHA 07/21/24 Complete Succ 125mg (Solu-Medr 01:30 Ipratropium/Albuterol PHA 07/21/24 Complete Neb (Duoneb) 01:30 Current Medications Medications (Trade) Dose Ordered Sig/Kika Route PRN Reason Start Time Stop Time Status Last Admin Dose Admin Albuterol (DUOneb) 2 udvial ONCE ONCE IH 07/21/24 01:30 07/21/24 01:31 DC 07/21/24 02:19 Methylprednisolone Sodium Succinate (Solu-medROL 125MG) 125 mg ONCE ONCE IVP 07/21/24 01:30 07/21/24 01:31 DC 07/21/24 01:49 Vital Signs Date Time Temp Pulse Resp B/P (MAP) Pulse Ox O2 Delivery O2 Flow Rate FiO2 07/21/24 03:01 86 18 136/70 97 Room Air* 0 21 07/21/24 01:57 98.4 85 18 144/78 98 Room Air* 0 21 07/20/24 23:08 98.2 83 20 112/67 98 Room Air DX & DISP Disposition: Inpatient Departure Impression: Primary Impression: COPD with exacerbation Additional Impression: Sinusitis Condition: Stable Scripts Prednisone (Prednisone) 5 Mg Tablet 1 TAB PO BID for 7 Days, #14 TAB 0 Refills Prov: BERRY GARCIA MD 07/21/24 Azithromycin (Azithromycin) 500 Mg Tablet 1 TAB PO DAILY for 5 Days, #5 TAB 0 Refills Prov: BERRY GARCIA MD 07/21/24 Additional Instructions: FOLLOW-UP WITH PRIMARY CARE PROVIDER IN 1 TO 2 DAYS. TAKE MEDICATIONS DIRECTED HERE IN THE EMERGENCY ROOM. OKAY TO CONTINUE HOME MEDICATIONS UNLESS OTHERWISE DISCUSSED DURING YOUR VISIT IN THE EMERGENCY ROOM TODAY. RETURN TO YOUR NEAREST EMERGENCY ROOM IF SYMPTOMS WORSEN OR IF THERE IS NO IMPROVEMENT. CALL 911 IF YOU NEED IMMEDIATE ASSISTANCE. TAKE TYLENOL [id number] NEEDED AND IF NO CONTRAINDICATIONS ARE PRESENT. INCREASE ORAL HYDRATION. A WOUND CULTURE OR URINE CULTURE WAS ORDERED HERE IN THE EMERGENCY ROOM DEPARTMENT PLEASE FOLLOW-UP WITH PRIMARY CARE PROVIDER AND ADVISE THEM TO GET REPEAT PORTS FROM OUR FACILITY. IF YOU HAD ANY MATTHEW WRAP/SPLINTS THAT WERE APPLIED HERE, PLEASE DO NOT REMOVE THEM UNTIL YOU SEE YOUR PRIMARY CARE OR SPECIALTY. Referrals: Referrals: SILVANO BRAUN MD (PCP) Time of Disposition: 03:50 BERRY GARCIA MD Jul 21, 2024 01:56
[2024-07-21] MEDS: IpraTROPium/alBUTERol SULFATE 3 ML SOLUTION IH ONE (02:19)
[2024-07-21] MEDS ORDERED: AZIT500T4 PO (03:51)
[2024-07-21] MEDS ORDERED: PRED5TAB PO (03:51)
[2024-07-21 04:02] VITALS: BP 132/74; PULSE 83; RESP 18; TEMP 98.2; O2SAT 96
--- NOTE | 2024-07-21 08:48 | HMCIMG ---
CHEST 1VW REASON: sob COMPARISON: 06/02/2024 FINDINGS: Lungs are clear. Heart size is borderline with no vascular congestion or pleural effusion. Right-sided pacemaker is again noted. IMPRESSION: 1. No acute process seen in the chest and no interval change.
== END 2024-07-21 04:05 | disposition home or self-care (01) ==
LOC: EDH 23:05
DX: J44.1 Chronic obstructive pulmonary disease with (acute) exacerbation (principal); J32.9 Chronic sinusitis, unspecified; I11.0 Hypertensive heart disease with heart failure; I50.9 Heart failure, unspecified; I25.10 Atherosclerotic heart disease of native coronary artery without angina pectoris; Z79.01 Long term (current) use of anticoagulants; Z79.82 Long term (current) use of aspirin; Z79.890 Hormone replacement therapy; Z79.899 Other long term (current) drug therapy; Z95.810 Presence of automatic (implantable) cardiac defibrillator; Z20.822 Contact with and (suspected) exposure to COVID-19
CPT/HCPCS: 99285; 71045; 87635; 80061; 82550; 83735; 84484; 80048; 83880; 85025; 85610; 85730; 87804 ×2; 36415; 93005; 96374; J2919

== ENCOUNTER → 2025-04-22 | Emergency (ER) | payer OTHER, MEDICARE ==
[~2025-04-22] VITALS: Ht 182.9 cm; Wt 87.1 kg
[~2025-04-22] MED LIST changes: +AMIO200T73 PO; +ASPI-1005 PO; -ASPI-1443 PO; +ATOR40TA69 PO; -CALC-916 PO; -CALC1CAP22 PO; +CARB15DR OP; +DULO30CA52 PO; +EMPA25TA PO; -EMPAGLIFLOZIN PO; -FEXO-263 PO; +FEXO-402 PO; +HONE44PA TP; +KETO-99 OP; -LEVO50 PO; +LEVO50TA11 PO; -MAGN400T25 PO; +MAGN400T53 PO; +METO-391 PO; +MONT-39 PO; -PRAZ1CAP5 PO; +SERT-439 PO; -TEST1.25 TD; +TORS10TA18 PO; -[UNRECOGNIZED DRUG - CODE] MC
[2025-04-22 18:00] VITALS: BP 96/56; PULSE 80; RESP 15; TEMP 98.8; O2SAT 96
--- NOTE | 2025-04-22 18:18 | HMCIMG ---
EXAM: RIGHT HAND RADIOGRAPH, 3+ VIEWS Technique: Posteroanterior, oblique, and lateral views of the right hand were obtained. Clinical Information: Trauma. Findings: Bones and joints: Diffuse osteopenic appearance of the osseous structures. Mild osteoarthritis of the first carpometacarpal (thumb base) joint with small marginal osteophytes and joint space narrowing. Mild degenerative changes of the interphalangeal joints. No acute fracture or dislocation is identified. Alignment: Overall alignment is preserved. Soft tissues: No focal soft-tissue swelling or radiopaque foreign body. Impression: * No acute osseous abnormality of the right hand. * Mild osteoarthritis involving the first carpometacarpal joint and interphalangeal joints. * Diffuse osteopenia???correlate with clinical risk factors; bone mineral density assessment may be considered if not recently performed. /[place]
--- NOTE | 2025-04-22 18:41 | ERN ---
ED Note History of Present Illness Stated Complaint: RIGHT HAND INJURY Chief Complaint: Hand Problem/Injury Time Seen by MD: 17:43 Time Seen by Midlevel: 17:45 Dictation: 79-year-old male with a history of CHF, diabetes coming in for evaluation of trauma to the right hand. States he hit his hand with a car door. Denies any other injury. Denies any other complaints. Patient has full mobility in range of motion to the right hand. Allergies: Coded Allergies: No Known Drug Allergies (Unverified Allergy, Unknown, 01/14/14) Home Meds Active Scripts Honey (Medihoney) 100 % Paste..ml., 0 APPL TP DAILY, #1 TUBE 0 Refills apply a thin layer to the wound topically once daily Prov:GLORIA DOAN MD 11/16/24 Levothyroxine Sodium (Synthroid 50 Mcg Tab) 50 Mcg Tablet, 50 MCG PO SYN for 30 Days, #30 TAB Prov:WILLIAM CESAR [facility] 05/03/24 Reported Medications Torsemide (Torsemide) 10 Mg Tablet, 1 TAB PO DAILY for 30 Days, #30 TAB 0 Refills 02/03/25 Sertraline HCl (Sertraline HCl) 50 Mg Tablet, 0.5 TAB PO DAILY for 30 Days, #30 TAB 0 Refills 02/03/25 Pantoprazole Sodium (Pantoprazole Sodium) 40 Mg Tablet.dr, 1 TAB PO DAILY for 30 Days, #30 TAB 0 Refills 02/03/25 Montelukast Sodium (Montelukast Sodium) 10 Mg Tablet, 1 TAB PO DAILY for 30 Days, #30 TAB 0 Refills 02/03/25 Metoprolol Succinate (Metoprolol Succinate) 50 Mg Tab.er.24h, 0.5 TAB PO DAILY for 30 Days, #30 TAB 0 Refills 02/03/25 Magnesium Oxide (Magnesium Oxide) 400 Mg Tablet, 1 TAB PO DAILY for 30 Days, #30 TAB 0 Refills 02/03/25 Levothyroxine Sodium (Levothyroxine Sodium) 50 Mcg Tablet, 1 TAB PO DAILY for 30 Days, #30 TAB 0 Refills 02/03/25 Ketotifen Fumarate (Ketotifen Fumarate) 0.025 % (0.035 %) Drops, 1 DROP OP BID, #5 ML 0 Refills 02/03/25 Fexofenadine HCl (Fexofenadine HCl) 180 Mg Tablet, 1 TAB PO DAILY for allergy symptoms for 30 Days, #30 TAB 0 Refills 02/03/25 Empagliflozin (Jardiance) 25 Mg Tablet, 0.5 TAB PO DAILY for 30 Days, #30 TAB 0 Refills 02/03/25 Carboxymethylcellulose Sodium (Refresh Tears) 0.5 % Drops, 1 DROP OP QID for 30 Days, #15 ML 0 Refills 02/03/25 Atorvastatin Calcium (LIPITOR) 40 Mg Tablet, 0.5 TAB PO DAILY for 30 Days, #30 TAB 0 Refills 02/03/25 Aspirin (ASPIRIN 81MG CHEW TAB) 81 Mg Tab.chew, 1 TAB PO DAILY for 30 Days, #30 TAB 0 Refills 02/03/25 Apixaban (Eliquis) 5 Mg Tablet, 1 TAB PO BID for 30 Days, #60 TAB 0 Refills 02/03/25 Amiodarone HCl (Amiodarone HCl) 200 Mg Tablet, 1 TAB PO DAILY for 30 Days, #30 TAB 0 Refills 02/03/25 Acetaminophen (Acetaminophen) 500 Mg Tablet, 1000 MG PO TIDP, TAB 11/14/24 Duloxetine HCl (Duloxetine HCl) 30 Mg Capsule.dr, 30 MG PO DAILY, CAP 11/14/24 Torsemide (Torsemide) 10 Mg Tablet, 10 MG PO DAILY, TAB 11/14/24 Montelukast Sodium (Singulair) 10 Mg Tablet, 10 MG PO HS, TAB 07/05/18 Multivitamin (Multi Vitamin Daily) 1 Each Tablet, 1 EACH PO DAILY, TAB 07/03/16 Apixaban (Eliquis) 5 Mg Tablet, 5 MG PO BID, TAB 04/18/15 Past Medical History Past Medical History: CHF, COPD, CVA Additional Past Medical Hx: INSOMINA, CEREBAL INFRACTION, BILATERAL HEARING LOSS Surgical History: Pacer/AICD, Other Surgical History Other: HIP REPLACEMENTS, BACK SX, SHOULDER SX. Family History: Negative Social History: Negative, Lives with family Review of System Dictation Constitutional: Negative for fever,chills, and weight loss Eyes: Negative for injury, pain,redness, and discharge ENT: Negative for injury,pain or swelling Cardiovascular: Negative for chest pain, palpitations, and edema Respiratory: Negative for shortness of breath, cough, and wheezing, Abdomen/GI: Negative for abdominal pain, nausea, vomiting, diarrhea, and constipation Back: Negative for injury and pain : Negative for injury, bleeding and discharge MS/Extremity: Negative for injury and deformity, right hand pain Skin: Negative for rash, and discoloration Neuro: Negative for headache, weakness, numbness, tingling, and seizure Psych: Negative for suicide ideation, homicidal ideation, and hallucinations Review of Systems: was completed Initial Vital Sign VS Vital Signs Date Time Temp Pulse Resp B/P (MAP) Pulse Ox O2 Delivery O2 Flow Rate FiO2 04/22/25 17:42 97.5 81 20 87/51 97 Room Air 0 04/22/25 18:00 21 Physical Exam Dictation General: awake, alert, NAD Head/Face: Normocephalic, atraumatic Eyes: PERRL, EOMI, vision at baseline ENT: oral cavity clear, TMs clear, no signs of infection Neck: Trachea midline, supple, no nuchal rigidity Cardiovascular: RRR, normal S1/S2, No MRGs, no JVD Respiratory: CTAB, no respiratory distress, No rales or wheezes Abdomen: Soft, non-tender, non-distended, normal bowel sounds, no guarding or rebound. Skin: Warm, dry, normal turgor, no rash MS/Extremity: Pulses equal, no cyanosis, neurovascular intact, FROM, bruising noted to the right dorsal of the hand, no hematoma swelling or deformity noted Neuro: COAx4, GCS 15, strength 5/5, CN 2-12 intact, normal cerebellar exam, normal gait, Psych: Normal behavior, mood, and affect normal Results (Laboratory/Radiology) X-RAY Comment: [id number] [id number] IMAGING REPORT Signed PATIENT: ABNER UPTON MR#: [id number] : 1945 SEX: M AGE: 79 LOCATION: [facility] ORDER 48 STATUS: REG ER REPORT#: [id number] SERVICE 46 REASON: trauma ORDERING PHYSICIAN: RANDOLPH MANZO CNP PROCEDURE: HAND 3V RT - HAND 3+VWS RT EXAM: RIGHT HAND RADIOGRAPH, 3+ VIEWS Technique: Posteroanterior, oblique, and lateral views of the right hand were obtained. Clinical Information: Trauma. Findings: Bones and joints: Diffuse osteopenic appearance of the osseous structures. Mild osteoarthritis of the first carpometacarpal (thumb base) joint with small marginal osteophytes and joint space narrowing. Mild degenerative changes of the interphalangeal joints. No acute fracture or dislocation is identified. Alignment: Overall alignment is preserved. Soft tissues: No focal soft-tissue swelling or radiopaque foreign body. Impression: * No acute osseous abnormality of the right hand. * Mild osteoarthritis involving the first carpometacarpal joint and interphalangeal joints. * Diffuse osteopenia???correlate with clinical risk factors; bone mineral density assessment may be considered if not recently performed. /[place] DICTATED BY: VALENTINO MATHEWS MD DATE: 04/22/251916 ELECTRONICALLY SIGNED BY: VALENTINO MATHEWS MD DATE: 04/22/251916 ED Course ED Course Orders Procedure Category Date Status Time Hand 3+Vws Rt RAD 04/22/25 Resulted 17:47 Vital Signs Date Time Temp Pulse Resp B/P (MAP) Pulse Ox O2 Delivery O2 Flow Rate FiO2 04/22/25 18:00 98.8 80 15 96/56 96 Room Air* 0 21 04/22/25 17:42 97.5 81 20 87/51 97 Room Air 0 Medical Decision Making MDM MDM: 79-year-old male with a history of CHF, diabetes coming in for evaluation of trauma to the right hand. States he hit his hand with a car door. Denies any other injury. Denies any other complaints. Patient has full mobility in range of motion to the right hand. X-ray shows no acute fractures noted. While patient was in the emergency room blood pressure is fluctuating between 87 systolic and 90s systolic. According to the daughter at bedside this is patient's baseline as they just started him on a new blood pressure medication. Patient is asymptomatic. Denies having any lightheadedness dizziness, chest pain, shortness a breath. Offered him a workup to check cardiac markers EKGs etc., daughter refused. Patient also states he would rather go home. Daughter states that she has a RN and will bring him back if they need to. Differential diagnosis: Contusion, fracture, dislocation Rationale: Tests considered and ordered secondary to shared decision making include: Previous outside records reviewed: Old ER visits. Risk of complication and/or morbidity or mortality of patient management: None Medications-Per medication reconciliation Need for hospitalization: Patient does not meet criteria for hospitalization. Need for emergency major/minor surgery: No There are no social concerns with this patient. Prescription drug management Prescriptions will include symptomatic care Patient's prior external medical records from other ER visits were reviewed by me as indicated. Prior testing and results from previous visits were reviewed. Prior tests were taken into account with medical decision making and resource utilization, independent historian/historians were used to obtain complete medical history. I independently interpreted the test that were performed, results were reviewed by me and considered findings on radiology if ordered. Medical management and examination interpretation discussions were had by me with other qualified healthcare professionals as indicated for the patient's care. DX & DISP Disposition: Discharge Departure Impression: Primary Impression: Hand contusion Condition: Stable Additional Instructions: Take [id number] medication for pain like Tylenol. Return to the hospital if you have any worsening symptoms. Referrals: SILVANO BRAUN MD (PCP) Time of Disposition: 18:40 I have reviewed the case, and I agree with, Diagnosis and Plan RANDOLPH MANZO [facility] Apr 22, 2025 18:41
== END ==
LOC: EDH 17:41
DX: S60.221A Contusion of right hand, initial encounter (principal); J44.9 Chronic obstructive pulmonary disease, unspecified; I50.9 Heart failure, unspecified; E11.9 Type 2 diabetes mellitus without complications; Z79.82 Long term (current) use of aspirin; Z79.84 Long term (current) use of oral hypoglycemic drugs; Z79.890 Hormone replacement therapy; Z79.899 Other long term (current) drug therapy; Z79.01 Long term (current) use of anticoagulants; Z86.73 Personal history of transient ischemic attack (TIA), and cerebral infarction without residual deficits; Z95.810 Presence of automatic (implantable) cardiac defibrillator; Z96.649 Presence of unspecified artificial hip joint; W22.8XXA Striking against or struck by other objects, initial encounter; Y93.89 Activity, other specified; Y92.810 Car as the place of occurrence of the external cause; Y99.8 Other external cause status
CPT/HCPCS: 73130; 99283

== ENCOUNTER 2025-05-22 14:41 | Emergency (ER) | payer OTHER, MEDICARE ==
[~2025-05-22] VITALS: Ht 182.9 cm; Wt 89.4 kg
--- NOTE | 2025-05-22 15:04 | ERN ---
General Chief Complaint: Mechanical Fall Stated Complaint: TRIP AND FALL. RT HIP PAIN. NO HEAD INJURY Time Seen by MD: 14:45 Source: patient, family History of Present Illness Initial Comments PATIENT IS A AN 79-YEAR-OLD GENTLEMAN COMING IN COMPLAINING OF RIGHT HIP PAIN. PER PATIENT HE HAS BEEN HAVING RIGHT HIP PAIN SINCE HE SLIPPED AND LANDED IN THE RIGHT HIP. PATIENT IS ABLE TO AMBULATE BUT WITH SOME DISCOMFORT. Allergies: Coded Allergies: No Known Drug Allergies (Unverified Allergy, Unknown, 01/14/14) Home Meds Active Scripts Honey (Medihoney) 100 % Paste..ml., 0 APPL TP DAILY, #1 TUBE 0 Refills apply a thin layer to the wound topically once daily Prov:GLORIA DOAN MD 11/16/24 Levothyroxine Sodium (Synthroid 50 Mcg Tab) 50 Mcg Tablet, 50 MCG PO SYN for 30 Days, #30 TAB Prov:WILLIAM CESAR AGACN 05/03/24 Reported Medications Torsemide (Torsemide) 10 Mg Tablet, 1 TAB PO DAILY for 30 Days, #30 TAB 0 Ref ills 02/03/25 Sertraline HCl (Sertraline HCl) 50 Mg Tablet, 0.5 TAB PO DAILY for 30 Days, #30 TAB 0 Refills 02/03/25 Pantoprazole Sodium (Pantoprazole Sodium) 40 Mg Tablet.dr, 1 TAB PO DAILY for 30 Days, #30 TAB 0 Refills 02/03/25 Montelukast Sodium (Montelukast Sodium) 10 Mg Tablet, 1 TAB PO DAILY for 30 Days, #30 TAB 0 Refills 02/03/25 Metoprolol Succinate (Metoprolol Succinate) 50 Mg Tab.er.24h, 0.5 TAB PO DAILY for 30 Days, #30 TAB 0 Refills 02/03/25 Magnesium Oxide (Magnesium Oxide) 400 Mg Tablet, 1 TAB PO DAILY for 30 Days, #30 TAB 0 Refills 02/03/25 Levothyroxine Sodium (Levothyroxine Sodium) 50 Mcg Tablet, 1 TAB PO DAILY for 30 Days, #30 TAB 0 Refills 02/03/25 Ketotifen Fumarate (Ketotifen Fumarate) 0.025 % (0.035 %) Drops, 1 DROP OP BID, #5 ML 0 Refills 02/03/25 Fexofenadine HCl (Fexofenadine HCl) 180 Mg Tablet, 1 TAB PO DAILY for allergy symptoms for 30 Days, #30 TAB 0 Refills 02/03/25 Empagliflozin (Jardiance) 25 Mg Tablet, 0.5 TAB PO DAILY for 30 Days, #30 TAB 0 Refills 02/03/25 Carboxymethylcellulose Sodium (Refresh Tears) 0.5 % Drops, 1 DROP OP QID for 30 Days, #15 ML 0 Refills 02/03/25 Atorvastatin Calcium (LIPITOR) 40 Mg Tablet, 0.5 TAB PO DAILY for 30 Days, #30 TAB 0 Refills 02/03/25 Aspirin (ASPIRIN 81MG CHEW TAB) 81 Mg Tab.chew, 1 TAB PO DAILY for 30 Days, #30 TAB 0 Refills 02/03/25 Apixaban (Eliquis) 5 Mg Tablet, 1 TAB PO BID for 30 Days, #60 TAB 0 Refills 02/03/25 Amiodarone HCl (Amiodarone HCl) 200 Mg Tablet, 1 TAB PO DAILY for 30 Days, #30 TAB 0 Refills 02/03/25 Acetaminophen (Acetaminophen) 500 Mg Tablet, 1000 MG PO TIDP, TAB 11/14/24 Duloxetine HCl (Duloxetine HCl) 30 Mg Capsule.dr, 30 MG PO DAILY, CAP 11/14/24 Torsemide (Torsemide) 10 Mg Tablet, 10 MG PO DAILY, TAB 11/14/24 Montelukast Sodium (Singulair) 10 Mg Tablet, 10 MG PO HS, TAB 07/05/18 Multivitamin (Multi Vitamin Daily) 1 Each Tablet, 1 EACH PO DAILY, TAB 07/03/16 Apixaban (Eliquis) 5 Mg Tablet, 5 MG PO BID, TAB 04/18/15 Past Medical History Past Medical History: CHF, COPD, CVA Medical History Other: INSOMINA, CEREBAL INFRACTION, BILATERAL HEARING LOSS Past Surgical History: Pacer/AICD, Other Surgical History Other: HIP REPLACEMENTS, BACK SX, SHOULDER SX. Family History Family History: Negative Social History Social History: Negative, Lives with family ROS Dictation CONSTITUTIONAL: NO CHILLS, NO FEVER, NO WEAKNESS, NO DIAPHORESIS, NO MALAISE. HEAD/FACE: NO SIGNS OF TRAUMA. EENT: NO EYE PAIN, NO BLURRED VISION, NO TEARING, NO DOUBLE VISION, NO EAR PAIN, NO EAR DISCHARGE, NO NOSE PAIN, NO NASAL CONGESTION, NO THROAT PAIN, NO THROAT SWELLING, NO MOUTH PAIN. RESPIRATORY: NO COUGH, NO ORTHOPNEA, NO SOB, NO STRIDOR, NO WHEEZING. CARDIOVASCULAR: NO CHEST PAIN, NO EDEMA, NO PALPITATIONS, NO SYNCOPE. GASTROINTESTINAL/ABDOMINAL: NO ABDOMINAL PAIN, NO CONSTIPATION, NO DIARRHEA, NO NAUSEA, NO VOMITING. GENITOURINARY: NO ABNORMAL DISCHARGE, NO DYSURIA, NO FREQUENT URINATION, NO HEMATURIA. NO COMPLAINTS OF PAIN IN THE GENITALS. MUSCULOSKELETAL: NO BACK PAIN, NO GOUT, JOINT PAIN, NO JOINT SWELLING, MUSCLE PAIN, NO MUSCLE STIFFNESS, NO NECK PAIN. INTEGUMENTARY: NO CHANGE IN COLOR, NO CHANGE IN HAIR/NAILS, NO DRYNESS, NO LESION, NO LUMPS, NO RASH. NEUROLOGICAL/PSYCH: NO ANXIETY, NOT DEPRESSED, NO EMOTIONAL PROBLEM, NO HEADACHE, NO NUMBNESS, NO PRE-EXISTING DEFICIT, NO HISTORY OF SEIZURES, NO TREMORS, NO WEAKNESS. HEMATOLOGIC/LYMPHATIC: NOT ANEMIC, NO HISTORY OF BLOOD CLOTS, NO APPARENT BLEEDING, NO BRUISING, GLANDS NOT SWOLLEN. ALL SYSTEMS NEGATIVE, EXCEPT NOTED. Physical Exam Physical Exam Dictation VITAL SIGNS: REVIEWED. GENERAL APPEARANCE: ALERT, ORIENTED X3, NO ACUTE DISTRESS, OBESE. HEAD AND FACE: NON-TRAUMATIC. EYES: PERRL, PINK CONJUNCTIVAS, EYELID NO TRAUMA, ANTERIOR CHAMBER CLEAR. EARS: PINNAS INTACT AND NO SIGNS OF TRAUMA OR ERYTHEMA. EAR CANALS CLEAR AND NO DISCHARGE. TMS NO ERYTHEMA. NOSE: NO DISCHARGE, NO BLEEDING. OROPHARYNX: MOUTH NORMAL, TEETH NO CARIES, TONGUE PINK. PHARYNX CLEAR, NO ERYTHEMA. TONSILS NO EXUDATES, NO ABSCESSES NOTED. MUCOUS MEMBRANE MOIST. NECK: SUPPLE, NON-TENDER, NO THYROMEGALY, NO MASSES, NO JVD, NO BRUITS. BREAST: DEFERRED. CHEST: NO TENDERNESS, NO CREPITUS, NO PARADOXICAL MOVEMENT, NO RETRACTIONS. LUNGS: CLEAR, WELL-VENTILATED, SYMMETRIC, NO RALES, NO WHEEZING, NO RHONCHI, NO STRIDOR, GOOD BREATH SOUNDS BILATERALLY. HEART: REGULAR RATE, REGULAR RHYTHM, NO MURMUR, NO GALLOPS. VASCULAR: NO PERIPHERAL EDEMA. ABDOMEN: SOFT, POSITIVE BOWEL SOUNDS, NONDISTENDED, NO GUARDING, NONTENDER, NO REBOUND, NO MASSES NO HEPATOMEGALY, NO SPLENOMEGALY, NO IQBAL'S SIGN, NO HERNIAS. RECTAL: DEFERRED. GENITAL: DEFERRED. NEUROLOGICAL: NORMAL SPEECH, GROSS MOTOR FUNCTION INTACT, GROSS SENSORY FUNCTION INTACT. MUSCULOSKELETAL: NECK NONTENDER, FULL RANGE OF MOTION, BACK NONTENDER, FULL RANGE OF MOTION. EXTREMITIES: NONTENDER, FULL RANGE OF MOTION. RIGHT HIP PAIN ON PALPATION SKIN: COLOR PINK, DRY, NO TURGOR, NO RASH, NO LACERATIONS, NO ABRASIONS, NO CONTUSIONS. LYMPHATICS: DEFERRED. Results Laboratory and Microbiology Labs Reviewed?: Yes EKG/XRAY/US/CT/MRI X-RAY Comment [facility] [address] [place] [address] IMAGING REPORT Signed PATIENT: ABNER UPTON MR#: [id number] : 1945 SEX: M AGE: 79 LOCATION: [facility] ORDER 48 STATUS: [facility] ER REPORT#: [id number] SERVICE 47 REASON: FALL ORDERING PHYSICIAN: BERRY GARCIA MD PROCEDURE: HIP U 2V R - HIP UNILAT 2-3VW RIGHT EXAM: CR right Hip, 4 View. CLINICAL HISTORY: FALL COMPARISON: None provided. FINDINGS: Bilateral total hip arthroplasties in near-anatomic alignment with no periprosthetic fracture appreciated. Heterotopic ossification about both hip joints. Joint spaces remain anatomically aligned. Incidental spondylosis at the visualized lower lumbar spine. IMPRESSION: 1. No acute osseous injury. 2. Bilateral total hip arthroplasties in near-anatomic alignment with heterotopic ossification about both hip joints. /[place] DICTATED BY: SONIA KRISHNAN Jr., MD DATE: 05/22/251747 ELECTRONICALLY SIGNED BY: SONIA KRISHNAN Jr., MD DATE: 05/22/251747 [facility] MDM: DIFFERENTIAL DIAGNOSIS: HIP STRAIN, HIP FRACTURE, FALL, RATIONALE: TESTS CONSIDERED AND ORDERED SECONDARY TO SHARED DECISION MAKING INCLUDE: PREVIOUS OUTSIDE RECORDS REVIEWED: OLD ER VISITS. RISK OF COMPLICATION AND/OR MORBIDITY OR MORTALITY OF PATIENT MANAGEMENT: NONE MEDICATIONS-PER MEDICATION RECONCILIATION NEED FOR HOSPITALIZATION: PATIENT DOES NOT MEET CRITERIA FOR HOSPITALIZATION. NEED FOR EMERGENCY MAJOR/MINOR SURGERY: NO THERE ARE NO SOCIAL CONCERNS WITH THIS PATIENT. PATIENT IS A AN 79-YEAR-OLD TO BE EVALUATED WITH THE HE FELL DOWN. HE WAS CONCERNED BECAUSE HE DOES HAS A HISTORY OF HIP SURGERY. X-RAY DID NOT DISCLOSE ACUTE FINDINGS. PATIENT WILL BE DISCHARGED IN STABLE CONDITION WITH A DIAGNOSIS OF HIP STRAIN. ED Course Orders Procedure Category Date Status Time Hip Unilat 2-3vw Right RAD 05/22/25 Resulted 14:48 Acetaminophen 500mg PHA 05/22/25 Complete Tab (Tylenol 500mg T 15:00 Ketorolac PHA 05/22/25 Complete Tromethamine 15mg/Ml 15:30 Current Medications Medications (Trade) Dose Ordered Sig/Kika Route PRN Reason Start Time Stop Time Status Last Admin Dose Admin Acetaminophen (TYLenol 500MG TAB) 500 mg ONCE ONCE PO 05/22/25 15:00 05/22/25 15:09 DC Ketorolac Tromethamine (toRADol) 15 mg ONCE ONCE IV 05/22/25 15:30 05/22/25 15:31 DC 05/22/25 15:35 Vital Signs Date Time Temp Pulse Resp B/P (MAP) Pulse Ox O2 Delivery O2 Flow Rate FiO2 05/22/25 15:46 84 16 115/66 95 Room Air* 0 21 05/22/25 14:42 97.7 86 16 105/62 97 Room Air 0 DX & DISP Disposition: Discharge Departure Impression: Primary Impression: Hip strain Additional Impression: Fall Condition: Stable Scripts Lidocaine HCl (Lidocaine HCl) 4 % Adh..patch 1 PATCH TP DAILY for 7 Days, #7 PATCH 0 Refills Prov: BERRY GARCIA MD 05/22/25 Additional Instructions: FOLLOW-UP WITH PRIMARY CARE PROVIDER IN 1 TO 2 DAYS. TAKE MEDICATIONS DIRECTED HERE IN THE EMERGENCY ROOM. OKAY TO CONTINUE HOME MEDICATIONS UNLESS OTHERWISE DISCUSSED DURING YOUR VISIT IN THE EMERGENCY ROOM TODAY. RETURN TO YOUR NEAREST EMERGENCY ROOM IF SYMPTOMS WORSEN OR IF THERE IS NO IMPROVEMENT. CALL 911 IF YOU NEED IMMEDIATE ASSISTANCE. TAKE TYLENOL [id number] NEEDED AND IF NO CONTRAINDICATIONS ARE PRESENT. INCREASE ORAL HYDRATION. A WOUND CULTURE OR URINE CULTURE WAS ORDERED HERE IN THE EMERGENCY ROOM DEPARTMENT PLEASE FOLLOW-UP WITH PRIMARY CARE PROVIDER AND ADVISE THEM TO GET REPORTS FROM OUR FACILITY. IF YOU HAD ANY MATTHEW WRAP/SPLINTS THAT WERE APPLIED HERE, PLEASE DO NOT REMOVE THEM UNTIL YOU SEE YOUR PRIMARY CARE OR SPECIALTY. REFERRALS: Referrals: SILVANO BRAUN MD (PCP) BETTE ARNOLD MD Time of Disposition: 17:29 BERRY GARCIA MD May 22, 2025 15:04
--- NOTE | 2025-05-22 16:49 | HMCIMG ---
EXAM: CR right Hip, 4 View. CLINICAL HISTORY: FALL COMPARISON: None provided. FINDINGS: Bilateral total hip arthroplasties in near-anatomic alignment with no periprosthetic fracture appreciated. Heterotopic ossification about both hip joints. Joint spaces remain anatomically aligned. Incidental spondylosis at the visualized lower lumbar spine. IMPRESSION: 1. No acute osseous injury. 2. Bilateral total hip arthroplasties in near-anatomic alignment with heterotopic ossification about both hip joints. /[place]
[2025-05-22 17:29] VITALS: BP 111/70; PULSE 78; RESP 16; TEMP 98.2; O2SAT 98
[2025-05-22] MEDS ORDERED: LIDO-15 TP (17:31)
== END 2025-05-22 18:17 | disposition home or self-care (01) ==
LOC: EDH 14:41
DX: S76.011A Strain of muscle, fascia and tendon of right hip, initial encounter (principal); I50.9 Heart failure, unspecified; J44.9 Chronic obstructive pulmonary disease, unspecified; Z79.01 Long term (current) use of anticoagulants; Z79.82 Long term (current) use of aspirin; Z79.84 Long term (current) use of oral hypoglycemic drugs; Z79.890 Hormone replacement therapy; Z79.899 Other long term (current) drug therapy; Z86.73 Personal history of transient ischemic attack (TIA), and cerebral infarction without residual deficits; Z95.810 Presence of automatic (implantable) cardiac defibrillator; Z96.643 Presence of artificial hip joint, bilateral; W01.0XXA Fall on same level from slipping, tripping and stumbling without subsequent striking against object, initial encounter; Y93.89 Activity, other specified; Y92.89 Other specified places as the place of occurrence of the external cause; Y99.8 Other external cause status
CPT/HCPCS: 99283; 96374; 73502; J1885